=== PATIENT | female | born 1960 | race Two or more races ===

== ENCOUNTER 2017-05-25 16:21 | Inpatient (IN) | payer SELFPAY ==
[2017-05-25] MEDS ORDERED: METOCLOPRAMIDE HCL 10 MG/2 ML VIAL. IV (16:30)
[2017-05-25] MEDS ORDERED: diphenhydrAMINE HCL 25 MG CAPSULE PO (16:30)
[2017-05-25] MEDS ORDERED: DEXTROSE 50% 25 GM / 50ML DISP.SYRIN. IV (16:30)
[2017-05-25] MEDS ORDERED: PROMETHAZINE 25 MG in IV DEXTROSE 5% 50 ML IV (16:30)
[2017-05-25] MEDS ORDERED: ONDANSETRON PF 4 MG/2 ML VIAL. IV (16:30)
[2017-05-25] MEDS: INSULIN ASPART 300 UNITS/3 ML INSULN.PEN SQ (17:00)
[2017-05-25] MEDS: POTASSIUM CL 40MEQ D5-0.45NACL 1,000 ML IV (17:43)
[2017-05-25] MEDS: LIPASE/PROTEAS/AMYLAS 10/34/55 CAPSULE.DR. PO (17:43)
[2017-05-25] MEDS: AZITHROMYCIN 500 MG in IV DEXTROSE 5 %-0.2 % NACL 250 ML IV (17:44)
[2017-05-25] MEDS: fentaNYL PF VIAL 100 MCG/2 ML VIAL IV (19:50)
[2017-05-25] MEDS: METOPROLOL TART IMMED RELEASE 50 MG TABLET. PO (21:14)
[2017-05-25] MEDS: LACTOBACILLUS RHAMNOSUS GG 1 CAPSULE. PO (21:14)
[2017-05-25] MEDS: ZOLPIDEM 5 MG TABLET. PO (23:32)
[2017-05-26 05:30] LABS: HEMATOCRIT 32.4 % (36.0-47.0); HEMOGLOBIN 10.8 g/dL (12.0-15.5); MEAN CORPUSCULAR HEMOGLOBIN 27 pg (25-35); MEAN CORPUSCULAR HGB CONC 33 g/dL (31-37); MEAN CORPUSCULAR VOLUME 81 fL (79-100); PLATELET COUNT 290 x10^3/uL (140-400); RED BLOOD COUNT 3.99 x10^6/uL (3.50-5.40); RED CELL DISTRIBUTION WIDTH 14.7 % (11.5-14.5); WHITE BLOOD COUNT 5.1 x10^3/uL (4.0-11.0)
[2017-05-26 06:02] LABS: ALBUMIN 2.3 g/dL (3.4-5.0); ALBUMIN/GLOBULIN RATIO 0.7 (1.0-1.7); ALK PHOS 94 U/L (46-116); ALT (SGPT) 14 U/L (14-59); ANION GAP 8 (6-14); AST (SGOT) 14 U/L (15-37); BLOOD UREA NITROGEN 12 mg/dL (7-20); BUN/CREATININE RATIO 11 (6-20); CALCIUM 8.3 mg/dL (8.5-10.1); CARBON DIOXIDE 22 mmol/L (21-32); CHLORIDE 101 mmol/L (98-107); CREATININE 1.1 mg/dL (0.6-1.0); GLUCOSE 217 mg/dL (70-99); LIPASE 498 U/L (73-393); POTASSIUM 4.5 mmol/L (3.5-5.1); SODIUM 131 mmol/L (136-145); TOTAL BILIRUBIN 0.3 mg/dL (0.2-1.0); TOTAL PROTEIN 5.5 g/dL (6.4-8.2)
[2017-05-26] MEDS: POTASSIUM CL 40MEQ D5-0.45NACL 1,000 ML IV ×2 (06:19→23:00)
[2017-05-26 07:39] LABS: POC GLUCOSE 124 mg/dL (70-99)
[2017-05-26 08:24] LABS: POC GLUCOSE 232 mg/dL (70-99)
[2017-05-26] MEDS: LIPASE/PROTEAS/AMYLAS 10/34/55 CAPSULE.DR. PO ×3 (08:55→17:00)
[2017-05-26] MEDS: PANTOPRAZOLE 40 MG TABLET.DR. PO (08:55)
[2017-05-26] MEDS: LACTOBACILLUS RHAMNOSUS GG 1 CAPSULE. PO ×2 (08:55→21:00)
[2017-05-26] MEDS: METOPROLOL TART IMMED RELEASE 50 MG TABLET. PO ×2 (08:56→21:00)
[2017-05-26] MEDS: LISINOPRIL 20 MG TABLET PO (08:56)
[2017-05-26] MEDS ORDERED: AZITHRMYCN 500MG IVPB FOR OMNI 250 ML IV (09:00)
[2017-05-26] MEDS: INSULIN ASPART 300 UNITS/3 ML INSULN.PEN SQ ×3 (09:02→17:05)
[2017-05-26] MEDS ORDERED: FAMOTIDINE 20 MG/2 ML VIAL (09:28)
[2017-05-26] MEDS ORDERED: fentaNYL PF VIAL 100 MCG/2 ML VIAL (09:28)
[2017-05-26] MEDS ORDERED: PROPOFOL 20 ML IV (09:28)
[2017-05-26] MEDS ORDERED: MIDAZOLAM HCL/PF 2 MG/2 ML VIAL. (09:28)
[2017-05-26] MEDS ORDERED: DEXAMETHASONE SOD PHOS 20 MG/5 ML VIAL. (09:28)
[2017-05-26] MEDS ORDERED: METOCLOPRAMIDE HCL 10 MG/2 ML VIAL. ×2 (09:29→09:51)
[2017-05-26] MEDS ORDERED: ONDANSETRON PF 4 MG/2 ML VIAL. (09:29)
[2017-05-26] MEDS ORDERED: SUCCINYLCHOLINE 200 MG/10 ML VIAL. (09:45)
[2017-05-26 09:50] LABS: POC GLUCOSE 241 mg/dL (70-99)
[2017-05-26] MEDS: IV RINGERS,LACTATED 1000ML 1,000 ML IV (09:52)
[2017-05-26] MEDS ORDERED: MORPHINE SULFATE 4 MG/ML DISP.SYRIN. IV (10:00)
[2017-05-26] MEDS ORDERED: fentaNYL PF VIAL 100 MCG/2 ML VIAL IV ×2 (10:00)
[2017-05-26] MEDS ORDERED: ONDANSETRON PF 4 MG/2 ML VIAL. IV (10:00)
[2017-05-26] MEDS ORDERED: PROCHLORPERAZINE 10 MG/2 ML VIAL. IV (10:00)
[2017-05-26] MEDS ORDERED: LIDOCAINE 1% PF 2 ML VIAL. ID (10:00)
[2017-05-26] MEDS: HEPARIN for IV BOLUS 10,000 UNIT/10 ML VIAL. (10:11)
[2017-05-26] MEDS: HEPARIN PF 500 UNIT/5 ML DISP.SYRIN. IV (10:11)
[2017-05-26] MEDS: BUPIVACAINE 0.25% 50 ML VIAL. (10:11)
[2017-05-26] MEDS: hydrALAZINE 20 MG/ML VIAL. IVP (11:27)
[2017-05-26 12:11] LABS: POC GLUCOSE 230 mg/dL (70-99)
[2017-05-26] MEDS: AZITHROMYCIN 500 MG in IV DEXTROSE 5 %-0.2 % NACL 250 ML IV (16:55)
[2017-05-26] MEDS: fentaNYL PF VIAL 100 MCG/2 ML VIAL IV (17:10)
[2017-05-26 17:15] LABS: POC GLUCOSE 313 mg/dL (70-99)
[2017-05-26 21:14] LABS: POC GLUCOSE 295 mg/dL (70-99)
[2017-05-26] MEDS: ZOLPIDEM 5 MG TABLET. PO (21:31)
[2017-05-27 08:27] LABS: POC GLUCOSE 274 mg/dL (70-99)
[2017-05-27] MEDS ORDERED: HYDROcodone/APAP 5/325MG 1 TAB TABLET PO (09:45)
[2017-05-27] MEDS ORDERED: traMADol 50 MG TABLET PO (09:45)
[2017-05-27] MEDS ORDERED: PROMETHAZINE 25 MG SUPP.RECT. PR (09:45)
[2017-05-27] MEDS: METOPROLOL TART IMMED RELEASE 50 MG TABLET. PO (09:47)
[2017-05-27] MEDS: LISINOPRIL 20 MG TABLET PO (09:47)
[2017-05-27] MEDS: LIPASE/PROTEAS/AMYLAS 10/34/55 CAPSULE.DR. PO ×2 (09:48→12:37)
[2017-05-27] MEDS: PANTOPRAZOLE 40 MG TABLET.DR. PO (09:48)
[2017-05-27] MEDS: LACTOBACILLUS RHAMNOSUS GG 1 CAPSULE. PO (09:48)
[2017-05-27] MEDS: fentaNYL PF VIAL 100 MCG/2 ML VIAL IV (09:49)
[2017-05-27] MEDS: INSULIN ASPART 300 UNITS/3 ML INSULN.PEN SQ ×3 (09:52→11:30)
[2017-05-27] MEDS ORDERED: LISINOPRIL 20 MG TABLET PO (10:00)
[2017-05-27 10:32] LABS: ANION GAP 12 (6-14); BLOOD UREA NITROGEN 11 mg/dL (7-20); CALCIUM 8.4 mg/dL (8.5-10.1); CARBON DIOXIDE 21 mmol/L (21-32); CHLORIDE 98 mmol/L (98-107); CREATININE 0.9 mg/dL (0.6-1.0); GFR 64.3; GLUCOSE 312 mg/dL (70-99); POTASSIUM 4.3 mmol/L (3.5-5.1); SODIUM 131 mmol/L (136-145)
[2017-05-27 10:34] LABS: LIPASE 636 U/L (73-393)
[2017-05-27] MEDS: CITALOPRAM 20 MG TABLET. PO (11:05)
[2017-05-27] MEDS: EZETIMIBE 10 MG TABLET. PO (11:06)
[2017-05-27] MEDS: CLOPIDOGREL BISULFATE 75 MG TABLET PO (11:06)
[2017-05-27 11:08] LABS: POC GLUCOSE 238 mg/dL (70-99)
[2017-05-27] MEDS ORDERED: LIPASE/PROTEAS/AMYLAS 10/34/55 CAPSULE.DR. PO (12:00)
[2017-05-27] MEDS: POTASSIUM CL 40MEQ D5-0.45NACL 1,000 ML IV (12:36)
[2017-05-27] MEDS: HEPARIN PF 500 UNIT/5 ML DISP.SYRIN. IV (16:15)
[2017-05-27] MEDS ORDERED: NON FORMULARY ITEM (Zolpidem Tartrate (Ambien) 1 TAB) PO (21:00)
[2017-05-27] MEDS ORDERED: metroNIDAZOLE 500 MG TABLET PO (21:00)
[2017-05-27] MEDS ORDERED: traZODone 100 MG TABLET. PO (21:00)
[2017-05-27] MEDS ORDERED: ATORVASTATIN CALCIUM 10 MG TABLET. PO (21:00)
[2017-05-27] MEDS ORDERED: AMITRIPTYLINE HCL 10 MG TABLET. PO (21:00)
[2017-05-27] MEDS ORDERED: CARVEDILOL 3.125 MG TABLET. PO (21:00)
[2017-05-27] MEDS ORDERED: INSULIN DETEMIR 300 UNITS/3 ML INSULN.PEN. SQ (21:00)
[2017-05-27] MEDS ORDERED: ZOLPIDEM 5 MG TABLET. PO (21:00)
[2017-05-28] MEDS ORDERED: METOPROLOL SUCC 24HR ER 25 MG TAB.ER.24H. PO (09:00)
[2017-05-28] MEDS ORDERED: NON FORMULARY ITEM (Omeprazole 40 MG) PO (09:00)
== END 2017-05-27 16:15 | disposition home or self-care (01) | DRG 74 ==
LOC: 5 NORTH 16:21
PROVIDERS: Internal Medicine
PROC: 0JH60WZ Insertion of Totally Implantable Vascular Access Device into Chest Subcutaneous Tissue and Fascia, Open Approach (ICD-10-PCS; principal; 2017-05-26 09:50)
PROC: 02HV33Z Insertion of Infusion Device into Superior Vena Cava, Percutaneous Approach (ICD-10-PCS; 2017-05-26 09:50)
PROC: B5181ZA Fluoroscopy of Superior Vena Cava using Low Osmolar Contrast, Guidance (ICD-10-PCS; 2017-05-26 09:50)
DX: E11.43 Type 2 diabetes mellitus with diabetic autonomic (poly)neuropathy (principal); K31.84 Gastroparesis; E11.10 Type 2 diabetes mellitus with ketoacidosis without coma; E78.5 Hyperlipidemia, unspecified; F32.9 Major depressive disorder, single episode, unspecified; I10 Essential (primary) hypertension; I25.10 Atherosclerotic heart disease of native coronary artery without angina pectoris; I25.2 Old myocardial infarction; K21.9 Gastro-esophageal reflux disease without esophagitis; K57.30 Diverticulosis of large intestine without perforation or abscess without bleeding; Z82.49 Family history of ischemic heart disease and other diseases of the circulatory system; Z83.3 Family history of diabetes mellitus; Z85.3 Personal history of malignant neoplasm of breast; Z87.11 Personal history of peptic ulcer disease; Z90.11 Acquired absence of right breast and nipple; Z90.49 Acquired absence of other specified parts of digestive tract; Z95.5 Presence of coronary angioplasty implant and graft; F41.9 Anxiety disorder, unspecified; M19.90 Unspecified osteoarthritis, unspecified site; Z90.10 Acquired absence of unspecified breast and nipple; Z80.9 Family history of malignant neoplasm, unspecified
CPT/HCPCS: 36415; 36556; 80048; 80053; 82962; 83690; 85027; C1788; J0330; J0360; J0456; J1100; J1644; J1815; J1956; J2250; J2405; J2704; J2765; J3010; J3490; J7042; S0028

== ENCOUNTER 2017-06-08 19:24 | Inpatient (IN) | payer SELFPAY ==
[2017-06-08] MEDS ORDERED: hydrALAZINE 20 MG/ML VIAL. IVP (21:15)
[2017-06-08] MEDS ORDERED: DEXTROSE 50% 25 GM / 50ML DISP.SYRIN. IV (21:15)
[2017-06-08] MEDS ORDERED: METOCLOPRAMIDE HCL 10 MG/2 ML VIAL. IV (21:15)
[2017-06-08] MEDS: IV NORMAL SALINE 1000ML BAG 1,000 ML IV (21:15)
[2017-06-08] MEDS: traZODone 100 MG TABLET. PO (22:23)
[2017-06-08] MEDS: ONDANSETRON ODT 4 MG TAB.RAPDIS. PO (22:23)
[2017-06-09] MEDS: IV NORMAL SALINE 1000ML BAG 1,000 ML IV ×2 (07:15→17:24)
[2017-06-09] MEDS: PANTOPRAZOLE IV PUSH 40 MG VIAL. IVP (07:30)
[2017-06-09 07:45] LABS: ADD MAN DIFF? NO
[2017-06-09 07:49] LABS: BASO % 1 % (0-3); EOS # 0.1 x10^3/uL (0.0-0.7); EOS % 2 % (0-3); HEMATOCRIT 29.2 % (36.0-47.0); HEMOGLOBIN 9.7 g/dL (12.0-15.5); LYMPH # 1.2 x10^3/uL (1.0-4.8); LYMPH % 28 % (24-48); MEAN CORPUSCULAR HEMOGLOBIN 27 pg (25-35); MEAN CORPUSCULAR HGB CONC 33 g/dL (31-37); MEAN CORPUSCULAR VOLUME 81 fL (79-100); MONO # 0.4 x10^3/uL (0.0-1.1); MONO % 9 % (0-9); NEUT # 2.6 x10^3uL (1.8-7.7); NEUT % 61 % (31-73); PLATELET COUNT 260 x10^3/uL (140-400); RED CELL DISTRIBUTION WIDTH 14.7 % (11.5-14.5); WHITE BLOOD COUNT 4.3 x10^3/uL (4.0-11.0)
[2017-06-09] MEDS ORDERED: INSULIN ASPART 300 UNITS/3 ML INSULN.PEN SQ (08:00)
[2017-06-09 08:05] LABS: POC GLUCOSE 173 mg/dL (70-99)
[2017-06-09 08:06] LABS: ALBUMIN 2.5 g/dL (3.4-5.0); ALBUMIN/GLOBULIN RATIO 0.7 (1.0-1.7); ALK PHOS 80 U/L (46-116); ALT (SGPT) 10 U/L (14-59); ANION GAP 10 (6-14); AST (SGOT) 17 U/L (15-37); BLOOD UREA NITROGEN 7 mg/dL (7-20); BUN/CREATININE RATIO 10 (6-20); CALCIUM 8.1 mg/dL (8.5-10.1); CARBON DIOXIDE 23 mmol/L (21-32); CHLORIDE 103 mmol/L (98-107); CREATININE 0.7 mg/dL (0.6-1.0); GFR 85.9; GLUCOSE 183 mg/dL (70-99); SODIUM 136 mmol/L (136-145); TOTAL BILIRUBIN 0.3 mg/dL (0.2-1.0); TOTAL PROTEIN 5.9 g/dL (6.4-8.2)
[2017-06-09] MEDS: LISINOPRIL 20 MG TABLET PO (08:30)
[2017-06-09] MEDS: LIPASE/PROTEAS/AMYLAS 10/34/55 CAPSULE.DR. PO ×4 (08:30→22:10)
[2017-06-09] MEDS: CLOPIDOGREL BISULFATE 75 MG TABLET PO (08:30)
[2017-06-09] MEDS: CARVEDILOL 12.5 MG TABLET. PO ×2 (08:31→17:23)
[2017-06-09] MEDS: CITALOPRAM 20 MG TABLET. PO (08:31)
[2017-06-09] MEDS: INSULIN ASPART 300 UNITS/3 ML INSULN.PEN SQ ×3 (09:26→17:00)
[2017-06-09] MEDS: PANTOPRAZOLE 40 MG TABLET.DR. PO (09:27)
[2017-06-09] MEDS: METOCLOPRAMIDE ORAL SOLN 10 MG/10 ML SOLUTION. PO ×2 (09:27→11:49)
[2017-06-09] MEDS ORDERED: DEXTROSE 50% 25 GM / 50ML DISP.SYRIN. IV (10:45)
[2017-06-09] MEDS: HYDROcodone/APAP 7.5/325MG 1 TAB TABLET PO ×2 (11:12→17:23)
[2017-06-09 11:27] LABS: POC GLUCOSE 200 mg/dL (70-99)
[2017-06-09] MEDS ORDERED: METOCLOPRAMIDE ORAL SOLN 10 MG/10 ML SOLUTION. PO (11:30)
[2017-06-09] MEDS: ONDANSETRON ODT 4 MG TAB.RAPDIS. PO (14:48)
[2017-06-09] MEDS: cloNIDine HCL 0.1 MG TABLET PO (14:48)
[2017-06-09] MEDS: METOCLOPRAMIDE HCL 10 MG/2 ML VIAL. IV ×3 (16:30→22:10)
[2017-06-09 17:17] LABS: POC GLUCOSE 198 mg/dL (70-99)
[2017-06-09 20:32] LABS: POC GLUCOSE 148 mg/dL (70-99)
[2017-06-09] MEDS: traZODone 100 MG TABLET. PO (22:10)
[2017-06-10] MEDS: IV NORMAL SALINE 1000ML BAG 1,000 ML IV (03:29)
[2017-06-10] MEDS: INSULIN ASPART 300 UNITS/3 ML INSULN.PEN SQ ×3 (08:00→17:05)
[2017-06-10 08:30] LABS: POC GLUCOSE 136 mg/dL (70-99)
[2017-06-10] MEDS: METOCLOPRAMIDE HCL 10 MG/2 ML VIAL. IV ×4 (08:54→20:58)
[2017-06-10] MEDS: PANTOPRAZOLE IV PUSH 40 MG VIAL. IVP (08:54)
[2017-06-10] MEDS: LIPASE/PROTEAS/AMYLAS 10/34/55 CAPSULE.DR. PO ×4 (08:55→20:58)
[2017-06-10] MEDS: CLOPIDOGREL BISULFATE 75 MG TABLET PO (08:55)
[2017-06-10] MEDS: CITALOPRAM 20 MG TABLET. PO (08:55)
[2017-06-10] MEDS: CARVEDILOL 12.5 MG TABLET. PO ×2 (08:55→17:00)
[2017-06-10] MEDS: LISINOPRIL 20 MG TABLET PO (09:01)
[2017-06-10] MEDS: AMINO AC 3%/ELECTROLYTE/GLYCER 1,000 ML IV (11:32)
[2017-06-10 11:34] LABS: POC GLUCOSE 274 mg/dL (70-99)
[2017-06-10 16:41] LABS: POC GLUCOSE 188 mg/dL (70-99)
[2017-06-10] MEDS: traZODone 100 MG TABLET. PO (20:58)
[2017-06-10 21:12] LABS: POC GLUCOSE 244 mg/dL (70-99)
[2017-06-11] MEDS: AMINO AC 3%/ELECTROLYTE/GLYCER 1,000 ML IV (00:14)
[2017-06-11 03:12] LABS: HEMOGLOBIN A1C 8.1 % (4.8-5.6)
[2017-06-11] MEDS: METOCLOPRAMIDE HCL 10 MG/2 ML VIAL. IV ×4 (07:55→20:35)
[2017-06-11] MEDS: PANTOPRAZOLE IV PUSH 40 MG VIAL. IVP (07:56)
[2017-06-11 08:08] LABS: POC GLUCOSE 263 mg/dL (70-99)
[2017-06-11] MEDS: CARVEDILOL 12.5 MG TABLET. PO ×2 (08:26→17:08)
[2017-06-11] MEDS: LIPASE/PROTEAS/AMYLAS 10/34/55 CAPSULE.DR. PO ×4 (08:26→20:36)
[2017-06-11] MEDS: CITALOPRAM 20 MG TABLET. PO (08:26)
[2017-06-11] MEDS: CLOPIDOGREL BISULFATE 75 MG TABLET PO (08:26)
[2017-06-11] MEDS: LISINOPRIL 20 MG TABLET PO (08:26)
[2017-06-11] MEDS: INSULIN ASPART 300 UNITS/3 ML INSULN.PEN SQ ×4 (08:30→17:11)
[2017-06-11 08:51] LABS: ADD MAN DIFF? NO
[2017-06-11 08:58] LABS: BASO % 1 % (0-3); EOS # 0.1 x10^3/uL (0.0-0.7); EOS % 1 % (0-3); HEMATOCRIT 34.2 % (36.0-47.0); HEMOGLOBIN 11.1 g/dL (12.0-15.5); LYMPH # 1.2 x10^3/uL (1.0-4.8); LYMPH % 26 % (24-48); MEAN CORPUSCULAR HEMOGLOBIN 27 pg (25-35); MEAN CORPUSCULAR HGB CONC 32 g/dL (31-37); MEAN CORPUSCULAR VOLUME 82 fL (79-100); MONO # 0.4 x10^3/uL (0.0-1.1); MONO % 8 % (0-9); NEUT % 65 % (31-73); PLATELET COUNT 258 x10^3/uL (140-400); RED BLOOD COUNT 4.17 x10^6/uL (3.50-5.40); RED CELL DISTRIBUTION WIDTH 14.8 % (11.5-14.5); WHITE BLOOD COUNT 4.7 x10^3/uL (4.0-11.0)
[2017-06-11 09:16] LABS: ANION GAP 9 (6-14); BLOOD UREA NITROGEN 10 mg/dL (7-20); CALCIUM 9.2 mg/dL (8.5-10.1); CARBON DIOXIDE 26 mmol/L (21-32); CHLORIDE 100 mmol/L (98-107); CREATININE 0.8 mg/dL (0.6-1.0); GFR 73.7; GLUCOSE 307 mg/dL (70-99); SODIUM 135 mmol/L (136-145)
[2017-06-11] MEDS ORDERED: MORPHINE SULFATE 4 MG/ML DISP.SYRIN. IV (11:00)
[2017-06-11] MEDS ORDERED: DOCUSATE SODIUM 100 MG CAPSULE. PO (11:00)
[2017-06-11] MEDS ORDERED: ONDANSETRON PF 4 MG/2 ML VIAL. IV (11:00)
[2017-06-11] MEDS ORDERED: ACETAMINOPHEN 325 MG TABLET. PO (11:00)
[2017-06-11] MEDS ORDERED: hydrALAZINE 20 MG/ML VIAL. IVP (11:00)
[2017-06-11] MEDS ORDERED: traMADol 50 MG TABLET PO (11:00)
[2017-06-11 12:18] LABS: POC GLUCOSE 275 mg/dL (70-99)
[2017-06-11 16:54] LABS: POC GLUCOSE 241 mg/dL (70-99)
[2017-06-11] MEDS: traZODone 100 MG TABLET. PO (20:36)
[2017-06-11] MEDS: INSULIN GLARGINE 300 UNITS/3 ML INSULN.PEN. SQ (20:37)
[2017-06-12] MEDS: PANTOPRAZOLE 40 MG TABLET.DR. PO (07:32)
[2017-06-12] MEDS: METOCLOPRAMIDE HCL 10 MG/2 ML VIAL. IV (07:32)
[2017-06-12 07:53] LABS: POC GLUCOSE 169 mg/dL (70-99)
[2017-06-12] MEDS ORDERED: IOHEXOL 240 MG/ML 50ML VIAL. (07:55)
[2017-06-12] MEDS: INSULIN ASPART 300 UNITS/3 ML INSULN.PEN SQ ×4 (08:00→12:04)
[2017-06-12] MEDS: IOHEXOL 240 MG/ML 50ML VIAL. IV (08:13)
[2017-06-12] MEDS: LIPASE/PROTEAS/AMYLAS 10/34/55 CAPSULE.DR. PO ×2 (09:09→12:01)
[2017-06-12] MEDS: LISINOPRIL 20 MG TABLET PO (09:09)
[2017-06-12] MEDS: CARVEDILOL 12.5 MG TABLET. PO (09:10)
[2017-06-12] MEDS: CLOPIDOGREL BISULFATE 75 MG TABLET PO (09:10)
[2017-06-12] MEDS: CITALOPRAM 20 MG TABLET. PO (09:10)
[2017-06-12 09:36] LABS: ADD MAN DIFF? NO
[2017-06-12 09:38] LABS: BASO % 1 % (0-3); EOS # 0.1 x10^3/uL (0.0-0.7); EOS % 1 % (0-3); HEMATOCRIT 29.1 % (36.0-47.0); HEMOGLOBIN 9.5 g/dL (12.0-15.5); LYMPH % 25 % (24-48); MEAN CORPUSCULAR HEMOGLOBIN 26 pg (25-35); MEAN CORPUSCULAR HGB CONC 33 g/dL (31-37); MEAN CORPUSCULAR VOLUME 81 fL (79-100); MONO # 0.4 x10^3/uL (0.0-1.1); MONO % 10 % (0-9); NEUT # 2.7 x10^3uL (1.8-7.7); NEUT % 63 % (31-73); PLATELET COUNT 246 x10^3/uL (140-400); RED CELL DISTRIBUTION WIDTH 14.9 % (11.5-14.5); WHITE BLOOD COUNT 4.2 x10^3/uL (4.0-11.0)
[2017-06-12 09:48] LABS: ANION GAP 6 (6-14); BLOOD UREA NITROGEN 11 mg/dL (7-20); CALCIUM 8.4 mg/dL (8.5-10.1); CARBON DIOXIDE 27 mmol/L (21-32); CHLORIDE 102 mmol/L (98-107); CREATININE 0.8 mg/dL (0.6-1.0); GFR 73.7; GLUCOSE 290 mg/dL (70-99); POTASSIUM 3.8 mmol/L (3.5-5.1); SODIUM 135 mmol/L (136-145)
[2017-06-12 11:54] LABS: POC GLUCOSE 204 mg/dL (70-99)
[2017-06-12] MEDS: METOCLOPRAMIDE ORAL SOLN 10 MG/10 ML SOLUTION. PO (12:08)
[2017-06-12] MEDS: HEPARIN PF 500 UNIT/5 ML DISP.SYRIN. IV (16:59)
== END 2017-06-12 17:01 | disposition home or self-care (01) | DRG 74 ==
LOC: 5 NORTH 19:24
PROC: B5181ZZ Fluoroscopy of Superior Vena Cava using Low Osmolar Contrast (ICD-10-PCS; principal; 2017-06-12)
DX: E11.43 Type 2 diabetes mellitus with diabetic autonomic (poly)neuropathy (principal); E11.65 Type 2 diabetes mellitus with hyperglycemia; K31.84 Gastroparesis; E78.5 Hyperlipidemia, unspecified; F32.9 Major depressive disorder, single episode, unspecified; I10 Essential (primary) hypertension; I16.0 Hypertensive urgency; I25.10 Atherosclerotic heart disease of native coronary artery without angina pectoris; I25.2 Old myocardial infarction; K21.9 Gastro-esophageal reflux disease without esophagitis; K57.30 Diverticulosis of large intestine without perforation or abscess without bleeding; T38.0X5A Adverse effect of glucocorticoids and synthetic analogues, initial encounter; Z82.49 Family history of ischemic heart disease and other diseases of the circulatory system; Z83.3 Family history of diabetes mellitus; Z85.3 Personal history of malignant neoplasm of breast; Z87.11 Personal history of peptic ulcer disease; Z90.11 Acquired absence of right breast and nipple; Z90.49 Acquired absence of other specified parts of digestive tract; Z95.5 Presence of coronary angioplasty implant and graft; F41.9 Anxiety disorder, unspecified; M19.90 Unspecified osteoarthritis, unspecified site; Z90.10 Acquired absence of unspecified breast and nipple; Z80.9 Family history of malignant neoplasm, unspecified; G89.29 Other chronic pain
CPT/HCPCS: 36415; 36598; 80048; 80053; 82962; 83036; 85025; C9113; J1815; J2765; J7030; J8597; Q0162; Q9966

== ENCOUNTER 2017-07-13 04:52 | Inpatient (IN) | payer SELFPAY ==
[2017-07-13] MEDS: ONDANSETRON PF 4 MG/2 ML VIAL. IV ×2 (05:52→20:12)
[2017-07-13] MEDS: fentaNYL PF VIAL 100 MCG/2 ML VIAL IV ×2 (05:52→09:06)
[2017-07-13] MEDS: IV NORMAL SALINE 1000ML BAG 1,000 ML IV (05:52)
[2017-07-13] MEDS ORDERED: C.DIFF MED SCREEN BY RX. MC (07:45)
[2017-07-13 08:02] LABS: POC GLUCOSE 310 mg/dL (70-99)
[2017-07-13] MEDS: LABETALOL 20 MG/4 ML DISP.SYRIN. IVP ×2 (08:28→20:12)
[2017-07-13] MEDS: METOCLOPRAMIDE HCL 10 MG/2 ML VIAL. IV ×3 (11:12→17:27)
[2017-07-13] MEDS: MORPHINE SULFATE 4 MG/ML DISP.SYRIN. IV ×4 (11:13→20:13)
[2017-07-13 11:21] LABS: POC GLUCOSE 298 mg/dL (70-99)
[2017-07-13 11:45] LABS: BASO % 0 % (0-3); EOS % 0 % (0-3); HEMATOCRIT 28.8 % (36.0-47.0); HEMOGLOBIN 9.6 g/dL (12.0-15.5); LYMPH # 0.9 x10^3/uL (1.0-4.8); LYMPH % 7 % (24-48); MEAN CORPUSCULAR HEMOGLOBIN 26 pg (25-35); MEAN CORPUSCULAR HGB CONC 33 g/dL (31-37); MEAN CORPUSCULAR VOLUME 79 fL (79-100); MONO # 0.7 x10^3/uL (0.0-1.1); MONO % 6 % (0-9); NEUT # 10.6 x10^3uL (1.8-7.7); NEUT % 87 % (31-73); PLATELET COUNT 410 x10^3/uL (140-400); RED BLOOD COUNT 3.65 x10^6/uL (3.50-5.40); RED CELL DISTRIBUTION WIDTH 14.5 % (11.5-14.5); WHITE BLOOD COUNT 12.2 x10^3/uL (4.0-11.0)
[2017-07-13 11:53] LABS: ADD MAN DIFF? YES
[2017-07-13] MEDS ORDERED: CONTRAST GIVEN MC (12:00)
[2017-07-13 12:13] LABS: ALBUMIN/GLOBULIN RATIO 0.7 (1.0-1.7); ALK PHOS 115 U/L (46-116); ALT (SGPT) 18 U/L (14-59); ANION GAP 13 (6-14); AST (SGOT) 16 U/L (15-37); BLOOD UREA NITROGEN 15 mg/dL (7-20); BUN/CREATININE RATIO 19 (6-20); CALCIUM 8.5 mg/dL (8.5-10.1); CARBON DIOXIDE 24 mmol/L (21-32); CHLORIDE 94 mmol/L (98-107); CREATININE 0.8 mg/dL (0.6-1.0); GFR 73.4; GLUCOSE 325 mg/dL (70-99); LIPASE 270 U/L (73-393); POTASSIUM 3.3 mmol/L (3.5-5.1); SODIUM 131 mmol/L (136-145); TOTAL BILIRUBIN 0.5 mg/dL (0.2-1.0); TOTAL PROTEIN 7.2 g/dL (6.4-8.2)
[2017-07-13] MEDS: IOHEXOL 300 MG/ML 100ML VIAL. IV (12:16)
[2017-07-13 12:56] LABS: % BANDS 7 % (0-9); % LYMPHS 2 % (24-48); % MONOS 4 % (0-10); % SEGS 87 % (35-66)
[2017-07-13 12:57] LABS: ANISOCYTOSIS SLIGHT; PLT ESTIMATE INCREASED (ADEQUATE)
[2017-07-13] MEDS ORDERED: DEXTROSE 50% 25 GM / 50ML DISP.SYRIN. IV (16:45)
[2017-07-13 17:09] LABS: POC GLUCOSE 206 mg/dL (70-99)
[2017-07-13] MEDS: POTASSIUM CL 40MEQ IN 0.9%NACL 1,000 ML IV (17:30)
[2017-07-13] MEDS: INSULIN LISPRO 300 UNITS/3 ML INSULN.PEN. SQ (18:00)
[2017-07-13] MEDS: CARVEDILOL 12.5 MG TABLET. PO (21:40)
[2017-07-13] MEDS: ATORVASTATIN CALCIUM 40 MG TABLET. PO (21:41)
[2017-07-14] MEDS: METOCLOPRAMIDE HCL 10 MG/2 ML VIAL. IV ×4 (01:05→17:12)
[2017-07-14 01:26] LABS: POC GLUCOSE 235 mg/dL (70-99)
[2017-07-14] MEDS: MORPHINE SULFATE 4 MG/ML DISP.SYRIN. IV ×6 (02:39→21:59)
[2017-07-14 05:57] LABS: POC GLUCOSE 296 mg/dL (70-99)
[2017-07-14] MEDS: INSULIN LISPRO 300 UNITS/3 ML INSULN.PEN. SQ ×4 (06:09→17:23)
[2017-07-14 06:17] LABS: ADD MAN DIFF? NO
[2017-07-14 06:21] LABS: BASO % 0 % (0-3); EOS # 0.1 x10^3/uL (0.0-0.7); EOS % 1 % (0-3); HEMATOCRIT 25.3 % (36.0-47.0); HEMOGLOBIN 8.8 g/dL (12.0-15.5); LYMPH # 1.2 x10^3/uL (1.0-4.8); LYMPH % 14 % (24-48); MEAN CORPUSCULAR HEMOGLOBIN 27 pg (25-35); MEAN CORPUSCULAR HGB CONC 35 g/dL (31-37); MEAN CORPUSCULAR VOLUME 78 fL (79-100); MONO # 0.6 x10^3/uL (0.0-1.1); MONO % 8 % (0-9); NEUT # 6.5 x10^3uL (1.8-7.7); NEUT % 77 % (31-73); PLATELET COUNT 365 x10^3/uL (140-400); RED BLOOD COUNT 3.23 x10^6/uL (3.50-5.40); RED CELL DISTRIBUTION WIDTH 14.5 % (11.5-14.5); WHITE BLOOD COUNT 8.4 x10^3/uL (4.0-11.0)
[2017-07-14 06:35] LABS: ALBUMIN 2.5 g/dL (3.4-5.0); ALBUMIN/GLOBULIN RATIO 0.7 (1.0-1.7); ALK PHOS 105 U/L (46-116); ALT (SGPT) 16 U/L (14-59); ANION GAP 7 (6-14); AST (SGOT) 14 U/L (15-37); BLOOD UREA NITROGEN 16 mg/dL (7-20); BUN/CREATININE RATIO 20 (6-20); CALCIUM 8.2 mg/dL (8.5-10.1); CARBON DIOXIDE 27 mmol/L (21-32); CHLORIDE 100 mmol/L (98-107); CREATININE 0.8 mg/dL (0.6-1.0); GFR 73.4; GLUCOSE 288 mg/dL (70-99); LIPASE 247 U/L (73-393); POTASSIUM 4.3 mmol/L (3.5-5.1); SODIUM 134 mmol/L (136-145); TOTAL BILIRUBIN 0.4 mg/dL (0.2-1.0); TOTAL PROTEIN 6.2 g/dL (6.4-8.2)
[2017-07-14] MEDS: LISINOPRIL 20 MG TABLET PO (10:00)
[2017-07-14] MEDS: CARVEDILOL 12.5 MG TABLET. PO ×2 (10:01→17:12)
[2017-07-14] MEDS: POTASSIUM CL 40MEQ IN 0.9%NACL 1,000 ML IV ×2 (10:02→19:38)
[2017-07-14] MEDS ORDERED: BISACODYL 10 MG SUPP.RECT. PR (10:45)
[2017-07-14] MEDS: POLYETHYLENE GLYCOL 3350 17 GM PACKET. PO (11:00)
[2017-07-14 11:35] LABS: POC GLUCOSE 216 mg/dL (70-99)
[2017-07-14] MEDS: PANTOPRAZOLE 40 MG TABLET.DR. PO (14:39)
[2017-07-14 17:34] LABS: POC GLUCOSE 169 mg/dL (70-99)
[2017-07-14] MEDS: ATORVASTATIN CALCIUM 40 MG TABLET. PO (19:36)
[2017-07-15] MEDS: METOCLOPRAMIDE HCL 10 MG/2 ML VIAL. IV ×3 (00:17→12:20)
[2017-07-15] MEDS: MORPHINE SULFATE 4 MG/ML DISP.SYRIN. IV ×4 (00:18→12:19)
[2017-07-15] MEDS: INSULIN LISPRO 300 UNITS/3 ML INSULN.PEN. SQ ×3 (00:24→12:29)
[2017-07-15 00:35] LABS: POC GLUCOSE 185 mg/dL (70-99)
[2017-07-15 05:56] LABS: POC GLUCOSE 192 mg/dL (70-99)
[2017-07-15 06:16] LABS: HEMATOCRIT 24.6 % (36.0-47.0); HEMOGLOBIN 8.4 g/dL (12.0-15.5); MEAN CORPUSCULAR HEMOGLOBIN 27 pg (25-35); MEAN CORPUSCULAR HGB CONC 34 g/dL (31-37); MEAN CORPUSCULAR VOLUME 79 fL (79-100); PLATELET COUNT 374 x10^3/uL (140-400); RED BLOOD COUNT 3.11 x10^6/uL (3.50-5.40); RED CELL DISTRIBUTION WIDTH 14.4 % (11.5-14.5); WHITE BLOOD COUNT 6.5 x10^3/uL (4.0-11.0)
[2017-07-15 06:24] LABS: ANION GAP 4 (6-14); BLOOD UREA NITROGEN 17 mg/dL (7-20); CALCIUM 8.7 mg/dL (8.5-10.1); CARBON DIOXIDE 32 mmol/L (21-32); CHLORIDE 103 mmol/L (98-107); CREATININE 0.7 mg/dL (0.6-1.0); GFR 85.6; GLUCOSE 221 mg/dL (70-99); POTASSIUM 4.2 mmol/L (3.5-5.1); SODIUM 139 mmol/L (136-145)
[2017-07-15] MEDS: POTASSIUM CL 40MEQ IN 0.9%NACL 1,000 ML IV (07:03)
[2017-07-15] MEDS: LISINOPRIL 20 MG TABLET PO (08:29)
[2017-07-15] MEDS: CARVEDILOL 12.5 MG TABLET. PO (08:29)
[2017-07-15] MEDS: PANTOPRAZOLE 40 MG TABLET.DR. PO (08:29)
[2017-07-15] MEDS: POLYETHYLENE GLYCOL 3350 17 GM PACKET. PO (08:30)
[2017-07-15 12:10] LABS: POC GLUCOSE 171 mg/dL (70-99)
[2017-07-15] MEDS: HEPARIN PF 500 UNIT/5 ML DISP.SYRIN. IV (13:55)
== END 2017-07-15 15:10 | disposition home or self-care (01) | DRG 74 ==
LOC: 6 SOUTH 07-14 19:09 → 5 SOUTH 04:52
PROVIDERS: Internal Medicine
DX: E11.43 Type 2 diabetes mellitus with diabetic autonomic (poly)neuropathy (principal); E11.65 Type 2 diabetes mellitus with hyperglycemia; E78.5 Hyperlipidemia, unspecified; E87.6 Hypokalemia; F32.9 Major depressive disorder, single episode, unspecified; I10 Essential (primary) hypertension; I25.10 Atherosclerotic heart disease of native coronary artery without angina pectoris; I25.2 Old myocardial infarction; K21.9 Gastro-esophageal reflux disease without esophagitis; K31.84 Gastroparesis; K57.30 Diverticulosis of large intestine without perforation or abscess without bleeding; Z82.49 Family history of ischemic heart disease and other diseases of the circulatory system; Z83.3 Family history of diabetes mellitus; Z85.3 Personal history of malignant neoplasm of breast; Z87.11 Personal history of peptic ulcer disease; Z90.11 Acquired absence of right breast and nipple; Z90.49 Acquired absence of other specified parts of digestive tract; Z93.4 Other artificial openings of gastrointestinal tract status; Z95.5 Presence of coronary angioplasty implant and graft; F41.9 Anxiety disorder, unspecified; M19.90 Unspecified osteoarthritis, unspecified site; Z90.10 Acquired absence of unspecified breast and nipple; Z80.9 Family history of malignant neoplasm, unspecified
CPT/HCPCS: 36415; 74177; 80048; 80053; 82962; 83690; 85007; 85025; 85027; J1815; J2270; J2405; J2765; J3010; J3480; J3490; J7030; Q9967

== ENCOUNTER 2017-09-22 11:47 | Inpatient (IN) | payer SELFPAY ==
[2017-09-22] MEDS: IOHEXOL 300 MG/ML 100ML VIAL. IV (12:30)
[2017-09-22] MEDS ORDERED: CONTRAST GIVEN. MC (12:45)
[2017-09-22 13:47] LABS: ADD MAN DIFF? NO
[2017-09-22] MEDS: IV NORMAL SALINE 1000ML BAG 1,000 ML IV ×2 (13:49→19:37)
[2017-09-22] MEDS: PANTOPRAZOLE IV PUSH 40 MG VIAL. IVP (13:50)
[2017-09-22] MEDS: ONDANSETRON PF 4 MG/2 ML VIAL. IV (13:50)
[2017-09-22] MEDS: fentaNYL PF VIAL 100 MCG/2 ML VIAL IV (13:51)
[2017-09-22 13:56] LABS: BASO % 0 % (0-3); EOS % 0 % (0-3); HEMATOCRIT 28.9 % (36.0-47.0); HEMOGLOBIN 9.7 g/dL (12.0-15.5); LYMPH # 0.7 x10^3/uL (1.0-4.8); LYMPH % 12 % (24-48); MEAN CORPUSCULAR HEMOGLOBIN 28 pg (25-35); MEAN CORPUSCULAR HGB CONC 34 g/dL (31-37); MEAN CORPUSCULAR VOLUME 82 fL (79-100); MONO # 0.4 x10^3/uL (0.0-1.1); MONO % 7 % (0-9); NEUT # 4.9 x10^3uL (1.8-7.7); NEUT % 81 % (31-73); PLATELET COUNT 293 x10^3/uL (140-400); RED BLOOD COUNT 3.54 x10^6/uL (3.50-5.40); RED CELL DISTRIBUTION WIDTH 18.8 % (11.5-14.5); WHITE BLOOD COUNT 6.1 x10^3/uL (4.0-11.0)
[2017-09-22 14:01] LABS: ANION GAP 7 (6-14); BLOOD UREA NITROGEN 16 mg/dL (7-20); BUN/CREATININE RATIO 20 (6-20); CALCIUM 8.6 mg/dL (8.5-10.1); CARBON DIOXIDE 28 mmol/L (21-32); CHLORIDE 97 mmol/L (98-107); CREATININE 0.8 mg/dL (0.6-1.0); GFR 73.4; GLUCOSE 297 mg/dL (70-99); POTASSIUM 4.3 mmol/L (3.5-5.1); SODIUM 132 mmol/L (136-145)
[2017-09-22 14:09] LABS: ALBUMIN 2.8 g/dL (3.4-5.0); ALK PHOS 167 U/L (46-116); ALT (SGPT) 65 U/L (14-59); CREATINE KINASE 26 U/L (26-192); DIRECT BILIRUBIN 0.1 mg/dL (0.0-0.2); LIPASE 290 U/L (73-393); TOTAL BILIRUBIN 0.2 mg/dL (0.2-1.0); TOTAL PROTEIN 5.7 g/dL (6.4-8.2)
[2017-09-22 14:10] LABS: TROPONINI < 0.017 ng/mL (0.000-0.055)
[2017-09-22 14:19] LABS: AST (SGOT) 13 U/L (15-37)
[2017-09-22 15:55] LABS: BILIRUBIN,URINE NEGATIVE (NEG); CLARITY,URINE CLEAR; COLOR,URINE YELLOW; GLUCOSE,URINE >=1000 mg/dL (NEG); NITRITE,URINE NEGATIVE (NEG); PH,URINE 6.5; PROTEIN,URINE >=300 mg/dL (NEG-TRACE); UROBILINOGEN,URINE 0.2 mg/dL (0.2 mg/dL)
[2017-09-22] MEDS ORDERED: fentaNYL PF VIAL 100 MCG/2 ML VIAL IV (16:00)
[2017-09-22] MEDS ORDERED: ACETAMINOPHEN 325 MG TABLET. PO (16:00)
[2017-09-22] MEDS ORDERED: ONDANSETRON PF 4 MG/2 ML VIAL. IV ×2 (16:00→17:45)
[2017-09-22 16:07] LABS: BARBITURATES NEG (NEG); BENZODIAZEPINES NEG (NEG); CANNABINOIDS NEG (NEG); COCAINE NEG (NEG); METHADONE NEG (NEG); OPIATES POS (NEG); PHENCYCLIDINE NEG (NEG)
[2017-09-22 16:08] LABS: AMPHETAMINE/METHAMPHETAMINE NEG (NEG); ETHANOL, URINE NEG (NEG)
[2017-09-22 16:13] LABS: BACTERIA,URINE FEW /HPF (0-FEW); RBC,URINE 0 /HPF (0-2); SQUAMOUS EPITHELIAL CELL,UR MOD /LPF; WBC,URINE 20-40 /HPF (0-4)
[2017-09-22] MEDS ORDERED: PROCHLORPERAZINE 10 MG/2 ML VIAL. IV (18:00)
[2017-09-22] MEDS ORDERED: DEXTROSE 50% 25 GM / 50ML DISP.SYRIN. IV (18:00)
[2017-09-22] MEDS ORDERED: ZOLPIDEM 5 MG TABLET. PO (18:15)
[2017-09-22] MEDS: HYDROcodone/APAP 5/325MG 1 TAB TABLET PO (19:04)
[2017-09-22] MEDS: CARVEDILOL 12.5 MG TABLET. PO (19:38)
[2017-09-22] MEDS: traZODone 100 MG TABLET. PO (21:00)
[2017-09-22] MEDS: ZOLPIDEM 5 MG TABLET. PO (21:00)
[2017-09-22] MEDS: ATORVASTATIN CALCIUM 40 MG TABLET. PO (21:00)
[2017-09-22] MEDS: METOCLOPRAMIDE ORAL SOLN 10 MG/10 ML SOLUTION. PO (21:01)
[2017-09-22] MEDS: INSULIN GLARGINE 300 UNITS/3 ML INSULN.PEN. SQ (21:07)
[2017-09-22] MEDS: METOCLOPRAMIDE 10 MG TABLET. PO (21:07)
[2017-09-22] MEDS: ONDANSETRON ODT 4 MG TAB.RAPDIS. PO (21:07)
[2017-09-22 21:09] LABS: POC GLUCOSE 236 mg/dL (70-99)
[2017-09-23] MEDS: IV NORMAL SALINE 1000ML BAG 1,000 ML IV (05:50)
[2017-09-23] MEDS: METOCLOPRAMIDE 10 MG TABLET. PO ×4 (05:51→21:39)
[2017-09-23] MEDS: PANTOPRAZOLE 40 MG TABLET.DR. PO (08:28)
[2017-09-23] MEDS: ASPIRIN ENTERIC COATED 81 MG TABLET.DR. PO (08:29)
[2017-09-23] MEDS: CLOPIDOGREL BISULFATE 75 MG TABLET PO (08:29)
[2017-09-23] MEDS: CITALOPRAM 20 MG TABLET. PO (08:29)
[2017-09-23] MEDS: LIPASE/PROTEAS/AMYLAS 10/32/42 CAPSULE.DR. PO ×3 (08:30→17:30)
[2017-09-23] MEDS: CARVEDILOL 12.5 MG TABLET. PO ×2 (08:30→17:31)
[2017-09-23] MEDS: ONDANSETRON ODT 4 MG TAB.RAPDIS. PO ×4 (08:31→21:39)
[2017-09-23] MEDS: LISINOPRIL 20 MG TABLET PO (08:31)
[2017-09-23] MEDS: METOCLOPRAMIDE ORAL SOLN 10 MG/10 ML SOLUTION. PO ×2 (08:32→12:40)
[2017-09-23] MEDS: HYDROcodone/APAP 5/325MG 1 TAB TABLET PO ×3 (08:36→17:31)
[2017-09-23 08:46] LABS: POC GLUCOSE 249 mg/dL (70-99)
[2017-09-23] MEDS: INSULIN LISPRO 300 UNITS/3 ML INSULN.PEN. SQ ×5 (08:46→17:40)
[2017-09-23 11:35] LABS: POC GLUCOSE 207 mg/dL (70-99)
[2017-09-23] MEDS ORDERED: DEXTROSE 50% 25 GM / 50ML DISP.SYRIN. IV (12:00)
[2017-09-23 17:03] LABS: POC GLUCOSE 156 mg/dL (70-99)
[2017-09-23 20:25] LABS: POC GLUCOSE 197 mg/dL (70-99)
[2017-09-23] MEDS: ZOLPIDEM 5 MG TABLET. PO (21:00)
[2017-09-23] MEDS: ATORVASTATIN CALCIUM 40 MG TABLET. PO (21:39)
[2017-09-23] MEDS: traZODone 100 MG TABLET. PO (21:40)
[2017-09-23] MEDS: INSULIN GLARGINE 300 UNITS/3 ML INSULN.PEN. SQ (21:47)
[2017-09-24] MEDS: PANTOPRAZOLE 40 MG TABLET.DR. PO (06:30)
[2017-09-24] MEDS: METOCLOPRAMIDE 10 MG TABLET. PO ×4 (06:30→21:33)
[2017-09-24 07:38] LABS: POC GLUCOSE 93 mg/dL (70-99)
[2017-09-24] MEDS: INSULIN LISPRO 300 UNITS/3 ML INSULN.PEN. SQ ×6 (08:00→16:45)
[2017-09-24] MEDS: CITALOPRAM 20 MG TABLET. PO (08:57)
[2017-09-24] MEDS: CLOPIDOGREL BISULFATE 75 MG TABLET PO (08:57)
[2017-09-24] MEDS: CARVEDILOL 12.5 MG TABLET. PO ×2 (08:58→16:38)
[2017-09-24] MEDS: ASPIRIN ENTERIC COATED 81 MG TABLET.DR. PO (08:58)
[2017-09-24] MEDS: LISINOPRIL 20 MG TABLET PO (08:58)
[2017-09-24] MEDS: LIPASE/PROTEAS/AMYLAS 10/32/42 CAPSULE.DR. PO ×3 (08:59→16:37)
[2017-09-24] MEDS: ONDANSETRON ODT 4 MG TAB.RAPDIS. PO ×4 (08:59→21:33)
[2017-09-24] MEDS: HYDROcodone/APAP 5/325MG 1 TAB TABLET PO ×2 (11:09→16:37)
[2017-09-24 11:26] LABS: POC GLUCOSE 82 mg/dL (70-99)
[2017-09-24] MEDS: LOPERAMIDE 2 MG CAPSULE PO ×3 (13:00→21:00)
[2017-09-24 16:39] LABS: POC GLUCOSE 197 mg/dL (70-99)
[2017-09-24] MEDS: ZOLPIDEM 5 MG TABLET. PO (21:00)
[2017-09-24 21:23] LABS: POC GLUCOSE 85 mg/dL (70-99)
[2017-09-24] MEDS: ATORVASTATIN CALCIUM 40 MG TABLET. PO (21:33)
[2017-09-24] MEDS: traZODone 100 MG TABLET. PO (21:33)
[2017-09-24] MEDS: INSULIN GLARGINE 300 UNITS/3 ML INSULN.PEN. SQ (21:38)
[2017-09-25] MEDS: HYDROcodone/APAP 5/325MG 1 TAB TABLET PO ×5 (03:09→22:33)
[2017-09-25] MEDS: METOCLOPRAMIDE 10 MG TABLET. PO ×4 (06:36→22:15)
[2017-09-25] MEDS: PANTOPRAZOLE 40 MG TABLET.DR. PO (06:36)
[2017-09-25 07:08] LABS: ALBUMIN 2.4 g/dL (3.4-5.0); ALBUMIN/GLOBULIN RATIO 0.8 (1.0-1.7); ALK PHOS 105 U/L (46-116); ALT (SGPT) 35 U/L (14-59); ANION GAP 5 (6-14); AST (SGOT) 12 U/L (15-37); BLOOD UREA NITROGEN 10 mg/dL (7-20); BUN/CREATININE RATIO 13 (6-20); CALCIUM 8.8 mg/dL (8.5-10.1); CARBON DIOXIDE 30 mmol/L (21-32); CHLORIDE 102 mmol/L (98-107); CREATININE 0.8 mg/dL (0.6-1.0); GFR 73.4; GLUCOSE 102 mg/dL (70-99); POTASSIUM 3.9 mmol/L (3.5-5.1); SODIUM 137 mmol/L (136-145); TOTAL BILIRUBIN 0.2 mg/dL (0.2-1.0); TOTAL PROTEIN 5.4 g/dL (6.4-8.2)
[2017-09-25] MEDS: CLOPIDOGREL BISULFATE 75 MG TABLET PO (08:03)
[2017-09-25] MEDS: LIPASE/PROTEAS/AMYLAS 10/32/42 CAPSULE.DR. PO ×3 (08:03→16:55)
[2017-09-25] MEDS: LISINOPRIL 20 MG TABLET PO (08:03)
[2017-09-25] MEDS: CITALOPRAM 20 MG TABLET. PO (08:04)
[2017-09-25] MEDS: ASPIRIN ENTERIC COATED 81 MG TABLET.DR. PO (08:04)
[2017-09-25] MEDS: CARVEDILOL 12.5 MG TABLET. PO ×2 (08:04→16:09)
[2017-09-25] MEDS: ONDANSETRON ODT 4 MG TAB.RAPDIS. PO ×4 (08:05→22:15)
[2017-09-25] MEDS: INSULIN LISPRO 300 UNITS/3 ML INSULN.PEN. SQ ×6 (08:05→16:58)
[2017-09-25] MEDS: LOPERAMIDE 2 MG CAPSULE PO ×4 (08:05→22:16)
[2017-09-25 08:06] LABS: POC GLUCOSE 92 mg/dL (70-99)
[2017-09-25 11:34] LABS: POC GLUCOSE 71 mg/dL (70-99)
[2017-09-25 16:16] LABS: POC GLUCOSE 165 mg/dL (70-99)
[2017-09-25 21:53] LABS: POC GLUCOSE 107 mg/dL (70-99)
[2017-09-25] MEDS: ATORVASTATIN CALCIUM 40 MG TABLET. PO (22:15)
[2017-09-25] MEDS: traZODone 100 MG TABLET. PO (22:16)
[2017-09-25] MEDS: ZOLPIDEM 5 MG TABLET. PO (22:16)
[2017-09-25] MEDS: INSULIN GLARGINE 300 UNITS/3 ML INSULN.PEN. SQ (22:20)
[2017-09-26] MEDS: METOCLOPRAMIDE 10 MG TABLET. PO ×4 (06:28→22:51)
[2017-09-26] MEDS: PANTOPRAZOLE 40 MG TABLET.DR. PO (06:28)
[2017-09-26 06:44] LABS: HEMATOCRIT 26.3 % (36.0-47.0); HEMOGLOBIN 9.1 g/dL (12.0-15.5); MEAN CORPUSCULAR HEMOGLOBIN 28 pg (25-35); MEAN CORPUSCULAR HGB CONC 35 g/dL (31-37); MEAN CORPUSCULAR VOLUME 82 fL (79-100); PLATELET COUNT 221 x10^3/uL (140-400); RED CELL DISTRIBUTION WIDTH 18.5 % (11.5-14.5); WHITE BLOOD COUNT 3.5 x10^3/uL (4.0-11.0)
[2017-09-26 07:10] LABS: ALBUMIN 2.3 g/dL (3.4-5.0); ALBUMIN/GLOBULIN RATIO 0.8 (1.0-1.7); ALK PHOS 98 U/L (46-116); ALT (SGPT) 29 U/L (14-59); ANION GAP 4 (6-14); AST (SGOT) 12 U/L (15-37); BLOOD UREA NITROGEN 14 mg/dL (7-20); BUN/CREATININE RATIO 18 (6-20); CALCIUM 8.3 mg/dL (8.5-10.1); CARBON DIOXIDE 32 mmol/L (21-32); CHLORIDE 103 mmol/L (98-107); CREATININE 0.8 mg/dL (0.6-1.0); GFR 73.4; GLUCOSE 60 mg/dL (70-99); POTASSIUM 3.8 mmol/L (3.5-5.1); SODIUM 139 mmol/L (136-145); TOTAL BILIRUBIN 0.1 mg/dL (0.2-1.0); TOTAL PROTEIN 5.1 g/dL (6.4-8.2)
[2017-09-26] MEDS: LIPASE/PROTEAS/AMYLAS 10/32/42 CAPSULE.DR. PO ×3 (07:39→17:00)
[2017-09-26] MEDS: HYDROcodone/APAP 5/325MG 1 TAB TABLET PO ×4 (07:39→22:51)
[2017-09-26] MEDS: CITALOPRAM 20 MG TABLET. PO (07:39)
[2017-09-26] MEDS: CLOPIDOGREL BISULFATE 75 MG TABLET PO (07:39)
[2017-09-26] MEDS: ASPIRIN ENTERIC COATED 81 MG TABLET.DR. PO (07:39)
[2017-09-26] MEDS: ONDANSETRON ODT 4 MG TAB.RAPDIS. PO ×4 (07:40→22:51)
[2017-09-26] MEDS: INSULIN LISPRO 300 UNITS/3 ML INSULN.PEN. SQ ×6 (07:40→17:00)
[2017-09-26] MEDS: CARVEDILOL 12.5 MG TABLET. PO ×2 (07:40→16:53)
[2017-09-26] MEDS: LOPERAMIDE 2 MG CAPSULE PO ×4 (07:40→22:51)
[2017-09-26] MEDS: LISINOPRIL 20 MG TABLET PO (07:41)
[2017-09-26 07:47] LABS: POC GLUCOSE 65 mg/dL (70-99)
[2017-09-26 08:02] LABS: SEDIMENTATION RATE 20 (0-25)
[2017-09-26 11:24] LABS: POC GLUCOSE 114 mg/dL (70-99)
[2017-09-26 17:07] LABS: POC GLUCOSE 61 mg/dL (70-99)
[2017-09-26 20:54] LABS: POC GLUCOSE 159 mg/dL (70-99)
[2017-09-26] MEDS: INSULIN GLARGINE 300 UNITS/3 ML INSULN.PEN. SQ (21:00)
[2017-09-26] MEDS: ZOLPIDEM 5 MG TABLET. PO (22:50)
[2017-09-26] MEDS: ATORVASTATIN CALCIUM 40 MG TABLET. PO (22:51)
[2017-09-26] MEDS: traZODone 100 MG TABLET. PO (22:51)
[2017-09-27] MEDS: METOCLOPRAMIDE 10 MG TABLET. PO ×2 (06:13→11:54)
[2017-09-27] MEDS: PANTOPRAZOLE 40 MG TABLET.DR. PO (06:13)
[2017-09-27] MEDS: HYDROcodone/APAP 5/325MG 1 TAB TABLET PO (06:13)
[2017-09-27 07:53] LABS: POC GLUCOSE 109 mg/dL (70-99)
[2017-09-27] MEDS: INSULIN LISPRO 300 UNITS/3 ML INSULN.PEN. SQ ×4 (08:00→12:04)
[2017-09-27] MEDS: LIPASE/PROTEAS/AMYLAS 10/32/42 CAPSULE.DR. PO ×2 (09:21→11:54)
[2017-09-27] MEDS: ASPIRIN ENTERIC COATED 81 MG TABLET.DR. PO (09:23)
[2017-09-27] MEDS: CITALOPRAM 20 MG TABLET. PO (09:23)
[2017-09-27] MEDS: CLOPIDOGREL BISULFATE 75 MG TABLET PO (09:23)
[2017-09-27] MEDS: ONDANSETRON ODT 4 MG TAB.RAPDIS. PO ×2 (09:33→13:32)
[2017-09-27] MEDS: LOPERAMIDE 2 MG CAPSULE PO ×2 (09:36→13:00)
[2017-09-27 11:35] LABS: POC GLUCOSE 130 mg/dL (70-99)
[2017-09-27] MEDS: LISINOPRIL 20 MG TABLET PO (11:59)
[2017-09-27] MEDS: CARVEDILOL 12.5 MG TABLET. PO (13:30)
[2017-09-27] MEDS: HEPARIN PF 500 UNIT/5 ML DISP.SYRIN. IV (13:43)
== END 2017-09-27 14:10 | disposition home or self-care (01) | DRG 392 ==
LOC: 4 NORTH 18:09 → ER 11:47 → 4 NORTH 15:30
DX: K31.84 Gastroparesis (principal); E87.1 Hypo-osmolality and hyponatremia; K56.609 Unspecified intestinal obstruction, unspecified as to partial versus complete obstruction; K86.1 Other chronic pancreatitis; E11.43 Type 2 diabetes mellitus with diabetic autonomic (poly)neuropathy; E78.5 Hyperlipidemia, unspecified; F32.9 Major depressive disorder, single episode, unspecified; I10 Essential (primary) hypertension; I25.10 Atherosclerotic heart disease of native coronary artery without angina pectoris; K21.9 Gastro-esophageal reflux disease without esophagitis; K57.30 Diverticulosis of large intestine without perforation or abscess without bleeding; N85.9 Noninflammatory disorder of uterus, unspecified; F41.9 Anxiety disorder, unspecified; M19.90 Unspecified osteoarthritis, unspecified site; Z79.899 Other long term (current) drug therapy; Z87.440 Personal history of urinary (tract) infections; Z85.3 Personal history of malignant neoplasm of breast; Z91.19 Patient's noncompliance with other medical treatment and regimen; Z86.73 Personal history of transient ischemic attack (TIA), and cerebral infarction without residual deficits; Z90.11 Acquired absence of right breast and nipple; Z90.49 Acquired absence of other specified parts of digestive tract; Z93.1 Gastrostomy status; Z82.49 Family history of ischemic heart disease and other diseases of the circulatory system; Z83.3 Family history of diabetes mellitus; Z95.5 Presence of coronary angioplasty implant and graft; I25.2 Old myocardial infarction; Z90.89 Acquired absence of other organs; Z79.82 Long term (current) use of aspirin; Z79.02 Long term (current) use of antithrombotics/antiplatelets; Z79.4 Long term (current) use of insulin
CPT/HCPCS: 36415; 71046; 74177; 80053; 80076; 80307; 81001; 82550; 82962; 83036; 83690; 84484; 85025; 85027; 85651; 87086; 93005; 96361; 96374; 96375; 99285; 99285-25; C9113; J1815; J2405; J3010; J7030; J8597; Q0162; Q9967

== ENCOUNTER 2017-09-30 00:35 | Emergency (ER) | payer SELFPAY ==
[2017-09-30 01:23] LABS: ADD MAN DIFF? NO
[2017-09-30] MEDS: ONDANSETRON PF 4 MG/2 ML VIAL. IV (01:23)
[2017-09-30] MEDS: IV NORMAL SALINE 1000ML BAG 1,000 ML IV ×2 (01:23→03:57)
[2017-09-30 01:27] LABS: BASO % 0 % (0-3); EOS % 1 % (0-3); HEMATOCRIT 28.6 % (36.0-47.0); HEMOGLOBIN 9.7 g/dL (12.0-15.5); LYMPH # 0.9 x10^3/uL (1.0-4.8); LYMPH % 19 % (24-48); MEAN CORPUSCULAR HEMOGLOBIN 28 pg (25-35); MEAN CORPUSCULAR HGB CONC 34 g/dL (31-37); MEAN CORPUSCULAR VOLUME 82 fL (79-100); MONO # 0.5 x10^3/uL (0.0-1.1); MONO % 10 % (0-9); NEUT # 3.3 x10^3uL (1.8-7.7); NEUT % 70 % (31-73); PLATELET COUNT 250 x10^3/uL (140-400); RED BLOOD COUNT 3.49 x10^6/uL (3.50-5.40); RED CELL DISTRIBUTION WIDTH 18.5 % (11.5-14.5); WHITE BLOOD COUNT 4.7 x10^3/uL (4.0-11.0)
[2017-09-30 01:47] LABS: ANION GAP 9 (6-14); BLOOD UREA NITROGEN 12 mg/dL (7-20); BUN/CREATININE RATIO 17 (6-20); CALCIUM 8.4 mg/dL (8.5-10.1); CARBON DIOXIDE 26 mmol/L (21-32); CHLORIDE 100 mmol/L (98-107); CREATININE 0.7 mg/dL (0.6-1.0); GFR 85.6; GLUCOSE 141 mg/dL (70-99); POTASSIUM 3.3 mmol/L (3.5-5.1); SODIUM 135 mmol/L (136-145)
[2017-09-30 01:54] LABS: ALBUMIN 2.8 g/dL (3.4-5.0); ALBUMIN/GLOBULIN RATIO 0.9 (1.0-1.7); ALK PHOS 99 U/L (46-116); ALT (SGPT) 22 U/L (14-59); AST (SGOT) 15 U/L (15-37); LIPASE 182 U/L (73-393); TOTAL BILIRUBIN 0.3 mg/dL (0.2-1.0)
[2017-09-30 02:48] LABS: BILIRUBIN,URINE NEGATIVE (NEG); CLARITY,URINE CLEAR; COLOR,URINE YELLOW; GLUCOSE,URINE NEGATIVE (NEG); NITRITE,URINE NEGATIVE (NEG); PROTEIN,URINE >=300 mg/dL (NEG-TRACE); UROBILINOGEN,URINE 0.2 mg/dL (0.2 mg/dL)
[2017-09-30 03:15] LABS: BACTERIA,URINE FEW /HPF (0-FEW); SQUAMOUS EPITHELIAL CELL,UR FEW /LPF
[2017-09-30] MEDS ORDERED: CONTRAST GIVEN. MC (03:30)
[2017-09-30] MEDS: IOHEXOL 300 MG/ML 100ML VIAL. IV (03:31)
[2017-09-30] MEDS: MORPHINE SULFATE 4 MG/ML DISP.SYRIN. IV (03:34)
[2017-09-30] MEDS ORDERED: HEPARIN PF 500 UNIT/5 ML DISP.SYRIN. IV ×2 (06:33→07:00)
== END 2017-09-30 06:41 | disposition home or self-care (01) ==
LOC: ER 00:35
DX: R11.2 Nausea with vomiting, unspecified (principal); R10.30 Lower abdominal pain, unspecified; I10 Essential (primary) hypertension; E11.43 Type 2 diabetes mellitus with diabetic autonomic (poly)neuropathy; K31.84 Gastroparesis; I25.2 Old myocardial infarction; Z95.5 Presence of coronary angioplasty implant and graft; I25.10 Atherosclerotic heart disease of native coronary artery without angina pectoris; Z90.49 Acquired absence of other specified parts of digestive tract
CPT/HCPCS: 36415; 51701; 74177; 80053; 81001; 83690; 85025; 96361; 96365; 96374; 96375; 99285-25; J2270; J2405; J7030; Q9967

== ENCOUNTER 2017-10-05 07:08 | Emergency (ER) | payer SELFPAY ==
[2017-10-05] MEDS: IV NORMAL SALINE 1000ML BAG 1,000 ML IV ×2 (08:10→10:16)
[2017-10-05 08:12] LABS: ADD MAN DIFF? NO
[2017-10-05] MEDS: METOCLOPRAMIDE HCL 10 MG/2 ML VIAL. IV (08:13)
[2017-10-05] MEDS: diphenhydrAMINE 50 MG/ML VIAL IVP (08:13)
[2017-10-05 08:15] LABS: BASO % 0 % (0-3); EOS % 1 % (0-3); HEMATOCRIT 29.3 % (36.0-47.0); HEMOGLOBIN 9.8 g/dL (12.0-15.5); LYMPH # 0.6 x10^3/uL (1.0-4.8); LYMPH % 13 % (24-48); MEAN CORPUSCULAR HEMOGLOBIN 27 pg (25-35); MEAN CORPUSCULAR HGB CONC 34 g/dL (31-37); MEAN CORPUSCULAR VOLUME 82 fL (79-100); MONO # 0.4 x10^3/uL (0.0-1.1); MONO % 8 % (0-9); NEUT # 4.1 x10^3uL (1.8-7.7); NEUT % 79 % (31-73); PLATELET COUNT 253 x10^3/uL (140-400); RED BLOOD COUNT 3.59 x10^6/uL (3.50-5.40); RED CELL DISTRIBUTION WIDTH 18.3 % (11.5-14.5); WHITE BLOOD COUNT 5.2 x10^3/uL (4.0-11.0)
[2017-10-05] MEDS: fentaNYL PF VIAL 100 MCG/2 ML VIAL IV ×2 (08:17→09:42)
[2017-10-05 08:21] LABS: ANION GAP 10 (6-14); BLOOD UREA NITROGEN 19 mg/dL (7-20); BUN/CREATININE RATIO 27 (6-20); CALCIUM 8.7 mg/dL (8.5-10.1); CARBON DIOXIDE 25 mmol/L (21-32); CHLORIDE 100 mmol/L (98-107); CREATININE 0.7 mg/dL (0.6-1.0); GFR 85.6; GLUCOSE 306 mg/dL (70-99); POTASSIUM 3.1 mmol/L (3.5-5.1); SODIUM 135 mmol/L (136-145)
[2017-10-05 08:28] LABS: ALBUMIN 2.8 g/dL (3.4-5.0); ALBUMIN/GLOBULIN RATIO 0.8 (1.0-1.7); ALK PHOS 136 U/L (46-116); ALT (SGPT) 20 U/L (14-59); AST (SGOT) 10 U/L (15-37); LIPASE 188 U/L (73-393); TOTAL BILIRUBIN 0.2 mg/dL (0.2-1.0); TOTAL PROTEIN 6.3 g/dL (6.4-8.2)
[2017-10-05 09:26] LABS: BILIRUBIN,URINE NEGATIVE (NEG); CLARITY,URINE CLEAR; COLOR,URINE YELLOW; GLUCOSE,URINE >=1000 mg/dL (NEG); NITRITE,URINE NEGATIVE (NEG); PH,URINE 6.5; PROTEIN,URINE >=300 mg/dL (NEG-TRACE); UROBILINOGEN,URINE 0.2 mg/dL (0.2 mg/dL)
[2017-10-05 09:32] LABS: AMPHETAMINE/METHAMPHETAMINE NEG (NEG); BARBITURATES NEG (NEG); BENZODIAZEPINES NEG (NEG); CANNABINOIDS NEG (NEG); COCAINE NEG (NEG); ETHANOL, URINE NEG (NEG); METHADONE NEG (NEG); OPIATES POS (NEG); PHENCYCLIDINE NEG (NEG)
[2017-10-05 09:36] LABS: BACTERIA,URINE 0 /HPF (0-FEW); SQUAMOUS EPITHELIAL CELL,UR FEW /LPF; WBC,URINE OCC /HPF (0-4)
[2017-10-05] MEDS: PROCHLORPERAZINE 10 MG/2 ML VIAL. IV (09:38)
== END 2017-10-05 11:32 | disposition home or self-care (01) ==
LOC: ER 07:08
DX: E11.43 Type 2 diabetes mellitus with diabetic autonomic (poly)neuropathy (principal); K31.84 Gastroparesis; I10 Essential (primary) hypertension; I25.10 Atherosclerotic heart disease of native coronary artery without angina pectoris; I25.2 Old myocardial infarction; Z90.49 Acquired absence of other specified parts of digestive tract; Z98.890 Other specified postprocedural states; Z90.89 Acquired absence of other organs
CPT/HCPCS: 36415; 80053; 80307; 81001; 83690; 85025; 96361; 96374; 96375; 96376; 99284; J0780; J1200; J2765; J3010; J7030

== ENCOUNTER 2017-10-12 18:25 | Inpatient (IN) | payer SELFPAY ==
[~2017-10-12] VITALS: Ht 157.5 cm; Wt 57.2 kg
[~2017-10-12 18:25] MED LIST: AMIT10TA PO; ASPI-612 PO; ATOR40TA59 PO; Aspirin PO; CARV25TA2 PO; CARV3.12 PO; CITA20TA6 PO; CITA40TA12 PO; CLOP75TA57 PO; EZET10TA18 PO; HYDR-2758 PO; HYDR-971 PO; INSU100C4 SQ; INSU100I13 SQ; INSU100V8 SQ; LEVO500T59 PO; LIPA1CAP12 PO; LIPA1CAP4 PO; LISI20TA PO; METO-239 PO; METO10SO PO; METO10TA PO; METO10TA81 PO; METR500T PO; OMEP40CA5 PO; ONDA4TAB12 PO; ONDA4TAB7 PO; PANT20TA2 PO; PRAV20TA2 PO; PROM25TA10 PO; TRAM50TA PO; TRAZ-85 PO; TRAZ-86 PO; WARF10TA45 PO; ZOLP10TA PO
[2017-10-12] MEDS ORDERED: fentaNYL PF VIAL 100 MCG/2 ML VIAL IV PRN ×2 (21:00→23:30)
[2017-10-12 21:11] LABS: BILIRUBIN,URINE NEGATIVE (NEG); CLARITY,URINE CLEAR; COLOR,URINE YELLOW; NITRITE,URINE NEGATIVE (NEG); PROTEIN,URINE >=300 mg/dL (NEG-TRACE); UROBILINOGEN,URINE 0.2 mg/dL (0.2 mg/dL)
[2017-10-12 21:14] LABS: BASO % 0 % (0-3); EOS % 1 % (0-3); HEMATOCRIT 30.8 % (36.0-47.0); HEMOGLOBIN 10.4 g/dL (12.0-15.5); LYMPH # 1.2 x10^3/uL (1.0-4.8); LYMPH % 29 % (24-48); MEAN CORPUSCULAR HEMOGLOBIN 28 pg (25-35); MEAN CORPUSCULAR HGB CONC 34 g/dL (31-37); MEAN CORPUSCULAR VOLUME 81 fL (79-100); MONO # 0.4 x10^3/uL (0.0-1.1); MONO % 11 % (0-9); NEUT # 2.5 x10^3uL (1.8-7.7); NEUT % 60 % (31-73); PLATELET COUNT 389 x10^3/uL (140-400); RED BLOOD COUNT 3.78 x10^6/uL (3.50-5.40); RED CELL DISTRIBUTION WIDTH 16.8 % (11.5-14.5); WHITE BLOOD COUNT 4.1 x10^3/uL (4.0-11.0)
[2017-10-12 21:16] LABS: BACTERIA,URINE FEW /HPF (0-FEW); BARBITURATES NEG (NEG); BENZODIAZEPINES NEG (NEG); CANNABINOIDS NEG (NEG); COCAINE NEG (NEG); METHADONE NEG (NEG); OPIATES NEG (NEG); PHENCYCLIDINE NEG (NEG); RBC,URINE 0 /HPF (0-2); SQUAMOUS EPITHELIAL CELL,UR MANY /LPF
[2017-10-12 21:20] LABS: AMPHETAMINE/METHAMPHETAMINE NEG (NEG)
[2017-10-12 21:21] LABS: CALCIUM 8.6 mg/dL (8.5-10.1); CREATININE 0.9 mg/dL (0.6-1.0); GFR 64.1; POTASSIUM 3.7 mmol/L (3.5-5.1)
[2017-10-12 21:28] LABS: ALBUMIN 2.9 g/dL (3.4-5.0); ALBUMIN/GLOBULIN RATIO 0.9 (1.0-1.7); TOTAL BILIRUBIN 0.2 mg/dL (0.2-1.0); TOTAL PROTEIN 6.2 g/dL (6.4-8.2)
[2017-10-12] MEDS ORDERED: PROMETHAZINE IM 25 MG/ML VIAL IM ONE (21:30)
[2017-10-12] MEDS ORDERED: ONDANSETRON PF 4 MG/2 ML VIAL. IV ONE (21:30)
[2017-10-12] MEDS ORDERED: IV NORMAL SALINE 1000ML BAG 1,000 ML IV SCH (21:30)
--- NOTE | 2017-10-12 21:42 | RAD ---
Abdominal and Pelvis CT, Without Contrast: History: Left lower quadrant pain. Comparison: September 30, 2017. Procedure: Axial images are obtained of the abdomen and pelvis, without IV or oral contrast. CT Abdomen without Contrast: Findings: Evaluation of solid organs is limited without contrast. Evaluation of stomach and bowel is limited without oral contrast. There is a percutaneous feeding tube the left which could be a jejunostomy tube. There is a right-sided breast implant. Liver: Normal. Spleen: Normal. Pancreas: Normal. Adrenal Glands: Normal. Kidneys: Normal. There is no free air or free fluid. There is no lymphadenopathy. Impression: Please see CT Pelvis without Contrast. End Impression. CT Pelvis without Contrast: Findings: The urinary bladder appears normal. There is no free fluid. There is no lymphadenopathy. There is no pericolonic inflammation identified. There is a suture line in the right colon. Impression: No acute findings. Stable appearance of the abdomen and pelvis. End impression PQRS Compliance Statement: One or more of the following individualized dose reduction techniques were utilized for this examination: 1. Automated exposure control 2. Adjustment of the mA and/or kV according to patient size 3. Use of iterative reconstruction technique Electronically signed by: Siva Pierson III, MD (10/12/2017 9:38 PM) [facility]
--- NOTE | 2017-10-12 22:17 | EKG ---
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
--- NOTE | 2017-10-12 23:14 | PHYS DOC ---
Past Medical History Past Medical History: CAD, Cancer, Diabetes-Type II, Hypertension, ND, Other Additional Past Medical Histor: PE,BREAST CA,GASTROPARESIS Past Surgical History: Angioplasty, Appendectomy, Cholecystectomy, , Tonsillectomy, Other Additional Past Surgical Histo: Right Masectomy, CARDIAC STENTS,PAC,FEEDING TUBE Alcohol Use: None Drug Use: None Adult General Chief Complaint Chief Complaint: ABDOMINAL PAIN HPI HPI Patient is a 57 year old female who presents with nausea, vomiting, epigastric pain 3 days. Patient states she has chronic gastroparesis and was seen at [place] today. Patient states that she went home because she felt better and then decided to come back here because she started vomiting again because this was the closest hospital. She took Reglan before she came in to the ED tonight. Patient is denies fever, diarrhea, chest pain, shortness of air or headaches, numbness or tingling. Patient rates her pain 9 out of 10 and is sharp. Patient denies the pain radiating anywhere. Patient has no known drug allergies. Review of Systems Review of Systems Constitutional: Denies fever or chills [] Eyes: Denies change in visual acuity, redness, or eye pain [] HENT: Denies nasal congestion or sore throat [] Respiratory: Denies cough or shortness of breath [] Cardiovascular: No additional information not addressed in HPI [] GI: Epigastric abdominal pain, nausea, vomiting, Denies bloody stools or diarrhea [] : Denies dysuria or hematuria [] Musculoskeletal: Denies back pain or joint pain [] Integument: Denies rash or skin lesions [] Neurologic: Denies headache, focal weakness or sensory changes [] All other systems were reviewed and found to be within normal limits, except as documented in this note. Current Medications Current Medications Current Medications Medications (Trade) Dose Ordered Sig/Kali Start Time Stop Time Status Last Admin Dose Admin Fentanyl Citrate (Fentanyl 2ml Vial) 50 mcg PRN Q15MIN PRN 10/12/17 21:00 10/13/17 20:59 10/12/17 21:47 50 MCG Ondansetron HCl (Zofran) 4 mg 1X ONCE 10/12/17 21:30 10/12/17 21:31 DC 10/12/17 21:46 4 MG Promethazine HCl (Phenergan Im) 25 mg 1X ONCE 10/12/17 21:30 10/12/17 21:31 DC 10/12/17 21:30 25 MG Sodium Chloride 1,000 ml @ 1,000 mls/hr Q1H 10/12/17 21:30 10/12/17 22:29 DC 10/12/17 21:47 1,000 MLS/HR Allergies Allergies Allergies Coded Allergies Type Severity Reaction Last Updated Verified No Known Drug Allergies 10/05/17 No Physical Exam Physical Exam Constitutional: Well developed, well nourished, no acute distress, non-toxic appearance. [] HENT: Normocephalic, atraumatic, bilateral external ears normal, oropharynx moist, no oral exudates, nose normal. [] Eyes: PERRLA, EOMI, conjunctiva normal, no discharge. [] Neck: Normal range of motion, no tenderness, supple, no stridor. [] Cardiovascular:Heart rate regular rhythm, no murmur [] Lungs & Thorax: Bilateral breath sounds clear to auscultation [] Abdomen: Bowel sounds normal, soft, Epigastric and Left abdominal tenderness, no masses, no pulsatile masses. [] Skin: Warm, dry, no erythema, no rash. [] Back: No tenderness, no CVA tenderness. [] Extremities: No tenderness, no cyanosis, no clubbing, ROM intact, no edema. [] Neurologic: Alert and oriented X 3, normal motor function, normal sensory function, no focal deficits noted. [] Psychologic: Affect normal, judgement normal, mood normal. [] Current Patient Data Vital Signs Vital Signs Date Time Temp Pulse Resp B/P (MAP) Pulse Ox O2 Delivery O2 Flow Rate FiO2 10/12/17 22:30 90 18 153/74 (100) 99 10/12/17 21:47 Room Air 10/12/17 20:35 98.2 98.2 Lab Values Laboratory Tests Test 10/12/17 20:30 10/12/17 21:00 Urine Collection Type Unknown Urine Color Yellow Urine Clarity Clear Urine pH 6.0 Urine Specific [place] >=1.030 Urine Protein >=300 mg/dL (NEG-TRACE) Urine Glucose (UA) >=1000 mg/dL (NEG) Urine Ketones (Stick) Negative mg/dL (NEG) Urine Blood Negative (NEG) Urine Nitrite Negative (NEG) Urine Bilirubin Negative (NEG) Urine Urobilinogen Dipstick 0.2 mg/dL (0.2 mg/dL) Urine Leukocyte Esterase Negative (NEG) Urine RBC 0 /HPF (0-2) Urine WBC 11-20 /HPF (0-4) Urine Squamous Epithelial Cells Many /LPF Urine Bacteria Few /HPF (0-FEW) Urine Mucus Marked /LPF Urine Opiates Screen Neg (NEG) Urine Methadone Screen Neg (NEG) Urine Barbiturates Neg (NEG) Urine Phencyclidine Screen Neg (NEG) Urine Amphetamine/Methamphetamine Neg (NEG) Urine Benzodiazepines Screen Neg (NEG) Urine Cocaine Screen Neg (NEG) Urine Cannabinoids Screen Neg (NEG) Urine Ethyl Alcohol Neg (NEG) White Blood Count 4.1 x10^3/uL (4.0-11.0) Red Blood Count 3.78 x10^6/uL (3.50-5.40) Hemoglobin 10.4 g/dL (12.0-15.5) L Hematocrit 30.8 % (36.0-47.0) L Mean Corpuscular Volume 81 fL (79-100) Mean Corpuscular Hemoglobin 28 pg (25-35) Mean Corpuscular Hemoglobin Concent 34 g/dL (31-37) Red Cell Distribution Width 16.8 % (11.5-14.5) H Platelet Count 389 x10^3/uL (140-400) Neutrophils (%) (Auto) 60 % (31-73) Lymphocytes (%) (Auto) 29 % (24-48) Monocytes (%) (Auto) 11 % (0-9) H Eosinophils (%) (Auto) 1 % (0-3) Basophils (%) (Auto) 0 % (0-3) Neutrophils # (Auto) 2.5 x10^3uL (1.8-7.7) Lymphocytes # (Auto) 1.2 x10^3/uL (1.0-4.8) Monocytes # (Auto) 0.4 x10^3/uL (0.0-1.1) Eosinophils # (Auto) 0.0 x10^3/uL (0.0-0.7) Basophils # (Auto) 0.0 x10^3/uL (0.0-0.2) Sodium Level 132 mmol/L (136-145) L Potassium Level 3.7 mmol/L (3.5-5.1) Chloride Level 99 mmol/L (98-107) Carbon Dioxide Level 26 mmol/L (21-32) Anion Gap 7 (6-14) Blood Urea Nitrogen 15 mg/dL (7-20) Creatinine 0.9 mg/dL (0.6-1.0) Estimated GFR (Cockcroft-Gault) 64.1 BUN/Creatinine Ratio 17 (6-20) Glucose Level 288 mg/dL (70-99) H Lactic Acid Level 2.3 mmol/L (0.4-2.0) H Calcium Level 8.6 mg/dL (8.5-10.1) Total Bilirubin 0.2 mg/dL (0.2-1.0) Aspartate Amino Transferase (AST) 10 U/L (15-37) L Alanine Aminotransferase (ALT) 14 U/L (14-59) Alkaline Phosphatase 110 U/L (46-116) Total Protein 6.2 g/dL (6.4-8.2) L Albumin 2.9 g/dL (3.4-5.0) L Albumin/Globulin Ratio 0.9 (1.0-1.7) L Lipase 534 U/L (73-393) H Ethyl Alcohol Level < 10 mg/dL (0-10) Laboratory Tests 10/12/17 21:00 Laboratory Tests 10/12/17 21:00 EKG EKG Sinus rhythm, No STEMI[] Interpretation Time: [address] Dubose Radiology/Procedures Radiology/Procedures CT Abdomen and Pelvis[] Impressions: [facility] [address] [place] [address] IMAGING REPORT Signed PATIENT: MAXINE MILLER ACCOUNT: [id number] : 1960 LOCATION: ER AGE: 57 SEX: F EXAM STATUS: REG ER ORD. PHYSICIAN: WILLIE MIMS APRN REASON: Abdominal pain PROCEDURE: CT ABDOMEN PELVIS WO CONTRAST Abdominal and Pelvis CT, Without Contrast: History: Left lower quadrant pain. Comparison: September 30, 2017. Procedure: Axial images are obtained of the abdomen and pelvis, without IV or oral contrast. CT Abdomen without Contrast: Findings: Evaluation of solid organs is limited without contrast. Evaluation of stomach and bowel is limited without oral contrast. There is a percutaneous feeding tube the left which could be a jejunostomy tube. There is a right-sided breast implant. Liver: Normal. Spleen: Normal. Pancreas: Normal. Adrenal Glands: Normal. Kidneys: Normal. There is no free air or free fluid. There is no lymphadenopathy. Impression: Please see CT Pelvis without Contrast. End Impression. CT Pelvis without Contrast: Findings: The urinary bladder appears normal. There is no free fluid. There is no lymphadenopathy. There is no pericolonic inflammation identified. There is a suture line in the right colon. Impression: No acute findings. Stable appearance of the abdomen and pelvis. End impression PQRS Compliance Statement: One or more of the following individualized dose reduction techniques were utilized for this examination: 1. Automated exposure control 2. Adjustment of the mA and/or kV according to patient size 3. Use of iterative reconstruction technique Electronically signed by: Анна Donahue III, MD (10/12/2017 9:38 PM) [facility] DICTATED and SIGNED BY: АННА DONAHUE III, MD DATE: 10/12/172123 Course & Med Decision Making Course & Med Decision Making Patient is staying here today in the ED for nausea, vomiting, and epigastric abdominal pain. Upon examination patient has epigastric and left upper abdominal tenderness. Patient has a Port-A-Cath in her right chest in place. Patient also has a J-tube that is without infection. Patient is alert and oriented. Patient denies diarrhea, fevers, shortness of air, chest pain, numbness or tingling. Patient denies urinary symptoms. Patient had a bowel movement today of which she states was normal for her. Patient states she is not drinking any alcohol. Does not do drugs. Patient states she tried drinking some water right before she came into the ED and it came back up. Patient states she took Reglan at home before she came to the ED. Patient is given Zofran, Phenergan, and a bolus of fluid in the ED. Patient's CT scan shows no acute findings. Patient lipase level is 534 which is an increase from October 05 at 188. Patient has a history of chronic pancreatitis. Patient to be admitted by Dr. Bello to the hospital for continuation of care. Patient agrees with this plan of care. [] Dragon Disclaimer Dragon Disclaimer This electronic medical record was generated, in whole or in part, using a voice recognition dictation system. Departure Departure Impression: Primary Impression: Chronic pancreatitis Disposition: 09 ADMITTED INPATIENT Admitting Physician: Cholo Shane Condition: STABLE Referrals: NO PCP (PCP) Problem Qualifiers Primary Impression: Chronic pancreatitis Pancreatitis type: unspecified pancreatitis type Qualified Codes: K86.1 - Other chronic pancreatitis WILLIE MIMS APRN Oct 12, 2017 23:14
[2017-10-12] MEDS ORDERED: ONDANSETRON PF 4 MG/2 ML VIAL. IV PRN (23:30)
[2017-10-12 23:55] VITALS: BP 128/77
[2017-10-13] VITALS (8 sets, daily range): BP systolic 131–190; BP diastolic 71–102
[2017-10-13] MEDS: IV NORMAL SALINE 1000ML BAG 1,000 ML IV SCH ×4 (00:56→21:34)
[2017-10-13] MEDS ORDERED: DILT240C2 PO (08:08)
[2017-10-13] MEDS ORDERED: DIPH25CA58 PO (08:08)
[2017-10-13] MEDS ORDERED: AMIT10TA PO (08:08)
[2017-10-13] MEDS ORDERED: LACT1CAP19 PO (08:08)
[2017-10-13] MEDS ORDERED: INSU100I13 SQ (08:08)
[2017-10-13] MEDS ORDERED: DEXTROSE 50% 25 GM / 50ML DISP.SYRIN. IV PRN (08:15)
[2017-10-13] MEDS ORDERED: LABETALOL 20 MG/4 ML DISP.SYRIN. IVP PRN (08:30)
--- NOTE | 2017-10-13 11:57 | HP ---
ADMIT DATE: 10/12/2017 CHIEF COMPLAINT: Pancreatitis with abdominal pain. HISTORY OF PRESENT ILLNESS: The patient is a pleasant 57-year-old female who has a J-tube. She has chronic pancreatitis and severe gastroparesis with multiple medical issues. Basically, she presented to the ER with abdominal pain. While in the ER, we noted that she had an elevation of her lipase to 534. We have admitted the patient for consultation with GI for IV pain meds and fluids. PAST MEDICAL HISTORY: CAD, breast cancer, diabetes, hypertension, appendectomy, J-tube, pulmonary embolism, cholecystectomy, , tonsillectomy, right mastectomy and cardiac stents. ALLERGIES: None. FAMILY HISTORY: Diabetes. SOCIAL HISTORY: She does not drink, smoke or take drugs. MEDICATIONS: Reviewed, please refer to the MRAD. REVIEW OF SYSTEMS: GENERAL: No history of weight change, weakness or fevers. SKIN: No bruising, hair changes or rashes. EYES: No blurred, double or loss of vision. NOSE AND THROAT: No history of nosebleeds, hoarseness or sore throat. HEART: No history of palpitations, chest pain or shortness of breath on exertion. LUNGS: Denies cough, hemoptysis, wheezing or shortness of breath. GASTROINTESTINAL: The patient complains of abdominal pain. GENITOURINARY: No history of frequency, urgency, hesitancy or nocturia. NEUROLOGIC: Denies history of numbness, tingling, tremor or weakness. PSYCHIATRIC: No history of panic, anxiety or depression. ENDOCRINE: No history of heat or cold intolerance, polyuria or polydipsia. EXTREMITIES: Denies muscle weakness, joint pain, pain on walking or stiffness. PHYSICAL EXAMINATION: VITAL SIGNS: Temperature afebrile, pulse 92, respirations 18 and blood pressure 133/90. GENERAL: She is alert, cooperative and flat affect, but pleasant. HEART: Normal S1 and S2. LUNGS: Clear. ABDOMEN: Soft. There is a J-tube in place. ENDOCRINE: No thyromegaly. LYMPHATICS: No cervical nodes. HEMATOPOIETIC: No bruising. LABORATORY DATA: Hemoglobin is 10.4. Sodium is 132 and glucose 288. Lipase 534. ASSESSMENT AND PLAN: Dzinb-ac-tklkkha pancreatitis in a middle-aged female with the above noted comorbidities, who also has an incidental finding of hyponatremia and anemia and hyperglycemia. The patient has been admitted. We will consult Gastrointestinal. We will try to resume her home meds, IV hydration and/or PPN. Daily lipase levels. P.r.n. narcotics. PROGNOSIS: Guarded. TOMER NAVA DO DR: BRISEIDA/martha JOB#: [id number] / [id number]
[2017-10-13] MEDS: MORPHINE SULFATE 2 MG/ML VIAL. IV PRN ×3 (13:10→21:35)
--- NOTE | 2017-10-13 13:48 | PDOC2 ---
GI CONSULT Reason For Consult: Possible PEG tube obstruction HPI: HPI: 57 y/o female who we have seen many times. She does not have a PEG tube. H/o gastroparesis w/ recurrent n/v and abd pain. S/p G tube, J tube, and pyloroplasty with Dr. Patel in 06/2017. The G tube fell out about a month ago. She was tolerating food PO but got sick w/ n/v ~3 days ago. The last thing she ate was soup. She says the J tube has continued to function for feeds without issue. She has chronic periumbilical pain but has been out of pain meds x 2 weeks "because no one would give them to me." Feels better today - denies n/v and says pain is better. No diarrhea, constipation, or bleeding. RN concerned w/ drainage around tube so wound care was consulted. H/o GERD, "chronic pancreatitis" (though no pancreatic calcifications noted on many past CTs), s/p cholecystectomy. In the past on PPI, Reglan, and pancreatic enzymes - she tells me she's taking Reglan but can't recall the others. EGD 08/2010: hiatal hernia, few linear gastric erosions, normal duodenum. Colonoscopy 10/2013: sigmoid diverticulosis, external hemorrhoids. GES 08/2014: T1/2 3 hrs 20 min. SBS 2014: no obstruction. Lipase [address] A/P yesterday w/o acute finding. Two other recent CTs w/ dilated loop of small bowel, also noted uterine mass (?fibroid). H/o DM - last A1c in 08/2017 was 6. She does not seem to have a clear understanding or memory of her chronic medical problems. PMH: PMH: per HPI plus CAD w/ stents, CT, CVA, PE, HTN, HLD, DM, UTI, depression, breast cancer s/p right mastectomy/breast implant, appendectomy, port placement FH: Family History: No pertinent hx Social History: ALCOHOL: rare Drugs: None ROS: GEN: Denies fevers, chills, sweats HEENT: Denies blurred vision, sore throat CV: Denies chest pain RESP: Denies shortness of air, cough GI: Per HPI : Denies hematuria, dysuria ENDO: Denies weight changes NEURO: Denies confusion, dizziness MSK: Denies weakness, joint pain/swelling SKIN: Denies jaundice, pruritus Vitals: Vitals: Vital Signs Date Time Temp Pulse Resp B/P (MAP) Pulse Ox O2 Delivery O2 Flow Rate FiO2 10/13/17 13:10 18 100 Room Air 10/13/17 11:00 98.2 96 163/86 (111) 98.2 Labs: Labs: Laboratory Tests Test 10/12/17 20:30 10/12/17 21:00 10/13/17 08:09 10/13/17 11:40 Urine Collection Type Unknown Urine Color Yellow Urine Clarity Clear Urine pH 6.0 Urine Specific [place] >=1.030 Urine Protein >=300 mg/dL (NEG-TRACE) Urine Glucose (UA) >=1000 mg/dL (NEG) Urine Ketones (Stick) Negative mg/dL (NEG) Urine Blood Negative (NEG) Urine Nitrite Negative (NEG) Urine Bilirubin Negative (NEG) Urine Urobilinogen Dipstick 0.2 mg/dL (0.2 mg/dL) Urine Leukocyte Esterase Negative (NEG) Urine RBC 0 /HPF (0-2) Urine WBC 11-20 /HPF (0-4) Urine Squamous Epithelial Cells Many /LPF Urine Bacteria Few /HPF (0-FEW) Urine Mucus Marked /LPF Urine Opiates Screen Neg (NEG) Urine Methadone Screen Neg (NEG) Urine Barbiturates Neg (NEG) Urine Phencyclidine Screen Neg (NEG) Urine Amphetamine/Methamphetamine Neg (NEG) Urine Benzodiazepines Screen Neg (NEG) Urine Cocaine Screen Neg (NEG) Urine Cannabinoids Screen Neg (NEG) Urine Ethyl Alcohol Neg (NEG) White Blood Count 4.1 x10^3/uL (4.0-11.0) Red Blood Count 3.78 x10^6/uL (3.50-5.40) Hemoglobin 10.4 g/dL (12.0-15.5) Hematocrit 30.8 % (36.0-47.0) Mean Corpuscular Volume 81 fL (79-100) Mean Corpuscular Hemoglobin 28 pg (25-35) Mean Corpuscular Hemoglobin Concent 34 g/dL (31-37) Red Cell Distribution Width 16.8 % (11.5-14.5) Platelet Count 389 x10^3/uL (140-400) Neutrophils (%) (Auto) 60 % (31-73) Lymphocytes (%) (Auto) 29 % (24-48) Monocytes (%) (Auto) 11 % (0-9) Eosinophils (%) (Auto) 1 % (0-3) Basophils (%) (Auto) 0 % (0-3) Neutrophils # (Auto) 2.5 x10^3uL (1.8-7.7) Lymphocytes # (Auto) 1.2 x10^3/uL (1.0-4.8) Monocytes # (Auto) 0.4 x10^3/uL (0.0-1.1) Eosinophils # (Auto) 0.0 x10^3/uL (0.0-0.7) Basophils # (Auto) 0.0 x10^3/uL (0.0-0.2) Sodium Level 132 mmol/L (136-145) Potassium Level 3.7 mmol/L (3.5-5.1) Chloride Level 99 mmol/L (98-107) Carbon Dioxide Level 26 mmol/L (21-32) Anion Gap 7 (6-14) Blood Urea Nitrogen 15 mg/dL (7-20) Creatinine 0.9 mg/dL (0.6-1.0) Estimated GFR (Cockcroft-Gault) 64.1 BUN/Creatinine Ratio 17 (6-20) Glucose Level 288 mg/dL (70-99) Lactic Acid Level 2.3 mmol/L (0.4-2.0) 1.4 mmol/L (0.4-2.0) Calcium Level 8.6 mg/dL (8.5-10.1) Total Bilirubin 0.2 mg/dL (0.2-1.0) Aspartate Amino Transf (AST/SGOT) 10 U/L (15-37) Alanine Aminotransferase (ALT/SGPT) 14 U/L (14-59) Alkaline Phosphatase 110 U/L (46-116) Total Protein 6.2 g/dL (6.4-8.2) Albumin 2.9 g/dL (3.4-5.0) Albumin/Globulin Ratio 0.9 (1.0-1.7) Lipase 534 U/L (73-393) Ethyl Alcohol Level < 10 mg/dL (0-10) Glucose (Fingerstick) 197 mg/dL (70-99) Test 10/13/17 12:45 Glucose (Fingerstick) 141 mg/dL (70-99) Allergies: Coded Allergies: No Known Drug Allergies (Unverified , 10/05/17) Medications: Current Medications Medications (Trade) Dose Ordered Sig/Kali Route PRN Reason Start Time Stop Time Status Last Admin Dose Admin Fentanyl Citrate (Fentanyl 2ml Vial) 50 mcg PRN Q15MIN PRN IV PAIN GREATER THAN 3/10 10/12/17 21:00 10/13/17 00:00 DC 10/12/17 21:47 Sodium Chloride 1,000 ml @ 1,000 mls/hr Q1H IV 10/12/17 21:30 10/12/17 22:29 DC 10/12/17 21:47 Ondansetron HCl (Zofran) 4 mg 1X ONCE IV 10/12/17 21:30 10/12/17 21:31 DC 10/12/17 21:46 Promethazine HCl (Phenergan Im) 25 mg 1X ONCE IM 10/12/17 21:30 10/12/17 21:31 DC 10/12/17 21:30 Fentanyl Citrate (Fentanyl 2ml Vial) 50 mcg PRN Q3HRS PRN IV SEVERE PAIN 10/12/17 23:30 10/13/17 10:00 DC 10/13/17 00:57 Sodium Chloride 1,000 ml @ 100 mls/hr Q10H IV 10/12/17 23:30 10/13/17 23:29 10/13/17 09:30 Labetalol HCl (Normodyne Iv Push) 20 mg PRN Q6HRS PRN IVP HYPERTENSION, SEE COMMENTS 10/13/17 08:30 10/13/17 08:34 Morphine Sulfate (Morphine Sulfate) 2 mg PRN Q2HR PRN IV PAIN 10/13/17 12:00 10/13/17 13:10 PE: GEN: NAD HEENT: Atraumatic, PERRL LUNGS: CTAB HEART: tachycardic +port ABD: BS+, soft, non-distended, J tube - surrounding gauze dry, previous G tube site - healed, does not seem tender EXTREMITY: No edema SKIN: No rashes, no jaundice NEURO/PSYCH: A & O 3 A/P: A/P: Chronic abd pain and n/v - seems on some sort of chronic narcotic at home Gastroparesis w/ J tube (G tube fell out) - on Reglan Mildly elevated lipase - history of same, no evidence of chronic pancreatis on imaging GERD - previously on PPI CRC screen - UTD HTN, DM, chronic anemia -- Consider IR or surgery eval if issues w/ J tube, but seems okay to try using. Resume PPI and Reglan, seems also okay to try clear liquids. Unclear significance of lipase. Defer pain control, HTN, and DM to primary. MAXINE JEONG Oct 13, 2017 13:48
[2017-10-13] MEDS: LANSOPRAZOLE 30 MG TAB.RAP.DR FT SCH ×2 (16:30→17:31)
[2017-10-13] MEDS: METOCLOPRAMIDE HCL 10 MG/2 ML VIAL. IV SCH ×2 (17:28→21:35)
[2017-10-14 03:00] VITALS: BP 159/78
[2017-10-14] MEDS: IV NORMAL SALINE 1000ML BAG 1,000 ML IV SCH ×2 (03:24→14:40)
[2017-10-14] MEDS: MORPHINE SULFATE 2 MG/ML VIAL. IV PRN ×6 (03:47→20:42)
[2017-10-14] MEDS: LANSOPRAZOLE 30 MG TAB.RAP.DR FT SCH (05:45)
[2017-10-14] MEDS: METOCLOPRAMIDE HCL 10 MG/2 ML VIAL. IV SCH ×4 (05:45→20:41)
[2017-10-14 06:16] LABS: BASO % 1 % (0-3); CALCIUM 7.8 mg/dL (8.5-10.1); CREATININE 0.6 mg/dL (0.6-1.0); EOS # 0.1 x10^3/uL (0.0-0.7); EOS % 1 % (0-3); GFR 102.3; HEMATOCRIT 26.4 % (36.0-47.0); LYMPH # 1.5 x10^3/uL (1.0-4.8); LYMPH % 31 % (24-48); MEAN CORPUSCULAR HEMOGLOBIN 28 pg (25-35); MEAN CORPUSCULAR HGB CONC 34 g/dL (31-37); MEAN CORPUSCULAR VOLUME 81 fL (79-100); MONO # 0.5 x10^3/uL (0.0-1.1); MONO % 10 % (0-9); NEUT # 2.8 x10^3uL (1.8-7.7); NEUT % 57 % (31-73); PLATELET COUNT 324 x10^3/uL (140-400); RED BLOOD COUNT 3.24 x10^6/uL (3.50-5.40); RED CELL DISTRIBUTION WIDTH 16.7 % (11.5-14.5); WHITE BLOOD COUNT 4.8 x10^3/uL (4.0-11.0)
[2017-10-14 07:00] VITALS: BP 180/92
[2017-10-14 11:00] VITALS: BP 176/94
--- NOTE | 2017-10-14 11:06 | PDOC ---
PROGRESS NOTES Chief Complaint Chief Complaint Chronic Pancreatitis CAD, breast cancer diabetes hypertension appendectomy J-tube pulmonary embolism cholecystectomy tonsillectomy right mastectomy cardiac stents. History of Present Illness History of Present Illness Pt seen and examined Resting in bed in mild distress Said that she tried to eat some food earlier and "it didn't go well" DW RN Vitals Vitals Vital Signs Date Time Temp Pulse Resp B/P (MAP) Pulse Ox O2 Delivery O2 Flow Rate FiO2 10/14/17 09:00 100 Room Air 10/14/17 07:00 98.2 93 18 180/92 (121) 98.2 Physical Exam General: Alert, Oriented X3 Heart: Regular rate, Normal S1 Lungs: Clear Abdomen: Soft, Other Extremities: No clubbing, No cyanosis Skin: No rashes, No breakdown Labs LABS Laboratory Tests Test 10/13/17 11:40 10/13/17 12:45 10/13/17 14:20 10/13/17 16:23 Lactic Acid Level 1.4 mmol/L (0.4-2.0) Glucose (Fingerstick) 141 mg/dL (70-99) 108 mg/dL (70-99) Lipase 273 U/L (73-393) Test 10/13/17 21:11 10/14/17 05:50 10/14/17 07:36 Glucose (Fingerstick) 225 mg/dL (70-99) 136 mg/dL (70-99) White Blood Count 4.8 x10^3/uL (4.0-11.0) Red Blood Count 3.24 x10^6/uL (3.50-5.40) Hemoglobin 9.0 g/dL (12.0-15.5) Hematocrit 26.4 % (36.0-47.0) Mean Corpuscular Volume 81 fL (79-100) Mean Corpuscular Hemoglobin 28 pg (25-35) Mean Corpuscular Hemoglobin Concent 34 g/dL (31-37) Red Cell Distribution Width 16.7 % (11.5-14.5) Platelet Count 324 x10^3/uL (140-400) Neutrophils (%) (Auto) 57 % (31-73) Lymphocytes (%) (Auto) 31 % (24-48) Monocytes (%) (Auto) 10 % (0-9) Eosinophils (%) (Auto) 1 % (0-3) Basophils (%) (Auto) 1 % (0-3) Neutrophils # (Auto) 2.8 x10^3uL (1.8-7.7) Lymphocytes # (Auto) 1.5 x10^3/uL (1.0-4.8) Monocytes # (Auto) 0.5 x10^3/uL (0.0-1.1) Eosinophils # (Auto) 0.1 x10^3/uL (0.0-0.7) Basophils # (Auto) 0.0 x10^3/uL (0.0-0.2) Sodium Level 137 mmol/L (136-145) Potassium Level 3.0 mmol/L (3.5-5.1) Chloride Level 104 mmol/L (98-107) Carbon Dioxide Level 27 mmol/L (21-32) Anion Gap 6 (6-14) Blood Urea Nitrogen 4 mg/dL (7-20) Creatinine 0.6 mg/dL (0.6-1.0) Estimated GFR (Cockcroft-Gault) 102.3 Glucose Level 140 mg/dL (70-99) Calcium Level 7.8 mg/dL (8.5-10.1) Review of Systems Review of Systems CO abd pain CO nausea denies vomiting Assessment and Plan Assessmemt and Plan Chronic Pancreatitis CAD, breast cancer diabetes hypertension appendectomy J-tube pulmonary embolism cholecystectomy tonsillectomy right mastectomy cardiac stents. Plan: Bowel rest daily lipase IVF Home meds Labs Continue to f/u w/GI Comment Review of Relevant I have reviewed the following items yanet (where applicable) has been applied. Labs Laboratory Tests Test 10/12/17 20:30 10/12/17 21:00 10/13/17 08:09 10/13/17 11:40 Urine Collection Type Unknown Urine Color Yellow Urine Clarity Clear Urine pH 6.0 Urine Specific [place] >=1.030 Urine Protein >=300 mg/dL (NEG-TRACE) Urine Glucose (UA) >=1000 mg/dL (NEG) Urine Ketones (Stick) Negative mg/dL (NEG) Urine Blood Negative (NEG) Urine Nitrite Negative (NEG) Urine Bilirubin Negative (NEG) Urine Urobilinogen Dipstick 0.2 mg/dL (0.2 mg/dL) Urine Leukocyte Esterase Negative (NEG) Urine RBC 0 /HPF (0-2) Urine WBC 11-20 /HPF (0-4) Urine Squamous Epithelial Cells Many /LPF Urine Bacteria Few /HPF (0-FEW) Urine Mucus Marked /LPF Urine Opiates Screen Neg (NEG) Urine Methadone Screen Neg (NEG) Urine Barbiturates Neg (NEG) Urine Phencyclidine Screen Neg (NEG) Urine Amphetamine/Methamphetamine Neg (NEG) Urine Benzodiazepines Screen Neg (NEG) Urine Cocaine Screen Neg (NEG) Urine Cannabinoids Screen Neg (NEG) Urine Ethyl Alcohol Neg (NEG) White Blood Count 4.1 x10^3/uL (4.0-11.0) Red Blood Count 3.78 x10^6/uL (3.50-5.40) Hemoglobin 10.4 g/dL (12.0-15.5) Hematocrit 30.8 % (36.0-47.0) Mean Corpuscular Volume 81 fL (79-100) Mean Corpuscular Hemoglobin 28 pg (25-35) Mean Corpuscular Hemoglobin Concent 34 g/dL (31-37) Red Cell Distribution Width 16.8 % (11.5-14.5) Platelet Count 389 x10^3/uL (140-400) Neutrophils (%) (Auto) 60 % (31-73) Lymphocytes (%) (Auto) 29 % (24-48) Monocytes (%) (Auto) 11 % (0-9) Eosinophils (%) (Auto) 1 % (0-3) Basophils (%) (Auto) 0 % (0-3) Neutrophils # (Auto) 2.5 x10^3uL (1.8-7.7) Lymphocytes # (Auto) 1.2 x10^3/uL (1.0-4.8) Monocytes # (Auto) 0.4 x10^3/uL (0.0-1.1) Eosinophils # (Auto) 0.0 x10^3/uL (0.0-0.7) Basophils # (Auto) 0.0 x10^3/uL (0.0-0.2) Sodium Level 132 mmol/L (136-145) Potassium Level 3.7 mmol/L (3.5-5.1) Chloride Level 99 mmol/L (98-107) Carbon Dioxide Level 26 mmol/L (21-32) Anion Gap 7 (6-14) Blood Urea Nitrogen 15 mg/dL (7-20) Creatinine 0.9 mg/dL (0.6-1.0) Estimated GFR (Cockcroft-Gault) 64.1 BUN/Creatinine Ratio 17 (6-20) Glucose Level 288 mg/dL (70-99) Lactic Acid Level 2.3 mmol/L (0.4-2.0) 1.4 mmol/L (0.4-2.0) Calcium Level 8.6 mg/dL (8.5-10.1) Total Bilirubin 0.2 mg/dL (0.2-1.0) Aspartate Amino Transf (AST/SGOT) 10 U/L (15-37) Alanine Aminotransferase (ALT/SGPT) 14 U/L (14-59) Alkaline Phosphatase 110 U/L (46-116) Total Protein 6.2 g/dL (6.4-8.2) Albumin 2.9 g/dL (3.4-5.0) Albumin/Globulin Ratio 0.9 (1.0-1.7) Lipase 534 U/L (73-393) Ethyl Alcohol Level < 10 mg/dL (0-10) Glucose (Fingerstick) 197 mg/dL (70-99) Test 10/13/17 12:45 10/13/17 14:20 10/13/17 16:23 10/13/17 21:11 Glucose (Fingerstick) 141 mg/dL (70-99) 108 mg/dL (70-99) 225 mg/dL (70-99) Lipase 273 U/L (73-393) Test 10/14/17 05:50 10/14/17 07:36 White Blood Count 4.8 x10^3/uL (4.0-11.0) Red Blood Count 3.24 x10^6/uL (3.50-5.40) Hemoglobin 9.0 g/dL (12.0-15.5) Hematocrit 26.4 % (36.0-47.0) Mean Corpuscular Volume 81 fL (79-100) Mean Corpuscular Hemoglobin 28 pg (25-35) Mean Corpuscular Hemoglobin Concent 34 g/dL (31-37) Red Cell Distribution Width 16.7 % (11.5-14.5) Platelet Count 324 x10^3/uL (140-400) Neutrophils (%) (Auto) 57 % (31-73) Lymphocytes (%) (Auto) 31 % (24-48) Monocytes (%) (Auto) 10 % (0-9) Eosinophils (%) (Auto) 1 % (0-3) Basophils (%) (Auto) 1 % (0-3) Neutrophils # (Auto) 2.8 x10^3uL (1.8-7.7) Lymphocytes # (Auto) 1.5 x10^3/uL (1.0-4.8) Monocytes # (Auto) 0.5 x10^3/uL (0.0-1.1) Eosinophils # (Auto) 0.1 x10^3/uL (0.0-0.7) Basophils # (Auto) 0.0 x10^3/uL (0.0-0.2) Sodium Level 137 mmol/L (136-145) Potassium Level 3.0 mmol/L (3.5-5.1) Chloride Level 104 mmol/L (98-107) Carbon Dioxide Level 27 mmol/L (21-32) Anion Gap 6 (6-14) Blood Urea Nitrogen 4 mg/dL (7-20) Creatinine 0.6 mg/dL (0.6-1.0) Estimated GFR (Cockcroft-Gault) 102.3 Glucose Level 140 mg/dL (70-99) Calcium Level 7.8 mg/dL (8.5-10.1) Glucose (Fingerstick) 136 mg/dL (70-99) Laboratory Tests Test 10/13/17 11:40 10/13/17 12:45 10/13/17 14:20 10/13/17 16:23 Lactic Acid Level 1.4 mmol/L (0.4-2.0) Glucose (Fingerstick) 141 mg/dL (70-99) 108 mg/dL (70-99) Lipase 273 U/L (73-393) Test 10/13/17 21:11 10/14/17 05:50 10/14/17 07:36 Glucose (Fingerstick) 225 mg/dL (70-99) 136 mg/dL (70-99) White Blood Count 4.8 x10^3/uL (4.0-11.0) Red Blood Count 3.24 x10^6/uL (3.50-5.40) Hemoglobin 9.0 g/dL (12.0-15.5) Hematocrit 26.4 % (36.0-47.0) Mean Corpuscular Volume 81 fL (79-100) Mean Corpuscular Hemoglobin 28 pg (25-35) Mean Corpuscular Hemoglobin Concent 34 g/dL (31-37) Red Cell Distribution Width 16.7 % (11.5-14.5) Platelet Count 324 x10^3/uL (140-400) Neutrophils (%) (Auto) 57 % (31-73) Lymphocytes (%) (Auto) 31 % (24-48) Monocytes (%) (Auto) 10 % (0-9) Eosinophils (%) (Auto) 1 % (0-3) Basophils (%) (Auto) 1 % (0-3) Neutrophils # (Auto) 2.8 x10^3uL (1.8-7.7) Lymphocytes # (Auto) 1.5 x10^3/uL (1.0-4.8) Monocytes # (Auto) 0.5 x10^3/uL (0.0-1.1) Eosinophils # (Auto) 0.1 x10^3/uL (0.0-0.7) Basophils # (Auto) 0.0 x10^3/uL (0.0-0.2) Sodium Level 137 mmol/L (136-145) Potassium Level 3.0 mmol/L (3.5-5.1) Chloride Level 104 mmol/L (98-107) Carbon Dioxide Level 27 mmol/L (21-32) Anion Gap 6 (6-14) Blood Urea Nitrogen 4 mg/dL (7-20) Creatinine 0.6 mg/dL (0.6-1.0) Estimated GFR (Cockcroft-Gault) 102.3 Glucose Level 140 mg/dL (70-99) Calcium Level 7.8 mg/dL (8.5-10.1) Microbiology 10/12/17 Urine Culture - Final, Complete 10/12/17 Urine Culture Result 1 (OREN) - Final, Complete Medications Current Medications Fentanyl Citrate (Fentanyl 2ml Vial) 50 mcg PRN Q15MIN PRN IV PAIN GREATER THAN 3/10 Last administered on 10/12/17at 21:47; Start 10/12/17 at 21:00; Stop at 00:00; Status DC Sodium Chloride 1,000 ml @ 1,000 mls/hr Q1H IV Last administered on 10/12/17at 21:47; Start 10/12/17 at 21:30; Stop 10/12/17 at 22:29; Status DC Ondansetron HCl (Zofran) 4 mg 1X ONCE IV Last administered on 10/12/17at 21:46 ; Start 10/12/17 at 21:30; Stop 10/12/17 at 21:31; Status DC Promethazine HCl (Phenergan Im) 25 mg 1X ONCE IM Last administered on at 21:30; Start 10/12/17 at 21:30; Stop 10/12/17 at 21:31; Status DC Ondansetron HCl (Zofran) 4 mg PRN Q8HRS PRN IV NAUSEA/VOMITING 1ST CHOICE; Start 10/12/17 at 23:30; Stop 10/13/17 at 23:29; Status DC Fentanyl Citrate (Fentanyl 2ml Vial) 50 mcg PRN Q3HRS PRN IV SEVERE PAIN Last administered on 10/13/17at 00:57; Start 10/12/17 at 23:30; Stop 10/13/17 at 10:00 ; Status DC Sodium Chloride 1,000 ml @ 100 mls/hr Q10H IV Last administered on 10/13/17at 21:34; Start 10/12/17 at 23:30; Stop 10/13/17 at 23:29; Status DC Dextrose (Dextrose 50%-Water Syringe) 12.5 gm PRN Q15MIN PRN IV SEE COMMENTS; Start 10/13/17 at 08:15 Labetalol HCl (Normodyne Iv Push) 20 mg PRN Q6HRS PRN IVP HYPERTENSION, SEE COMMENTS Last administered on 10/13/17at 08:34; Start 10/13/17 at 08:30 Sodium Chloride 1,000 ml @ 75 mls/hr [id number] IV Last administered on at 03:24; Start 10/13/17 at 12:00 Morphine Sulfate (Morphine Sulfate) 2 mg PRN Q2HR PRN IV PAIN Last administered on 10/14/17at 09:00; Start 10/13/17 at 12:00 Lansoprazole (Prevacid) 30 mg DAILYAC FT Last administered on 10/14/17at 05:45; Start 10/13/17 at 16:30 Metoclopramide HCl (Reglan Vial) 10 mg QIDACHS IV Last administered on at 05:45; Start 10/13/17 at 16:30 Active Scripts Active Reglan (Metoclopramide Hcl) 10 Mg Tablet 10 Mg PO QIDACHS PRN Zofran (Ondansetron Hcl) 4 Mg Tablet 1 Tab PO Q6HRS PRN Ambien (Zolpidem Tartrate) 10 Mg Tablet 1 Tab PO QHS Prinivil (Lisinopril) 20 Mg Tablet 20 Mg PO DAILY Plavix (Clopidogrel Bisulfate) 75 Mg Tablet 75 Mg PO [id number] Reported Amitriptyline Hcl 10 Mg Tablet 2 Tab PO QHS Cardizem Cd (Diltiazem Hcl) 240 Mg Cap.er.24h 0.5 Cap PO DAILY Benadryl (Diphenhydramine Hcl) 25 Mg Capsule 25 Mg PO Q6HRS PRN Culturelle (Lactobacillus Rhamnosus Gg) 1 Each Cap.sprink 1 Each PO DAILY Lantus Solostar (Insulin Glargine,Hum.rec.anlog) 100 Unit/1 Ml Insuln.pen 25 Unit SQ QHS Hydrocodone-Apap 5-325 (Hydrocodone Bit/Acetaminophen) 1 Each Tablet 1 Tab PO PRN Q8HRS PRN Creon Dr 12,000 Units Capsule (Lipase/Protease/Amylase) 1 Each Capsule.dr 1 Each PO TID Citalopram Hbr (Citalopram Hydrobromide) 20 Mg Tablet 1 Tab PO DAILY Carvedilol 25 Mg Tablet 1 Tab PO BID Atorvastatin Calcium 40 Mg Tablet 1 Tab PO QHS Aspirin Ec (Aspirin) 81 Mg Tablet.dr 1 Tab PO DAILY Ondansetron Odt (Ondansetron) 4 Mg Tab.rapdis 1 Tab PO PRN Q6-8HRS Protonix (Pantoprazole Sodium) 20 Mg Tablet.dr 40 Mg PO DAILYAC Metoclopramide Hcl 10 Mg Tablet 10 Mg PO QIDACHS Trazodone Hcl 100 Mg Tablet 2 Tab PO QHS Vitals/I & O Vital Sign - Last 24 Hours 8/17/18 10/13/17 10/13/17 10/13/17 11:00 13:10 15:00 17:28 Temp 98.2 98.1 98.2 98.1 Pulse 96 96 Resp 16 18 18 17 B/P (MAP) 163/86 (111) 131/71 (91) Pulse Ox 100 100 100 100 O2 Delivery Room Air Room Air Room Air Room Air 10/13/17 10/13/17 10/13/17 10/13/17 19:30 20:30 20:30 21:35 Temp 98.7 98.7 Pulse 105 100 Resp 18 B/P (MAP) 179/90 (119) 153/71 (98) Pulse Ox 98 98 O2 Delivery Room Air Room Air Room Air Room Air 10/13/17 10/14/17 10/14/17 10/14/17 23:00 03:00 03:47 05:46 Temp 99.0 98.3 99.0 98.3 Pulse 98 96 Resp 16 16 20 B/P (MAP) 174/93 (120) 159/78 (105) Pulse Ox 99 99 99 99 O2 Delivery Room Air Room Air Room Air Room Air 10/14/17 10/14/17 10/14/17 06:20 07:00 09:00 Temp 98.2 98.2 Pulse 93 Resp 18 B/P (MAP) 180/92 (121) Pulse Ox 99 100 100 O2 Delivery Room Air Room Air Room Air Intake and Output 10/13/17 10/13/17 10/14/17 15:00 23:00 07:00 Intake Total 210 ml 936 ml Output Total 0 ml Balance 210 ml 936 ml TOMER NAVA III DO Oct 14, 2017 11:06
[2017-10-14 15:00] VITALS: BP 149/77
[2017-10-14 19:25] VITALS: BP 174/95
[2017-10-14] MEDS ORDERED: diphenhydrAMINE HCL 25 MG CAPSULE PO PRN (20:30)
[2017-10-14] MEDS ORDERED: HYDROcodone/APAP 5/325MG 1 TAB TABLET PO PRN (20:30)
[2017-10-14] MEDS ORDERED: ONDANSETRON ODT 4 MG TAB.RAPDIS. PO PRN (20:30)
[2017-10-14] MEDS: CARVEDILOL 12.5 MG TABLET. PO SCH (20:42)
[2017-10-14] MEDS: ATORVASTATIN CALCIUM 40 MG TABLET. PO SCH (20:43)
[2017-10-14] MEDS: AMITRIPTYLINE HCL 10 MG TABLET. PO SCH (20:43)
[2017-10-14] MEDS: ZOLPIDEM 5 MG TABLET. PO SCH (21:20)
[2017-10-14] MEDS: traZODone 100 MG TABLET. PO SCH (21:20)
[2017-10-14] MEDS: INSULIN GLARGINE 300 UNITS/3 ML INSULN.PEN. SQ SCH (21:23)
[2017-10-14 22:38] VITALS: BP 161/75
[2017-10-15] MEDS: IV NORMAL SALINE 1000ML BAG 1,000 ML IV SCH (01:14)
[2017-10-15 03:00] VITALS: BP 147/70
[2017-10-15] MEDS: METOCLOPRAMIDE HCL 10 MG/2 ML VIAL. IV SCH ×4 (06:08→21:42)
[2017-10-15] MEDS: LANSOPRAZOLE 30 MG TAB.RAP.DR FT SCH (06:08)
[2017-10-15 06:26] LABS: BASO % 1 % (0-3); EOS # 0.1 x10^3/uL (0.0-0.7); EOS % 1 % (0-3); HEMOGLOBIN 9.2 g/dL (12.0-15.5); LYMPH # 1.3 x10^3/uL (1.0-4.8); LYMPH % 25 % (24-48); MEAN CORPUSCULAR HEMOGLOBIN 28 pg (25-35); MEAN CORPUSCULAR HGB CONC 34 g/dL (31-37); MEAN CORPUSCULAR VOLUME 81 fL (79-100); MONO # 0.5 x10^3/uL (0.0-1.1); MONO % 10 % (0-9); NEUT # 3.4 x10^3uL (1.8-7.7); NEUT % 63 % (31-73); PLATELET COUNT 317 x10^3/uL (140-400); RED BLOOD COUNT 3.33 x10^6/uL (3.50-5.40); RED CELL DISTRIBUTION WIDTH 16.8 % (11.5-14.5); WHITE BLOOD COUNT 5.3 x10^3/uL (4.0-11.0)
[2017-10-15 06:30] LABS: CALCIUM 8.7 mg/dL (8.5-10.1); CREATININE 0.6 mg/dL (0.6-1.0); GFR 102.3; POTASSIUM 3.4 mmol/L (3.5-5.1)
[2017-10-15 07:00] VITALS: BP 164/93
[2017-10-15] MEDS ORDERED: NON FORMULARY ITEM (Pantoprazole Sodium (Protonix) 40 MG) PO SCH (07:30)
[2017-10-15] MEDS: CARVEDILOL 12.5 MG TABLET. PO SCH ×2 (08:54→16:35)
[2017-10-15] MEDS: LISINOPRIL 20 MG TABLET PO SCH (08:55)
[2017-10-15] MEDS: MORPHINE SULFATE 2 MG/ML VIAL. IV PRN ×2 (08:55→12:16)
[2017-10-15] MEDS: CITALOPRAM 20 MG TABLET. PO SCH (08:56)
[2017-10-15] MEDS: LIPASE/PROTEAS/AMYLAS 10/32/42 CAPSULE.DR. PO SCH ×3 (08:57→16:35)
[2017-10-15] MEDS: CLOPIDOGREL BISULFATE 75 MG TABLET PO SCH (08:57)
[2017-10-15] MEDS: LACTOBACILLUS RHAMNOSUS GG 1 CAPSULE. PO SCH (08:58)
[2017-10-15] MEDS: ASPIRIN ENTERIC COATED 81 MG TABLET.DR. PO SCH (09:01)
--- NOTE | 2017-10-15 09:28 | PDOC ---
PROGRESS NOTES Chief Complaint Chief Complaint Chronic Pancreatitis CAD, breast cancer diabetes hypertension appendectomy J-tube pulmonary embolism cholecystectomy tonsillectomy right mastectomy cardiac stents. hypokalemia replacing History of Present Illness History of Present Illness still with abdominal pain, restarted home po medication, tolerating some po but not much, poor po intake .replace K+, continue supportive care, Vitals Vitals Vital Signs Date Time Temp Pulse Resp B/P (MAP) Pulse Ox O2 Delivery O2 Flow Rate FiO2 10/15/17 08:58 85 164/93 10/15/17 08:55 99 Room Air 10/15/17 07:00 98.2 18 98.2 Physical Exam General: Alert, Oriented X3 Heart: Regular rate, Normal S1 Lungs: Clear Abdomen: Soft, Other (tender abdomen epigastric area as well as lower abdomen) Extremities: No clubbing, No cyanosis Skin: No rashes, No breakdown Labs LABS Laboratory Tests Test 10/14/17 11:44 10/14/17 16:37 10/14/17 21:02 10/15/17 06:00 Glucose (Fingerstick) 168 mg/dL (70-99) 159 mg/dL (70-99) 183 mg/dL (70-99) White Blood Count 5.3 x10^3/uL (4.0-11.0) Red Blood Count 3.33 x10^6/uL (3.50-5.40) Hemoglobin 9.2 g/dL (12.0-15.5) Hematocrit 27.0 % (36.0-47.0) Mean Corpuscular Volume 81 fL (79-100) Mean Corpuscular Hemoglobin 28 pg (25-35) Mean Corpuscular Hemoglobin Concent 34 g/dL (31-37) Red Cell Distribution Width 16.8 % (11.5-14.5) Platelet Count 317 x10^3/uL (140-400) Neutrophils (%) (Auto) 63 % (31-73) Lymphocytes (%) (Auto) 25 % (24-48) Monocytes (%) (Auto) 10 % (0-9) Eosinophils (%) (Auto) 1 % (0-3) Basophils (%) (Auto) 1 % (0-3) Neutrophils # (Auto) 3.4 x10^3uL (1.8-7.7) Lymphocytes # (Auto) 1.3 x10^3/uL (1.0-4.8) Monocytes # (Auto) 0.5 x10^3/uL (0.0-1.1) Eosinophils # (Auto) 0.1 x10^3/uL (0.0-0.7) Basophils # (Auto) 0.0 x10^3/uL (0.0-0.2) Sodium Level 139 mmol/L (136-145) Potassium Level 3.4 mmol/L (3.5-5.1) Chloride Level 105 mmol/L (98-107) Carbon Dioxide Level 29 mmol/L (21-32) Anion Gap 5 (6-14) Blood Urea Nitrogen 5 mg/dL (7-20) Creatinine 0.6 mg/dL (0.6-1.0) Estimated GFR (Cockcroft-Gault) 102.3 Glucose Level 66 mg/dL (70-99) Calcium Level 8.7 mg/dL (8.5-10.1) Comment Review of Relevant I have reviewed the following items yanet (where applicable) has been applied. Labs Laboratory Tests Test 10/13/17 11:40 10/13/17 12:45 10/13/17 14:20 10/13/17 16:23 Lactic Acid Level 1.4 mmol/L (0.4-2.0) Glucose (Fingerstick) 141 mg/dL (70-99) 108 mg/dL (70-99) Lipase 273 U/L (73-393) Test 10/13/17 21:11 10/14/17 05:50 10/14/17 07:36 10/14/17 11:44 Glucose (Fingerstick) 225 mg/dL (70-99) 136 mg/dL (70-99) 168 mg/dL (70-99) White Blood Count 4.8 x10^3/uL (4.0-11.0) Red Blood Count 3.24 x10^6/uL (3.50-5.40) Hemoglobin 9.0 g/dL (12.0-15.5) Hematocrit 26.4 % (36.0-47.0) Mean Corpuscular Volume 81 fL (79-100) Mean Corpuscular Hemoglobin 28 pg (25-35) Mean Corpuscular Hemoglobin Concent 34 g/dL (31-37) Red Cell Distribution Width 16.7 % (11.5-14.5) Platelet Count 324 x10^3/uL (140-400) Neutrophils (%) (Auto) 57 % (31-73) Lymphocytes (%) (Auto) 31 % (24-48) Monocytes (%) (Auto) 10 % (0-9) Eosinophils (%) (Auto) 1 % (0-3) Basophils (%) (Auto) 1 % (0-3) Neutrophils # (Auto) 2.8 x10^3uL (1.8-7.7) Lymphocytes # (Auto) 1.5 x10^3/uL (1.0-4.8) Monocytes # (Auto) 0.5 x10^3/uL (0.0-1.1) Eosinophils # (Auto) 0.1 x10^3/uL (0.0-0.7) Basophils # (Auto) 0.0 x10^3/uL (0.0-0.2) Sodium Level 137 mmol/L (136-145) Potassium Level 3.0 mmol/L (3.5-5.1) Chloride Level 104 mmol/L (98-107) Carbon Dioxide Level 27 mmol/L (21-32) Anion Gap 6 (6-14) Blood Urea Nitrogen 4 mg/dL (7-20) Creatinine 0.6 mg/dL (0.6-1.0) Estimated GFR (Cockcroft-Gault) 102.3 Glucose Level 140 mg/dL (70-99) Calcium Level 7.8 mg/dL (8.5-10.1) Lipase 240 U/L (73-393) Test 10/14/17 16:37 10/14/17 21:02 10/15/17 06:00 Glucose (Fingerstick) 159 mg/dL (70-99) 183 mg/dL (70-99) White Blood Count 5.3 x10^3/uL (4.0-11.0) Red Blood Count 3.33 x10^6/uL (3.50-5.40) Hemoglobin 9.2 g/dL (12.0-15.5) Hematocrit 27.0 % (36.0-47.0) Mean Corpuscular Volume 81 fL (79-100) Mean Corpuscular Hemoglobin 28 pg (25-35) Mean Corpuscular Hemoglobin Concent 34 g/dL (31-37) Red Cell Distribution Width 16.8 % (11.5-14.5) Platelet Count 317 x10^3/uL (140-400) Neutrophils (%) (Auto) 63 % (31-73) Lymphocytes (%) (Auto) 25 % (24-48) Monocytes (%) (Auto) 10 % (0-9) Eosinophils (%) (Auto) 1 % (0-3) Basophils (%) (Auto) 1 % (0-3) Neutrophils # (Auto) 3.4 x10^3uL (1.8-7.7) Lymphocytes # (Auto) 1.3 x10^3/uL (1.0-4.8) Monocytes # (Auto) 0.5 x10^3/uL (0.0-1.1) Eosinophils # (Auto) 0.1 x10^3/uL (0.0-0.7) Basophils # (Auto) 0.0 x10^3/uL (0.0-0.2) Sodium Level 139 mmol/L (136-145) Potassium Level 3.4 mmol/L (3.5-5.1) Chloride Level 105 mmol/L (98-107) Carbon Dioxide Level 29 mmol/L (21-32) Anion Gap 5 (6-14) Blood Urea Nitrogen 5 mg/dL (7-20) Creatinine 0.6 mg/dL (0.6-1.0) Estimated GFR (Cockcroft-Gault) 102.3 Glucose Level 66 mg/dL (70-99) Calcium Level 8.7 mg/dL (8.5-10.1) Laboratory Tests Test 10/14/17 11:44 10/14/17 16:37 10/14/17 21:02 10/15/17 06:00 Glucose (Fingerstick) 168 mg/dL (70-99) 159 mg/dL (70-99) 183 mg/dL (70-99) White Blood Count 5.3 x10^3/uL (4.0-11.0) Red Blood Count 3.33 x10^6/uL (3.50-5.40) Hemoglobin 9.2 g/dL (12.0-15.5) Hematocrit 27.0 % (36.0-47.0) Mean Corpuscular Volume 81 fL (79-100) Mean Corpuscular Hemoglobin 28 pg (25-35) Mean Corpuscular Hemoglobin Concent 34 g/dL (31-37) Red Cell Distribution Width 16.8 % (11.5-14.5) Platelet Count 317 x10^3/uL (140-400) Neutrophils (%) (Auto) 63 % (31-73) Lymphocytes (%) (Auto) 25 % (24-48) Monocytes (%) (Auto) 10 % (0-9) Eosinophils (%) (Auto) 1 % (0-3) Basophils (%) (Auto) 1 % (0-3) Neutrophils # (Auto) 3.4 x10^3uL (1.8-7.7) Lymphocytes # (Auto) 1.3 x10^3/uL (1.0-4.8) Monocytes # (Auto) 0.5 x10^3/uL (0.0-1.1) Eosinophils # (Auto) 0.1 x10^3/uL (0.0-0.7) Basophils # (Auto) 0.0 x10^3/uL (0.0-0.2) Sodium Level 139 mmol/L (136-145) Potassium Level 3.4 mmol/L (3.5-5.1) Chloride Level 105 mmol/L (98-107) Carbon Dioxide Level 29 mmol/L (21-32) Anion Gap 5 (6-14) Blood Urea Nitrogen 5 mg/dL (7-20) Creatinine 0.6 mg/dL (0.6-1.0) Estimated GFR (Cockcroft-Gault) 102.3 Glucose Level 66 mg/dL (70-99) Calcium Level 8.7 mg/dL (8.5-10.1) Microbiology 10/12/17 Urine Culture - Final, Complete 10/12/17 Urine Culture Result 1 (OREN) - Final, Complete Medications Current Medications Fentanyl Citrate (Fentanyl 2ml Vial) 50 mcg PRN Q15MIN PRN IV PAIN GREATER THAN 3/10 Last administered on 10/12/17at 21:47; Start 10/12/17 at 21:00; Stop at 00:00; Status DC Sodium Chloride 1,000 ml @ 1,000 mls/hr Q1H IV Last administered on 10/12/17at 21:47; Start 10/12/17 at 21:30; Stop 10/12/17 at 22:29; Status DC Ondansetron HCl (Zofran) 4 mg 1X ONCE IV Last administered on 10/12/17at 21:46 ; Start 10/12/17 at 21:30; Stop 10/12/17 at 21:31; Status DC Promethazine HCl (Phenergan Im) 25 mg 1X ONCE IM Last administered on at 21:30; Start 10/12/17 at 21:30; Stop 10/12/17 at 21:31; Status DC Ondansetron HCl (Zofran) 4 mg PRN Q8HRS PRN IV NAUSEA/VOMITING 1ST CHOICE; Start 10/12/17 at 23:30; Stop 10/13/17 at 23:29; Status DC Fentanyl Citrate (Fentanyl 2ml Vial) 50 mcg PRN Q3HRS PRN IV SEVERE PAIN Last administered on 10/13/17at 00:57; Start 10/12/17 at 23:30; Stop 10/13/17 at 10:00 ; Status DC Sodium Chloride 1,000 ml @ 100 mls/hr Q10H IV Last administered on 10/13/17at 21:34; Start 10/12/17 at 23:30; Stop 10/13/17 at 23:29; Status DC Dextrose (Dextrose 50%-Water Syringe) 12.5 gm PRN Q15MIN PRN IV SEE COMMENTS; Start 10/13/17 at 08:15 Labetalol HCl (Normodyne Iv Push) 20 mg PRN Q6HRS PRN IVP HYPERTENSION, SEE COMMENTS Last administered on 10/13/17at 08:34; Start 10/13/17 at 08:30 Sodium Chloride 1,000 ml @ 75 mls/hr [id number] IV Last administered on at 01:14; Start 10/13/17 at 12:00 Morphine Sulfate (Morphine Sulfate) 2 mg PRN Q2HR PRN IV PAIN Last administered on 10/15/17at 08:55; Start 10/13/17 at 12:00 Lansoprazole (Prevacid) 30 mg DAILYAC FT Last administered on 10/15/17at 06:08; Start 10/13/17 at 16:30 Metoclopramide HCl (Reglan Vial) 10 mg QIDACHS IV Last administered on 06:08; Start 10/13/17 at 16:30 Amitriptyline HCl (Elavil) 20 mg QHS PO Last administered on 10/14/17at 20:43; Start 10/14/17 at 21:00 Aspirin (Ecotrin) 81 mg DAILY PO Last administered on 10/15/17 09:01; Start at 09:00 Atorvastatin Calcium (Lipitor) 40 mg QHS PO Last administered on 10/14/17 20: 43; Start 10/14/17 at 21:00 Citalopram Hydrobromide (CeleXA) 20 mg DAILY PO Last administered on 10/15/17 08:56; Start 10/15/17 at 09:00 Clopidogrel Bisulfate (Plavix) 75 mg DAILYWBKFT PO Last administered on 08:57; Start 10/15/17 at 08:00 Diltiazem HCl (Cardizem 24hr Cd) 120 mg DAILY PO Last administered on 08:58; Start 10/15/17 at 09:00 Diphenhydramine HCl (Benadryl) 25 mg PRN Q6HRS PRN PO ITCHING; Start 10/14/17 at 20:30 Acetaminophen/ Hydrocodone Bitart (Lortab 5/325) 1 tab PRN Q8HRS PRN PO PAIN; Start 10/14/17 at 20:30 Insulin Glargine (Lantus) 25 units QHS SQ Last administered on 10/14/17at 21:23 ; Start 10/14/17 at 21:00 Lactobacillus Rhamnosus (Culturelle) 1 cap DAILY PO Last administered on at 08:58; Start 10/15/17 at 09:00 Lisinopril (Prinivil) 20 mg DAILY PO Last administered on 10/15/17at 08:55; Start 10/15/17 at 09:00 Ondansetron HCl (Zofran Odt) 4 mg PRN Q6HRS PRN PO NAUSEA/VOMITING; Start 10/14 at 20:30 Trazodone HCl (Desyrel) 200 mg QHS PO Last administered on 10/14/17at 21:20; Start 10/14/17 at 21:00 Carvedilol (Coreg) 25 mg BIDWMEALS PO Last administered on 10/15/17at 08:54; Start 10/14/17 at 21:00 Amylase/Lipase/ Protease (Zenpep 10,000) 1 cap TIDWMEALS PO Last administered on 10/15/17at 08:57; Start 10/15/17 at 08:00 Non-Formulary Medication (Pantoprazole Sodium (Protonix)) 40 mg DAILYAC PO ; Start 10/15/17 at 07:30; Status UNV Zolpidem Tartrate (Ambien) 5 mg QHS PO Last administered on 10/14/17at 21:20; Start 10/14/17 at 21:00 Active Scripts Active Reglan (Metoclopramide Hcl) 10 Mg Tablet 10 Mg PO QIDACHS PRN Zofran (Ondansetron Hcl) 4 Mg Tablet 1 Tab PO Q6HRS PRN Ambien (Zolpidem Tartrate) 10 Mg Tablet 1 Tab PO QHS Prinivil (Lisinopril) 20 Mg Tablet 20 Mg PO DAILY Plavix (Clopidogrel Bisulfate) 75 Mg Tablet 75 Mg PO DAILYWBKFT Reported Amitriptyline Hcl 10 Mg Tablet 2 Tab PO QHS Cardizem Cd (Diltiazem Hcl) 240 Mg Cap.er.24h 0.5 Cap PO DAILY Benadryl (Diphenhydramine Hcl) 25 Mg Capsule 25 Mg PO Q6HRS PRN Culturelle (Lactobacillus Rhamnosus Gg) 1 Each Cap.sprink 1 Each PO DAILY Lantus Solostar (Insulin Glargine,Hum.rec.anlog) 100 Unit/1 Ml Insuln.pen 25 Unit SQ QHS Hydrocodone-Apap 5-325 (Hydrocodone Bit/Acetaminophen) 1 Each Tablet 1 Tab PO PRN Q8HRS PRN Creon 12,000 Units Capsule (Lipase/Protease/Amylase) 1 Each Capsule.dr 1 Each PO TID Citalopram Hbr (Citalopram Hydrobromide) 20 Mg Tablet 1 Tab PO DAILY Carvedilol 25 Mg Tablet 1 Tab PO BID Atorvastatin Calcium 40 Mg Tablet 1 Tab PO QHS Aspirin Ec (Aspirin) 81 Mg Tablet.dr 1 Tab PO DAILY Ondansetron Odt (Ondansetron) 4 Mg Tab.rapdis 1 Tab PO PRN Q6-8HRS Protonix (Pantoprazole Sodium) 20 Mg Tablet.dr 40 Mg PO DAILYAC Metoclopramide Hcl 10 Mg Tablet 10 Mg PO QIDACHS Trazodone Hcl 100 Mg Tablet 2 Tab PO QHS Vitals/I & O Vital Sign - Last 24 Hours 10/14/17 10/14/17 10/14/17 10/14/17 11:00 11:48 15:00 16:16 Temp 98.7 98.5 98.7 98.5 Pulse 18 96 Resp 18 18 B/P (MAP) 176/94 (121) 149/77 (101) Pulse Ox 99 100 99 99 O2 Delivery Room Air Room Air Room Air Room Air 10/14/17 10/14/17 10/14/17 10/14/17 19:25 20:10 20:42 20:42 Temp 98.2 98.2 Pulse 89 89 Resp 18 18 B/P (MAP) 174/95 (121) 174/95 Pulse Ox 100 100 O2 Delivery Room Air Room Air Room Air 10/14/17 10/14/17 10/15/17 10/15/17 21:18 22:38 03:00 07:00 Temp 97.5 97.7 98.2 97.5 97.7 98.2 Pulse 79 75 85 Resp 18 18 18 18 B/P (MAP) 161/75 (103) 147/70 (95) 164/93 (116) Pulse Ox 100 99 99 99 O2 Delivery Room Air Room Air Room Air Room Air 10/15/17 10/15/17 10/15/17 10/15/17 08:54 08:55 08:55 08:58 Pulse 85 85 85 B/P (MAP) 164/93 164/93 164/93 Pulse Ox 99 O2 Delivery Room Air Intake and Output 10/14/17 10/14/17 10/15/17 15:00 23:00 07:00 Intake Total 1852 ml Balance 1852 ml ABHISHEK [id number] MD Oct 15, 2017 09:28
[2017-10-15] MEDS ORDERED: POTASSIUM CHLORIDE 20 MEQ TABLET.ER. PO ONE (10:00)
[2017-10-15 11:00] VITALS: BP 183/93
[2017-10-15 15:00] VITALS: BP 183/93
[2017-10-15] MEDS: POTASSIUM CL 40MEQ IN 0.9%NACL 1,000 ML IV SCH (16:37)
[2017-10-15] MEDS: HYDROcodone/APAP 5/325MG 1 TAB TABLET PO PRN ×2 (16:41→21:43)
[2017-10-15 19:00] VITALS: BP 122/61
[2017-10-15] MEDS: ZOLPIDEM 5 MG TABLET. PO SCH (21:43)
[2017-10-15] MEDS: ATORVASTATIN CALCIUM 40 MG TABLET. PO SCH (21:43)
[2017-10-15] MEDS: traZODone 100 MG TABLET. PO SCH (21:43)
[2017-10-15] MEDS: AMITRIPTYLINE HCL 10 MG TABLET. PO SCH (21:43)
[2017-10-15] MEDS: INSULIN GLARGINE 300 UNITS/3 ML INSULN.PEN. SQ SCH (21:49)
[2017-10-15 23:00] VITALS: BP 114/59
[2017-10-16 03:00] VITALS: BP 108/57
[2017-10-16 05:36] LABS: BASO % 0 % (0-3); EOS # 0.1 x10^3/uL (0.0-0.7); EOS % 1 % (0-3); HEMATOCRIT 26.4 % (36.0-47.0); HEMOGLOBIN 8.9 g/dL (12.0-15.5); LYMPH # 0.9 x10^3/uL (1.0-4.8); LYMPH % 18 % (24-48); MEAN CORPUSCULAR HEMOGLOBIN 28 pg (25-35); MEAN CORPUSCULAR HGB CONC 34 g/dL (31-37); MEAN CORPUSCULAR VOLUME 82 fL (79-100); MONO # 0.5 x10^3/uL (0.0-1.1); MONO % 9 % (0-9); NEUT # 3.8 x10^3uL (1.8-7.7); NEUT % 72 % (31-73); PLATELET COUNT 316 x10^3/uL (140-400); RED BLOOD COUNT 3.23 x10^6/uL (3.50-5.40); RED CELL DISTRIBUTION WIDTH 17.1 % (11.5-14.5); WHITE BLOOD COUNT 5.3 x10^3/uL (4.0-11.0)
[2017-10-16] MEDS: METOCLOPRAMIDE HCL 10 MG/2 ML VIAL. IV SCH ×2 (05:50→12:43)
[2017-10-16] MEDS: LANSOPRAZOLE 30 MG TAB.RAP.DR FT SCH (05:50)
[2017-10-16 06:05] LABS: ALBUMIN 2.3 g/dL (3.4-5.0); ALBUMIN/GLOBULIN RATIO 0.8 (1.0-1.7); CALCIUM 8.5 mg/dL (8.5-10.1); CREATININE 0.7 mg/dL (0.6-1.0); GFR 85.6; POTASSIUM 3.5 mmol/L (3.5-5.1); TOTAL BILIRUBIN 0.2 mg/dL (0.2-1.0); TOTAL PROTEIN 5.3 g/dL (6.4-8.2)
[2017-10-16] MEDS: POTASSIUM CL 40MEQ IN 0.9%NACL 1,000 ML IV SCH ×2 (06:06→21:23)
[2017-10-16 07:00] VITALS: BP 125/57
[2017-10-16] MEDS: CITALOPRAM 20 MG TABLET. PO SCH (09:21)
[2017-10-16] MEDS: LACTOBACILLUS RHAMNOSUS GG 1 CAPSULE. PO SCH (09:21)
[2017-10-16] MEDS: LIPASE/PROTEAS/AMYLAS 10/32/42 CAPSULE.DR. PO SCH ×3 (09:21→17:00)
[2017-10-16] MEDS: CLOPIDOGREL BISULFATE 75 MG TABLET PO SCH (09:21)
[2017-10-16] MEDS: ASPIRIN ENTERIC COATED 81 MG TABLET.DR. PO SCH (09:21)
[2017-10-16] MEDS: CARVEDILOL 12.5 MG TABLET. PO SCH ×2 (09:21→17:01)
[2017-10-16] MEDS: LISINOPRIL 20 MG TABLET PO SCH (09:21)
[2017-10-16 11:00] VITALS: BP 104/65
[2017-10-16] MEDS ORDERED: DEXTROSE 50% 25 GM / 50ML DISP.SYRIN. IV PRN (11:00)
[2017-10-16] MEDS: INSULIN LISPRO 300 UNITS/3 ML INSULN.PEN. SQ SCH ×2 (12:49→17:00)
--- NOTE | 2017-10-16 13:40 | PDOC ---
Subjective: Subjective: Says ate some yogurt. No J tube feeds. No vomiting, abd pain is better. Objective: Objective: RN doesn't know why J tube feeds haven't been started, no vomiting in the hospital. Vital Signs: Vital Signs Date Time Temp Pulse Resp B/P (MAP) Pulse Ox O2 Delivery O2 Flow Rate FiO2 10/16/17 11:00 98.1 74 16 104/65 (78) 99 Room Air 98.1 Labs: Laboratory Tests Test 10/15/17 17:02 10/15/17 20:23 10/16/17 05:29 10/16/17 05:44 Glucose (Fingerstick) 100 mg/dL 243 mg/dL 38 mg/dL White Blood Count 5.3 x10^3/uL Red Blood Count 3.23 x10^6/uL Hemoglobin 8.9 g/dL Hematocrit 26.4 % Mean Corpuscular Volume 82 fL Mean Corpuscular Hemoglobin 28 pg Mean Corpuscular Hemoglobin Concent 34 g/dL Red Cell Distribution Width 17.1 % Platelet Count 316 x10^3/uL Neutrophils (%) (Auto) 72 % Lymphocytes (%) (Auto) 18 % Monocytes (%) (Auto) 9 % Eosinophils (%) (Auto) 1 % Basophils (%) (Auto) 0 % Neutrophils # (Auto) 3.8 x10^3uL Lymphocytes # (Auto) 0.9 x10^3/uL Monocytes # (Auto) 0.5 x10^3/uL Eosinophils # (Auto) 0.1 x10^3/uL Basophils # (Auto) 0.0 x10^3/uL Erythrocyte Sedimentation Rate 30 Sodium Level 142 mmol/L Potassium Level 3.5 mmol/L Chloride Level 108 mmol/L Carbon Dioxide Level 29 mmol/L Anion Gap 5 Blood Urea Nitrogen 6 mg/dL Creatinine 0.7 mg/dL Estimated GFR (Cockcroft-Gault) 85.6 BUN/Creatinine Ratio 9 Glucose Level 39 mg/dL Calcium Level 8.5 mg/dL Total Bilirubin 0.2 mg/dL Aspartate Amino Transf (AST/SGOT) 9 U/L Alanine Aminotransferase (ALT/SGPT) 12 U/L Alkaline Phosphatase 91 U/L Total Protein 5.3 g/dL Albumin 2.3 g/dL Albumin/Globulin Ratio 0.8 Amylase Level 40 U/L Lipase 198 U/L Test 10/16/17 06:08 10/16/17 07:35 10/16/17 11:40 Glucose (Fingerstick) 207 mg/dL 231 mg/dL 177 mg/dL PE: GEN: NAD LUNGS: CTAB HEART: RRR ABD: NABS, S/ND/NT NEURO/PSYCH: A & O 3 A/P: Chronic abd pain and n/v - better Gastroparesis w/ J tube Mildly elevated lipase - resolved -- Only eating a little PO (yogurt), J tube hasn't been used this admission. Will ask nutrition to see re: J tube feeds. Change to PO Reglan (susp), continue PPI. MAXINE JEONG Oct 16, 2017 13:40
--- NOTE | 2017-10-16 14:27 | PDOC ---
PROGRESS NOTES Chief Complaint Chief Complaint Chronic Pancreatitis CAD, breast cancer diabetes hypertension appendectomy J-tube pulmonary embolism cholecystectomy tonsillectomy right mastectomy cardiac stents. hypokalemia replacing History of Present Illness History of Present Illness abdominal pain is btter today, restarted home po medication, t supportive care, may DC soon if able, is ambulating, Vitals Vitals Vital Signs Date Time Temp Pulse Resp B/P (MAP) Pulse Ox O2 Delivery O2 Flow Rate FiO2 10/16/17 11:00 98.1 74 16 104/65 (78) 99 Room Air 98.1 Physical Exam General: Alert, Oriented X3 Heart: Regular rate, Normal S1 Lungs: Clear Abdomen: Soft, Other (tender abdomen epigastric area as well as lower abdomen) Extremities: No clubbing, No cyanosis Skin: No rashes, No breakdown Labs LABS Laboratory Tests Test 10/15/17 17:02 10/15/17 20:23 10/16/17 05:29 10/16/17 05:44 Glucose (Fingerstick) 100 mg/dL (70-99) 243 mg/dL (70-99) 38 mg/dL (70-99) White Blood Count 5.3 x10^3/uL (4.0-11.0) Red Blood Count 3.23 x10^6/uL (3.50-5.40) Hemoglobin 8.9 g/dL (12.0-15.5) Hematocrit 26.4 % (36.0-47.0) Mean Corpuscular Volume 82 fL (79-100) Mean Corpuscular Hemoglobin 28 pg (25-35) Mean Corpuscular Hemoglobin Concent 34 g/dL (31-37) Red Cell Distribution Width 17.1 % (11.5-14.5) Platelet Count 316 x10^3/uL (140-400) Neutrophils (%) (Auto) 72 % (31-73) Lymphocytes (%) (Auto) 18 % (24-48) Monocytes (%) (Auto) 9 % (0-9) Eosinophils (%) (Auto) 1 % (0-3) Basophils (%) (Auto) 0 % (0-3) Neutrophils # (Auto) 3.8 x10^3uL (1.8-7.7) Lymphocytes # (Auto) 0.9 x10^3/uL (1.0-4.8) Monocytes # (Auto) 0.5 x10^3/uL (0.0-1.1) Eosinophils # (Auto) 0.1 x10^3/uL (0.0-0.7) Basophils # (Auto) 0.0 x10^3/uL (0.0-0.2) Erythrocyte Sedimentation Rate 30 (0-25) Sodium Level 142 mmol/L (136-145) Potassium Level 3.5 mmol/L (3.5-5.1) Chloride Level 108 mmol/L (98-107) Carbon Dioxide Level 29 mmol/L (21-32) Anion Gap 5 (6-14) Blood Urea Nitrogen 6 mg/dL (7-20) Creatinine 0.7 mg/dL (0.6-1.0) Estimated GFR (Cockcroft-Gault) 85.6 BUN/Creatinine Ratio 9 (6-20) Glucose Level 39 mg/dL (70-99) Calcium Level 8.5 mg/dL (8.5-10.1) Total Bilirubin 0.2 mg/dL (0.2-1.0) Aspartate Amino Transf (AST/SGOT) 9 U/L (15-37) Alanine Aminotransferase (ALT/SGPT) 12 U/L (14-59) Alkaline Phosphatase 91 U/L (46-116) Total Protein 5.3 g/dL (6.4-8.2) Albumin 2.3 g/dL (3.4-5.0) Albumin/Globulin Ratio 0.8 (1.0-1.7) Amylase Level 40 U/L (25-115) Lipase 198 U/L (73-393) Test 10/16/17 06:08 10/16/17 07:35 10/16/17 11:40 Glucose (Fingerstick) 207 mg/dL (70-99) 231 mg/dL (70-99) 177 mg/dL (70-99) Comment Review of Relevant I have reviewed the following items yanet (where applicable) has been applied. Labs Laboratory Tests Test 10/14/17 16:37 10/14/17 21:02 10/15/17 06:00 10/15/17 17:02 Glucose (Fingerstick) 159 mg/dL (70-99) 183 mg/dL (70-99) 100 mg/dL (70-99) White Blood Count 5.3 x10^3/uL (4.0-11.0) Red Blood Count 3.33 x10^6/uL (3.50-5.40) Hemoglobin 9.2 g/dL (12.0-15.5) Hematocrit 27.0 % (36.0-47.0) Mean Corpuscular Volume 81 fL (79-100) Mean Corpuscular Hemoglobin 28 pg (25-35) Mean Corpuscular Hemoglobin Concent 34 g/dL (31-37) Red Cell Distribution Width 16.8 % (11.5-14.5) Platelet Count 317 x10^3/uL (140-400) Neutrophils (%) (Auto) 63 % (31-73) Lymphocytes (%) (Auto) 25 % (24-48) Monocytes (%) (Auto) 10 % (0-9) Eosinophils (%) (Auto) 1 % (0-3) Basophils (%) (Auto) 1 % (0-3) Neutrophils # (Auto) 3.4 x10^3uL (1.8-7.7) Lymphocytes # (Auto) 1.3 x10^3/uL (1.0-4.8) Monocytes # (Auto) 0.5 x10^3/uL (0.0-1.1) Eosinophils # (Auto) 0.1 x10^3/uL (0.0-0.7) Basophils # (Auto) 0.0 x10^3/uL (0.0-0.2) Sodium Level 139 mmol/L (136-145) Potassium Level 3.4 mmol/L (3.5-5.1) Chloride Level 105 mmol/L (98-107) Carbon Dioxide Level 29 mmol/L (21-32) Anion Gap 5 (6-14) Blood Urea Nitrogen 5 mg/dL (7-20) Creatinine 0.6 mg/dL (0.6-1.0) Estimated GFR (Cockcroft-Gault) 102.3 Glucose Level 66 mg/dL (70-99) Calcium Level 8.7 mg/dL (8.5-10.1) Magnesium Level 1.6 mg/dL (1.8-2.4) Test 10/15/17 20:23 10/16/17 05:29 10/16/17 05:44 10/16/17 06:08 Glucose (Fingerstick) 243 mg/dL (70-99) 38 mg/dL (70-99) 207 mg/dL (70-99) White Blood Count 5.3 x10^3/uL (4.0-11.0) Red Blood Count 3.23 x10^6/uL (3.50-5.40) Hemoglobin 8.9 g/dL (12.0-15.5) Hematocrit 26.4 % (36.0-47.0) Mean Corpuscular Volume 82 fL (79-100) Mean Corpuscular Hemoglobin 28 pg (25-35) Mean Corpuscular Hemoglobin Concent 34 g/dL (31-37) Red Cell Distribution Width 17.1 % (11.5-14.5) Platelet Count 316 x10^3/uL (140-400) Neutrophils (%) (Auto) 72 % (31-73) Lymphocytes (%) (Auto) 18 % (24-48) Monocytes (%) (Auto) 9 % (0-9) Eosinophils (%) (Auto) 1 % (0-3) Basophils (%) (Auto) 0 % (0-3) Neutrophils # (Auto) 3.8 x10^3uL (1.8-7.7) Lymphocytes # (Auto) 0.9 x10^3/uL (1.0-4.8) Monocytes # (Auto) 0.5 x10^3/uL (0.0-1.1) Eosinophils # (Auto) 0.1 x10^3/uL (0.0-0.7) Basophils # (Auto) 0.0 x10^3/uL (0.0-0.2) Erythrocyte Sedimentation Rate 30 (0-25) Sodium Level 142 mmol/L (136-145) Potassium Level 3.5 mmol/L (3.5-5.1) Chloride Level 108 mmol/L (98-107) Carbon Dioxide Level 29 mmol/L (21-32) Anion Gap 5 (6-14) Blood Urea Nitrogen 6 mg/dL (7-20) Creatinine 0.7 mg/dL (0.6-1.0) Estimated GFR (Cockcroft-Gault) 85.6 BUN/Creatinine Ratio 9 (6-20) Glucose Level 39 mg/dL (70-99) Calcium Level 8.5 mg/dL (8.5-10.1) Total Bilirubin 0.2 mg/dL (0.2-1.0) Aspartate Amino Transf (AST/SGOT) 9 U/L (15-37) Alanine Aminotransferase (ALT/SGPT) 12 U/L (14-59) Alkaline Phosphatase 91 U/L (46-116) Total Protein 5.3 g/dL (6.4-8.2) Albumin 2.3 g/dL (3.4-5.0) Albumin/Globulin Ratio 0.8 (1.0-1.7) Amylase Level 40 U/L (25-115) Lipase 198 U/L (73-393) Test 10/16/17 07:35 10/16/17 11:40 Glucose (Fingerstick) 231 mg/dL (70-99) 177 mg/dL (70-99) Laboratory Tests Test 10/15/17 17:02 10/15/17 20:23 10/16/17 05:29 10/16/17 05:44 Glucose (Fingerstick) 100 mg/dL (70-99) 243 mg/dL (70-99) 38 mg/dL (70-99) White Blood Count 5.3 x10^3/uL (4.0-11.0) Red Blood Count 3.23 x10^6/uL (3.50-5.40) Hemoglobin 8.9 g/dL (12.0-15.5) Hematocrit 26.4 % (36.0-47.0) Mean Corpuscular Volume 82 fL (79-100) Mean Corpuscular Hemoglobin 28 pg (25-35) Mean Corpuscular Hemoglobin Concent 34 g/dL (31-37) Red Cell Distribution Width 17.1 % (11.5-14.5) Platelet Count 316 x10^3/uL (140-400) Neutrophils (%) (Auto) 72 % (31-73) Lymphocytes (%) (Auto) 18 % (24-48) Monocytes (%) (Auto) 9 % (0-9) Eosinophils (%) (Auto) 1 % (0-3) Basophils (%) (Auto) 0 % (0-3) Neutrophils # (Auto) 3.8 x10^3uL (1.8-7.7) Lymphocytes # (Auto) 0.9 x10^3/uL (1.0-4.8) Monocytes # (Auto) 0.5 x10^3/uL (0.0-1.1) Eosinophils # (Auto) 0.1 x10^3/uL (0.0-0.7) Basophils # (Auto) 0.0 x10^3/uL (0.0-0.2) Erythrocyte Sedimentation Rate 30 (0-25) Sodium Level 142 mmol/L (136-145) Potassium Level 3.5 mmol/L (3.5-5.1) Chloride Level 108 mmol/L (98-107) Carbon Dioxide Level 29 mmol/L (21-32) Anion Gap 5 (6-14) Blood Urea Nitrogen 6 mg/dL (7-20) Creatinine 0.7 mg/dL (0.6-1.0) Estimated GFR (Cockcroft-Gault) 85.6 BUN/Creatinine Ratio 9 (6-20) Glucose Level 39 mg/dL (70-99) Calcium Level 8.5 mg/dL (8.5-10.1) Total Bilirubin 0.2 mg/dL (0.2-1.0) Aspartate Amino Transf (AST/SGOT) 9 U/L (15-37) Alanine Aminotransferase (ALT/SGPT) 12 U/L (14-59) Alkaline Phosphatase 91 U/L (46-116) Total Protein 5.3 g/dL (6.4-8.2) Albumin 2.3 g/dL (3.4-5.0) Albumin/Globulin Ratio 0.8 (1.0-1.7) Amylase Level 40 U/L (25-115) Lipase 198 U/L (73-393) Test 10/16/17 06:08 10/16/17 07:35 10/16/17 11:40 Glucose (Fingerstick) 207 mg/dL (70-99) 231 mg/dL (70-99) 177 mg/dL (70-99) Microbiology 10/12/17 Urine Culture - Final, Complete 10/12/17 Urine Culture Result 1 (OREN) - Final, Complete Medications Current Medications Fentanyl Citrate (Fentanyl 2ml Vial) 50 mcg PRN Q15MIN PRN IV PAIN GREATER THAN 3/10 Last administered on 10/12/17at 21:47; Start 10/12/17 at 21:00; Stop at 00:00; Status DC Sodium Chloride 1,000 ml @ 1,000 mls/hr Q1H IV Last administered on 10/12/17at 21:47; Start 10/12/17 at 21:30; Stop 10/12/17 at 22:29; Status DC Ondansetron HCl (Zofran) 4 mg 1X ONCE IV Last administered on 10/12/17at 21:46 ; Start 10/12/17 at 21:30; Stop 10/12/17 at 21:31; Status DC Promethazine HCl (Phenergan Im) 25 mg 1X ONCE IM Last administered on at 21:30; Start 10/12/17 at 21:30; Stop 10/12/17 at 21:31; Status DC Ondansetron HCl (Zofran) 4 mg PRN Q8HRS PRN IV NAUSEA/VOMITING 1ST CHOICE; Start 10/12/17 at 23:30; Stop 10/13/17 at 23:29; Status DC Fentanyl Citrate (Fentanyl 2ml Vial) 50 mcg PRN Q3HRS PRN IV SEVERE PAIN Last administered on 10/13/17at 00:57; Start 10/12/17 at 23:30; Stop 10/13/17 at 10:00 ; Status DC Sodium Chloride 1,000 ml @ 100 mls/hr Q10H IV Last administered on 10/13/17at 21:34; Start 10/12/17 at 23:30; Stop 10/13/17 at 23:29; Status DC Dextrose (Dextrose 50%-Water Syringe) 12.5 gm PRN Q15MIN PRN IV SEE COMMENTS Last administered on 10/16/17at 05:50; Start 10/13/17 at 08:15; Stop 10/16/17 at 10:59; Status DC Labetalol HCl (Normodyne Iv Push) 20 mg PRN Q6HRS PRN IVP HYPERTENSION, SEE COMMENTS Last administered on 10/13/17at 08:34; Start 10/13/17 at 08:30 Sodium Chloride 1,000 ml @ 75 mls/hr [id number] IV Last administered on at 01:14; Start 10/13/17 at 12:00; Stop 10/15/17 at 16:25; Status DC Morphine Sulfate (Morphine Sulfate) 2 mg PRN Q2HR PRN IV PAIN Last administered on 10/15/17 12:16; Start 10/13/17 at 12:00; Stop 10/15/17 at 16:21 ; Status DC Lansoprazole (Prevacid) 30 mg DAILYAC FT Last administered on 10/16/17at 05:50; Start 10/13/17 at 16:30 Metoclopramide HCl (Reglan Vial) 10 mg QIDACHS IV Last administered on at 12:43; Start 10/13/17 at 16:30; Stop 10/16/17 at 13:40; Status DC Amitriptyline HCl (Elavil) 20 mg QHS PO Last administered on 10/15/17 21:43; Start 10/14/17 at 21:00 Aspirin (Ecotrin) 81 mg DAILY PO Last administered on 10/16/17 09:21; Start at 09:00 Atorvastatin Calcium (Lipitor) 40 mg QHS PO Last administered on 10/15/17at 21: 43; Start 10/14/17 at 21:00 Citalopram Hydrobromide (CeleXA) 20 mg DAILY PO Last administered on 10/16/17 09:21; Start 10/15/17 at 09:00 Clopidogrel Bisulfate (Plavix) 75 mg DAILYWBKFT PO Last administered on at 09:21; Start 10/15/17 at 08:00 Diltiazem HCl (Cardizem 24hr Cd) 120 mg DAILY PO Last administered on at 08:58; Start 10/15/17 at 09:00; Stop 10/15/17 at 09:29; Status DC Diphenhydramine HCl (Benadryl) 25 mg PRN Q6HRS PRN PO ITCHING; Start 10/14/17 at 20:30 Acetaminophen/ Hydrocodone Bitart (Lortab 5/325) 1 tab PRN Q8HRS PRN PO PAIN; Start 10/14/17 at 20:30; Stop 10/15/17 at 16:22; Status DC Insulin Glargine (Lantus) 25 units QHS SQ Last administered on 10/15/17at 21:49 ; Start 10/14/17 at 21:00; Stop 10/16/17 at 10:58; Status DC Lactobacillus Rhamnosus (Culturelle) 1 cap DAILY PO Last administered on 09:21; Start 10/15/17 at 09:00 Lisinopril (Prinivil) 20 mg DAILY PO Last administered on 10/16/17 09:21; Start 10/15/17 at 09:00 Ondansetron HCl (Zofran Odt) 4 mg PRN Q6HRS PRN PO NAUSEA/VOMITING; Start 10/14 at 20:30 Trazodone HCl (Desyrel) 200 mg QHS PO Last administered on 10/15/17 21:43; Start 10/14/17 at 21:00 Carvedilol (Coreg) 25 mg BIDWMEALS PO Last administered on 10/16/17 09:21; Start 10/14/17 at 21:00 Amylase/Lipase/ Protease (Zenpep 10,000) 1 cap TIDWMEALS PO Last administered on 10/16/17at 12:42; Start 10/15/17 at 08:00 Non-Formulary Medication (Pantoprazole Sodium (Protonix)) 40 mg DAILYAC PO ; Start 10/15/17 at 07:30; Status UNV Zolpidem Tartrate (Ambien) 5 mg QHS PO Last administered on 10/15/17 21:43; Start 10/14/17 at 21:00 Diltiazem HCl (Cardizem 24hr Cd) 240 mg DAILY PO ; Start 10/16/17 at 09:00 Diltiazem HCl (Cardizem 24hr Cd) 120 mg 1X ONCE PO Last administered on 09:53; Start 10/15/17 at 10:00; Stop 10/15/17 at 10:01; Status DC Potassium Chloride (Klor-Con) 20 meq 1X ONCE PO Last administered on 09:52; Start 10/15/17 at 10:00; Stop 10/15/17 at 10:01; Status DC Acetaminophen/ Hydrocodone Bitart (Lortab 5/325) 1 tab PRN Q4HRS PRN PO PAIN Last administered on 10/15/17 21:43; Start 10/15/17 at 16:30 Potassium Chloride/Sodium Chloride 1,000 ml @ 75 mls/hr [id number] IV Last administered on 10/16/17at 06:06; Start 10/15/17 at 18:00 Insulin Glargine (Lantus) 10 units QHS SQ ; Start 10/16/17 at 21:00 Insulin Human Lispro (HumaLOG) 0-5 UNITS TIDWMEALS SQ Last administered on 10/16at 12:49; Start 10/16/17 at 12:00 Dextrose (Dextrose 50%-Water Syringe) 12.5 gm PRN Q15MIN PRN IV SEE COMMENTS; Start 10/16/17 at 11:00 Metoclopramide HCl (Reglan Oral Solution) 10 mg QIDACHS PO ; Start 10/16/17 at 16:30 Active Scripts Active Reglan (Metoclopramide Hcl) 10 Mg Tablet 10 Mg PO QIDACHS PRN Zofran (Ondansetron Hcl) 4 Mg Tablet 1 Tab PO Q6HRS PRN Ambien (Zolpidem Tartrate) 10 Mg Tablet 1 Tab PO QHS Prinivil (Lisinopril) 20 Mg Tablet 20 Mg PO DAILY Plavix (Clopidogrel Bisulfate) 75 Mg Tablet 75 Mg PO DAILYWBKFT Reported Amitriptyline Hcl 10 Mg Tablet 2 Tab PO QHS Cardizem Cd (Diltiazem Hcl) 240 Mg Cap.er.24h 0.5 Cap PO DAILY Benadryl (Diphenhydramine Hcl) 25 Mg Capsule 25 Mg PO Q6HRS PRN Culturelle (Lactobacillus Rhamnosus Gg) 1 Each Cap.sprink 1 Each PO DAILY Lantus Solostar (Insulin Glargine,Hum.rec.anlog) 100 Unit/1 Ml Insuln.pen 25 Unit SQ QHS Hydrocodone-Apap 5-325 (Hydrocodone Bit/Acetaminophen) 1 Each Tablet 1 Tab PO PRN Q8HRS PRN Nadeem Mims 12,000 Units Capsule (Lipase/Protease/Amylase) 1 Each Capsule.dr 1 Each PO TID Citalopram Hbr (Citalopram Hydrobromide) 20 Mg Tablet 1 Tab PO DAILY Carvedilol 25 Mg Tablet 1 Tab PO BID Atorvastatin Calcium 40 Mg Tablet 1 Tab PO QHS Aspirin Ec (Aspirin) 81 Mg Tablet.dr 1 Tab PO DAILY Ondansetron Odt (Ondansetron) 4 Mg Tab.rapdis 1 Tab PO PRN Q6-8HRS Protonix (Pantoprazole Sodium) 20 Mg Tablet.dr 40 Mg PO DAILYAC Metoclopramide Hcl 10 Mg Tablet 10 Mg PO QIDACHS Trazodone Hcl 100 Mg Tablet 2 Tab PO QHS Vitals/I & O Vital Sign - Last 24 Hours 10/15/17 10/15/17 10/15/17 10/15/17 15:00 16:35 16:41 19:00 Temp 98.0 97.5 98.0 97.5 Pulse 97 97 80 Resp 18 18 B/P (MAP) 183/93 (123) 183/93 122/61 (81) Pulse Ox 99 99 97 O2 Delivery Room Air Room Air Room Air 10/15/17 10/15/17 10/15/17 10/15/17 20:45 21:43 22:45 23:00 Temp 97.9 97.9 Pulse 68 Resp 18 B/P (MAP) 114/59 (77) Pulse Ox 97 97 97 O2 Delivery Room Air Room Air Room Air Room Air 10/16/17 10/16/17 10/16/17 10/16/17 03:00 07:00 08:40 09:21 Temp 97.7 97.8 97.7 97.8 Pulse 67 70 70 Resp 18 18 B/P (MAP) 108/57 (74) 125/57 (79) 125/57 Pulse Ox 98 100 O2 Delivery Room Air Room Air Room Air 10/16/17 10/16/17 09:21 11:00 Temp 98.1 98.1 Pulse 70 74 Resp 16 B/P (MAP) 125/57 104/65 (78) Pulse Ox 99 O2 Delivery Room Air Intake and Output 10/15/17 10/15/17 10/16/17 15:01 23:01 07:01 Intake Total 240 ml 1801 ml Balance 240 ml 1801 ml BARRY BUENO MD Oct 16, 2017 14:27
[2017-10-16 15:00] VITALS: BP 140/72
[2017-10-16] MEDS: METOCLOPRAMIDE ORAL SOLN 10 MG/10 ML SOLUTION. PO SCH ×2 (17:00→21:23)
[2017-10-16] MEDS: HYDROcodone/APAP 5/325MG 1 TAB TABLET PO PRN (18:06)
[2017-10-16 19:00] VITALS: BP 110/53
[2017-10-16] MEDS ORDERED: INSULIN GLARGINE 300 UNITS/3 ML INSULN.PEN. SQ SCH (21:00)
[2017-10-16] MEDS: AMITRIPTYLINE HCL 10 MG TABLET. PO SCH (21:23)
[2017-10-16] MEDS: ZOLPIDEM 5 MG TABLET. PO SCH (21:23)
[2017-10-16] MEDS: ATORVASTATIN CALCIUM 40 MG TABLET. PO SCH (21:23)
[2017-10-16] MEDS: traZODone 100 MG TABLET. PO SCH (21:23)
[2017-10-16] MEDS ORDERED: INSULIN LISPRO 300 UNITS/3 ML INSULN.PEN. SQ ONE (21:30)
[2017-10-16 22:47] VITALS: BP 164/88
[2017-10-17 02:46] VITALS: BP 119/64
[2017-10-17] MEDS: METOCLOPRAMIDE ORAL SOLN 10 MG/10 ML SOLUTION. PO SCH ×4 (05:20→21:06)
[2017-10-17] MEDS: LANSOPRAZOLE 30 MG TAB.RAP.DR FT SCH (05:20)
[2017-10-17 05:56] LABS: BASO % 1 % (0-3); EOS # 0.1 x10^3/uL (0.0-0.7); EOS % 1 % (0-3); HEMATOCRIT 28.3 % (36.0-47.0); HEMOGLOBIN 9.5 g/dL (12.0-15.5); LYMPH % 22 % (24-48); MEAN CORPUSCULAR HEMOGLOBIN 28 pg (25-35); MEAN CORPUSCULAR HGB CONC 34 g/dL (31-37); MEAN CORPUSCULAR VOLUME 82 fL (79-100); MONO # 0.4 x10^3/uL (0.0-1.1); MONO % 9 % (0-9); NEUT % 66 % (31-73); PLATELET COUNT 295 x10^3/uL (140-400); RED BLOOD COUNT 3.45 x10^6/uL (3.50-5.40); RED CELL DISTRIBUTION WIDTH 17.1 % (11.5-14.5); WHITE BLOOD COUNT 4.6 x10^3/uL (4.0-11.0)
[2017-10-17 05:58] LABS: CALCIUM 8.6 mg/dL (8.5-10.1); CREATININE 0.8 mg/dL (0.6-1.0); GFR 73.4; POTASSIUM 4.2 mmol/L (3.5-5.1)
[2017-10-17 07:00] VITALS: BP 155/70
[2017-10-17] MEDS: LIPASE/PROTEAS/AMYLAS 10/32/42 CAPSULE.DR. PO SCH ×3 (08:42→17:43)
[2017-10-17] MEDS: CLOPIDOGREL BISULFATE 75 MG TABLET PO SCH (08:42)
[2017-10-17] MEDS: LACTOBACILLUS RHAMNOSUS GG 1 CAPSULE. PO SCH (08:42)
[2017-10-17] MEDS: CITALOPRAM 20 MG TABLET. PO SCH (08:43)
[2017-10-17] MEDS: ASPIRIN ENTERIC COATED 81 MG TABLET.DR. PO SCH (08:43)
[2017-10-17] MEDS: CARVEDILOL 12.5 MG TABLET. PO SCH ×2 (08:43→17:46)
[2017-10-17] MEDS: LISINOPRIL 20 MG TABLET PO SCH (08:43)
[2017-10-17] MEDS: INSULIN LISPRO 300 UNITS/3 ML INSULN.PEN. SQ SCH ×3 (08:44→17:09)
[2017-10-17 10:59] VITALS: BP 156/75
[2017-10-17] MEDS: POTASSIUM CL 40MEQ IN 0.9%NACL 1,000 ML IV SCH (11:15)
--- NOTE | 2017-10-17 11:56 | PDOC ---
Subjective: Subjective: Seen earlier when unable to use [employer]. Hasn't eaten today - has abd pain and nausea. Says stooling. J tube functioning for feeds. Objective: Vital Signs: Vital Signs Date Time Temp Pulse Resp B/P (MAP) Pulse Ox O2 Delivery O2 Flow Rate FiO2 10/17/17 10:59 98.5 95 16 156/75 (102) 100 Room Air 98.5 Labs: Laboratory Tests Test 10/16/17 16:33 10/16/17 20:40 10/17/17 03:29 10/17/17 03:55 Glucose (Fingerstick) 144 mg/dL 309 mg/dL 66 mg/dL 60 mg/dL Test 10/17/17 04:59 10/17/17 05:20 10/17/17 07:10 10/17/17 08:40 Glucose (Fingerstick) 83 mg/dL 133 mg/dL White Blood Count 4.6 x10^3/uL Red Blood Count 3.45 x10^6/uL Hemoglobin 9.5 g/dL Hematocrit 28.3 % Mean Corpuscular Volume 82 fL Mean Corpuscular Hemoglobin 28 pg Mean Corpuscular Hemoglobin Concent 34 g/dL Red Cell Distribution Width 17.1 % Platelet Count 295 x10^3/uL Neutrophils (%) (Auto) 66 % Lymphocytes (%) (Auto) 22 % Monocytes (%) (Auto) 9 % Eosinophils (%) (Auto) 1 % Basophils (%) (Auto) 1 % Neutrophils # (Auto) 3.0 x10^3uL Lymphocytes # (Auto) 1.0 x10^3/uL Monocytes # (Auto) 0.4 x10^3/uL Eosinophils # (Auto) 0.1 x10^3/uL Basophils # (Auto) 0.0 x10^3/uL Sodium Level 140 mmol/L Potassium Level 4.2 mmol/L Chloride Level 106 mmol/L Carbon Dioxide Level 28 mmol/L Anion Gap 6 Blood Urea Nitrogen 10 mg/dL Creatinine 0.8 mg/dL Estimated GFR (Cockcroft-Gault) 73.4 Glucose Level 82 mg/dL Calcium Level 8.6 mg/dL Lactic Acid Level 0.8 mmol/L PE: GEN: NAD LUNGS: CTAB HEART: RRR ABD: soft, periumbilical tenderness, J tube feeds running NEURO/PSYCH: A & O 3 A/P: Chronic abd pain and n/v - worse today Gastroparesis w/ J tube - restarted feeds yesterday, functioning -- Worse today - seemed had planned to eat a lot yesterday evening when we saw ( baked potato w/ cheese, etc). Not sure she grasps the concept of following a gastroparesis diet. Supplement lack of PO intake w/ J tube, continue Reglan and PPI. MAXINE JEONG Oct 17, 2017 11:56
--- NOTE | 2017-10-17 13:33 | PDOC ---
PROGRESS NOTES Chief Complaint Chief Complaint acute on Chronic Pancreatitis CAD, stablem Hx stents breast cancer diabetes 2 hypertension appendectomy J-tube pulmonary embolism cholecystectomy tonsillectomy hypokalemia History of Present Illness History of Present Illness abdominal pain persists try oob to chair may try to DC soon, will try is ambulating, Vitals Vitals Vital Signs Date Time Temp Pulse Resp B/P (MAP) Pulse Ox O2 Delivery O2 Flow Rate FiO2 10/17/17 10:59 98.5 95 16 156/75 (102) 100 Room Air 98.5 Physical Exam General: Alert, Oriented X3 Heart: Regular rate, Normal S1 Lungs: Clear Abdomen: Soft, Other (tender abdomen epigastric area as well as lower abdomen) Extremities: No clubbing, No cyanosis Skin: No rashes, No breakdown Labs LABS Laboratory Tests Test 10/16/17 16:33 10/16/17 20:40 10/17/17 03:29 10/17/17 03:55 Glucose (Fingerstick) 144 mg/dL (70-99) 309 mg/dL (70-99) 66 mg/dL (70-99) 60 mg/dL (70-99) Test 10/17/17 04:59 10/17/17 05:20 10/17/17 07:10 10/17/17 08:40 Glucose (Fingerstick) 83 mg/dL (70-99) 133 mg/dL (70-99) White Blood Count 4.6 x10^3/uL (4.0-11.0) Red Blood Count 3.45 x10^6/uL (3.50-5.40) Hemoglobin 9.5 g/dL (12.0-15.5) Hematocrit 28.3 % (36.0-47.0) Mean Corpuscular Volume 82 fL (79-100) Mean Corpuscular Hemoglobin 28 pg (25-35) Mean Corpuscular Hemoglobin Concent 34 g/dL (31-37) Red Cell Distribution Width 17.1 % (11.5-14.5) Platelet Count 295 x10^3/uL (140-400) Neutrophils (%) (Auto) 66 % (31-73) Lymphocytes (%) (Auto) 22 % (24-48) Monocytes (%) (Auto) 9 % (0-9) Eosinophils (%) (Auto) 1 % (0-3) Basophils (%) (Auto) 1 % (0-3) Neutrophils # (Auto) 3.0 x10^3uL (1.8-7.7) Lymphocytes # (Auto) 1.0 x10^3/uL (1.0-4.8) Monocytes # (Auto) 0.4 x10^3/uL (0.0-1.1) Eosinophils # (Auto) 0.1 x10^3/uL (0.0-0.7) Basophils # (Auto) 0.0 x10^3/uL (0.0-0.2) Sodium Level 140 mmol/L (136-145) Potassium Level 4.2 mmol/L (3.5-5.1) Chloride Level 106 mmol/L (98-107) Carbon Dioxide Level 28 mmol/L (21-32) Anion Gap 6 (6-14) Blood Urea Nitrogen 10 mg/dL (7-20) Creatinine 0.8 mg/dL (0.6-1.0) Estimated GFR (Cockcroft-Gault) 73.4 Glucose Level 82 mg/dL (70-99) Calcium Level 8.6 mg/dL (8.5-10.1) Lactic Acid Level 0.8 mmol/L (0.4-2.0) Test 10/17/17 11:40 Glucose (Fingerstick) 107 mg/dL (70-99) Comment Review of Relevant I have reviewed the following items yanet (where applicable) has been applied. Labs Laboratory Tests Test 10/15/17 17:02 10/15/17 20:23 10/16/17 05:29 10/16/17 05:44 Glucose (Fingerstick) 100 mg/dL (70-99) 243 mg/dL (70-99) 38 mg/dL (70-99) White Blood Count 5.3 x10^3/uL (4.0-11.0) Red Blood Count 3.23 x10^6/uL (3.50-5.40) Hemoglobin 8.9 g/dL (12.0-15.5) Hematocrit 26.4 % (36.0-47.0) Mean Corpuscular Volume 82 fL (79-100) Mean Corpuscular Hemoglobin 28 pg (25-35) Mean Corpuscular Hemoglobin Concent 34 g/dL (31-37) Red Cell Distribution Width 17.1 % (11.5-14.5) Platelet Count 316 x10^3/uL (140-400) Neutrophils (%) (Auto) 72 % (31-73) Lymphocytes (%) (Auto) 18 % (24-48) Monocytes (%) (Auto) 9 % (0-9) Eosinophils (%) (Auto) 1 % (0-3) Basophils (%) (Auto) 0 % (0-3) Neutrophils # (Auto) 3.8 x10^3uL (1.8-7.7) Lymphocytes # (Auto) 0.9 x10^3/uL (1.0-4.8) Monocytes # (Auto) 0.5 x10^3/uL (0.0-1.1) Eosinophils # (Auto) 0.1 x10^3/uL (0.0-0.7) Basophils # (Auto) 0.0 x10^3/uL (0.0-0.2) Erythrocyte Sedimentation Rate 30 (0-25) Sodium Level 142 mmol/L (136-145) Potassium Level 3.5 mmol/L (3.5-5.1) Chloride Level 108 mmol/L (98-107) Carbon Dioxide Level 29 mmol/L (21-32) Anion Gap 5 (6-14) Blood Urea Nitrogen 6 mg/dL (7-20) Creatinine 0.7 mg/dL (0.6-1.0) Estimated GFR (Cockcroft-Gault) 85.6 BUN/Creatinine Ratio 9 (6-20) Glucose Level 39 mg/dL (70-99) Calcium Level 8.5 mg/dL (8.5-10.1) Total Bilirubin 0.2 mg/dL (0.2-1.0) Aspartate Amino Transf (AST/SGOT) 9 U/L (15-37) Alanine Aminotransferase (ALT/SGPT) 12 U/L (14-59) Alkaline Phosphatase 91 U/L (46-116) Total Protein 5.3 g/dL (6.4-8.2) Albumin 2.3 g/dL (3.4-5.0) Albumin/Globulin Ratio 0.8 (1.0-1.7) Amylase Level 40 U/L (25-115) Lipase 198 U/L (73-393) Test 8/20/18 06:08 10/16/17 07:35 10/16/17 11:40 10/16/17 16:33 Glucose (Fingerstick) 207 mg/dL (70-99) 231 mg/dL (70-99) 177 mg/dL (70-99) 144 mg/dL (70-99) Test 10/16/17 20:40 10/17/17 03:29 10/17/17 03:55 10/17/17 04:59 Glucose (Fingerstick) 309 mg/dL (70-99) 66 mg/dL (70-99) 60 mg/dL (70-99) 83 mg/dL (70-99) Test 10/17/17 05:20 10/17/17 07:10 10/17/17 08:40 10/17/17 11:40 White Blood Count 4.6 x10^3/uL (4.0-11.0) Red Blood Count 3.45 x10^6/uL (3.50-5.40) Hemoglobin 9.5 g/dL (12.0-15.5) Hematocrit 28.3 % (36.0-47.0) Mean Corpuscular Volume 82 fL (79-100) Mean Corpuscular Hemoglobin 28 pg (25-35) Mean Corpuscular Hemoglobin Concent 34 g/dL (31-37) Red Cell Distribution Width 17.1 % (11.5-14.5) Platelet Count 295 x10^3/uL (140-400) Neutrophils (%) (Auto) 66 % (31-73) Lymphocytes (%) (Auto) 22 % (24-48) Monocytes (%) (Auto) 9 % (0-9) Eosinophils (%) (Auto) 1 % (0-3) Basophils (%) (Auto) 1 % (0-3) Neutrophils # (Auto) 3.0 x10^3uL (1.8-7.7) Lymphocytes # (Auto) 1.0 x10^3/uL (1.0-4.8) Monocytes # (Auto) 0.4 x10^3/uL (0.0-1.1) Eosinophils # (Auto) 0.1 x10^3/uL (0.0-0.7) Basophils # (Auto) 0.0 x10^3/uL (0.0-0.2) Sodium Level 140 mmol/L (136-145) Potassium Level 4.2 mmol/L (3.5-5.1) Chloride Level 106 mmol/L (98-107) Carbon Dioxide Level 28 mmol/L (21-32) Anion Gap 6 (6-14) Blood Urea Nitrogen 10 mg/dL (7-20) Creatinine 0.8 mg/dL (0.6-1.0) Estimated GFR (Cockcroft-Gault) 73.4 Glucose Level 82 mg/dL (70-99) Calcium Level 8.6 mg/dL (8.5-10.1) Glucose (Fingerstick) 133 mg/dL (70-99) 107 mg/dL (70-99) Lactic Acid Level 0.8 mmol/L (0.4-2.0) Laboratory Tests Test 10/16/17 16:33 10/16/17 20:40 10/17/17 03:29 10/17/17 03:55 Glucose (Fingerstick) 144 mg/dL (70-99) 309 mg/dL (70-99) 66 mg/dL (70-99) 60 mg/dL (70-99) Test 10/17/17 04:59 10/17/17 05:20 10/17/17 07:10 10/17/17 08:40 Glucose (Fingerstick) 83 mg/dL (70-99) 133 mg/dL (70-99) White Blood Count 4.6 x10^3/uL (4.0-11.0) Red Blood Count 3.45 x10^6/uL (3.50-5.40) Hemoglobin 9.5 g/dL (12.0-15.5) Hematocrit 28.3 % (36.0-47.0) Mean Corpuscular Volume 82 fL (79-100) Mean Corpuscular Hemoglobin 28 pg (25-35) Mean Corpuscular Hemoglobin Concent 34 g/dL (31-37) Red Cell Distribution Width 17.1 % (11.5-14.5) Platelet Count 295 x10^3/uL (140-400) Neutrophils (%) (Auto) 66 % (31-73) Lymphocytes (%) (Auto) 22 % (24-48) Monocytes (%) (Auto) 9 % (0-9) Eosinophils (%) (Auto) 1 % (0-3) Basophils (%) (Auto) 1 % (0-3) Neutrophils # (Auto) 3.0 x10^3uL (1.8-7.7) Lymphocytes # (Auto) 1.0 x10^3/uL (1.0-4.8) Monocytes # (Auto) 0.4 x10^3/uL (0.0-1.1) Eosinophils # (Auto) 0.1 x10^3/uL (0.0-0.7) Basophils # (Auto) 0.0 x10^3/uL (0.0-0.2) Sodium Level 140 mmol/L (136-145) Potassium Level 4.2 mmol/L (3.5-5.1) Chloride Level 106 mmol/L (98-107) Carbon Dioxide Level 28 mmol/L (21-32) Anion Gap 6 (6-14) Blood Urea Nitrogen 10 mg/dL (7-20) Creatinine 0.8 mg/dL (0.6-1.0) Estimated GFR (Cockcroft-Gault) 73.4 Glucose Level 82 mg/dL (70-99) Calcium Level 8.6 mg/dL (8.5-10.1) Lactic Acid Level 0.8 mmol/L (0.4-2.0) Test 10/17/17 11:40 Glucose (Fingerstick) 107 mg/dL (70-99) Microbiology 10/12/17 Urine Culture - Final, Complete 10/12/17 Urine Culture Result 1 (OREN) - Final, Complete Medications Current Medications Fentanyl Citrate (Fentanyl 2ml Vial) 50 mcg PRN Q15MIN PRN IV PAIN GREATER THAN 3/10 Last administered on 10/12/17at 21:47; Start 10/12/17 at 21:00; Stop at 00:00; Status DC Sodium Chloride 1,000 ml @ 1,000 mls/hr Q1H IV Last administered on 10/12/17at 21:47; Start 10/12/17 at 21:30; Stop 10/12/17 at 22:29; Status DC Ondansetron HCl (Zofran) 4 mg 1X ONCE IV Last administered on 10/12/17at 21:46 ; Start 10/12/17 at 21:30; Stop 10/12/17 at 21:31; Status DC Promethazine HCl (Phenergan Im) 25 mg 1X ONCE IM Last administered on at 21:30; Start 10/12/17 at 21:30; Stop 10/12/17 at 21:31; Status DC Ondansetron HCl (Zofran) 4 mg PRN Q8HRS PRN IV NAUSEA/VOMITING 1ST CHOICE; Start 10/12/17 at 23:30; Stop 10/13/17 at 23:29; Status DC Fentanyl Citrate (Fentanyl 2ml Vial) 50 mcg PRN Q3HRS PRN IV SEVERE PAIN Last administered on 10/13/17at 00:57; Start 10/12/17 at 23:30; Stop 10/13/17 at 10:00 ; Status DC Sodium Chloride 1,000 ml @ 100 mls/hr Q10H IV Last administered on 10/13/17at 21:34; Start 10/12/17 at 23:30; Stop 10/13/17 at 23:29; Status DC Dextrose (Dextrose 50%-Water Syringe) 12.5 gm PRN Q15MIN PRN IV SEE COMMENTS Last administered on 10/16/17at 05:50; Start 10/13/17 at 08:15; Stop 10/16/17 at 10:59; Status DC Labetalol HCl (Normodyne Iv Push) 20 mg PRN Q6HRS PRN IVP HYPERTENSION, SEE COMMENTS Last administered on 10/13/17at 08:34; Start 10/13/17 at 08:30 Sodium Chloride 1,000 ml @ 75 mls/hr [id number] IV Last administered on at 01:14; Start 10/13/17 at 12:00; Stop 10/15/17 at 16:25; Status DC Morphine Sulfate (Morphine Sulfate) 2 mg PRN Q2HR PRN IV PAIN Last administered on 10/15/17at 12:16; Start 10/13/17 at 12:00; Stop 10/15/17 at 16:21 ; Status DC Lansoprazole (Prevacid) 30 mg DAILYAC FT Last administered on 10/17/17at 05:20; Start 10/13/17 at 16:30; Stop 10/17/17 at 11:56; Status DC Metoclopramide HCl (Reglan Vial) 10 mg QIDACHS IV Last administered on 12:43; Start 10/13/17 at 16:30; Stop 10/16/17 at 13:40; Status DC Amitriptyline HCl (Elavil) 20 mg QHS PO Last administered on 10/16/17 21:23; Start 10/14/17 at 21:00 Aspirin (Ecotrin) 81 mg DAILY PO Last administered on 10/17/17 08:43; Start at 09:00 Atorvastatin Calcium (Lipitor) 40 mg QHS PO Last administered on 10/16/17 21: 23; Start 10/14/17 at 21:00 Citalopram Hydrobromide (CeleXA) 20 mg DAILY PO Last administered on 10/17/17 08:43; Start 10/15/17 at 09:00 Clopidogrel Bisulfate (Plavix) 75 mg DAILYWBKFT PO Last administered on at 08:42; Start 10/15/17 at 08:00 Diltiazem HCl (Cardizem 24hr Cd) 120 mg DAILY PO Last administered on at 08:58; Start 10/15/17 at 09:00; Stop 10/15/17 at 09:29; Status DC Diphenhydramine HCl (Benadryl) 25 mg PRN Q6HRS PRN PO ITCHING; Start 10/14/17 at 20:30 Acetaminophen/ Hydrocodone Bitart (Lortab 5/325) 1 tab PRN Q8HRS PRN PO PAIN; Start 10/14/17 at 20:30; Stop 10/15/17 at 16:22; Status DC Insulin Glargine (Lantus) 25 units QHS SQ Last administered on 10/15/17at 21:49 ; Start 10/14/17 at 21:00; Stop 10/16/17 at 10:58; Status DC Lactobacillus Rhamnosus (Culturelle) 1 cap DAILY PO Last administered on 08:42; Start 10/15/17 at 09:00 Lisinopril (Prinivil) 20 mg DAILY PO Last administered on 10/17/17at 08:43; Start 10/15/17 at 09:00 Ondansetron HCl (Zofran Odt) 4 mg PRN Q6HRS PRN PO NAUSEA/VOMITING; Start 10/14 at 20:30 Trazodone HCl (Desyrel) 200 mg QHS PO Last administered on 10/16/17at 21:23; Start 10/14/17 at 21:00 Carvedilol (Coreg) 25 mg BIDWMEALS PO Last administered on 10/17/17 08:43; Start 10/14/17 at 21:00 Amylase/Lipase/ Protease (Zenpep 10,000) 1 cap TIDWMEALS PO Last administered on 10/17/17 12:27; Start 10/15/17 at 08:00 Non-Formulary Medication (Pantoprazole Sodium (Protonix)) 40 mg DAILYAC PO ; Start 10/15/17 at 07:30; Status UNV Zolpidem Tartrate (Ambien) 5 mg QHS PO Last administered on 10/16/17 21:23; Start 10/14/17 at 21:00 Diltiazem HCl (Cardizem 24hr Cd) 240 mg DAILY PO Last administered on at 08:42; Start 10/16/17 at 09:00 Diltiazem HCl (Cardizem 24hr Cd) 120 mg 1X ONCE PO Last administered on 09:53; Start 10/15/17 at 10:00; Stop 10/15/17 at 10:01; Status DC Potassium Chloride (Klor-Con) 20 meq 1X ONCE PO Last administered on at 09:52; Start 10/15/17 at 10:00; Stop 10/15/17 at 10:01; Status DC Acetaminophen/ Hydrocodone Bitart (Lortab 5/325) 1 tab PRN Q4HRS PRN PO PAIN Last administered on 10/16/17at 18:06; Start 10/15/17 at 16:30 Potassium Chloride/Sodium Chloride 1,000 ml @ 75 mls/hr [id number] IV Last administered on 10/16/17 21:23; Start 10/15/17 at 18:00; Stop 10/17/17 at 11:08 ; Status DC Insulin Glargine (Lantus) 10 units QHS SQ Last administered on 8/20/18at 21:26 ; Start 10/16/17 at 21:00; Stop 10/17/17 at 11:08; Status DC Insulin Human Lispro (HumaLOG) 0-5 UNITS TIDWMEALS SQ Last administered on 10/16at 12:49; Start 10/16/17 at 12:00 Dextrose (Dextrose 50%-Water Syringe) 12.5 gm PRN Q15MIN PRN IV SEE COMMENTS; Start 10/16/17 at 11:00 Metoclopramide HCl (Reglan Oral Solution) 10 mg QIDACHS PO Last administered on 10/17/17at 12:27; Start 10/16/17 at 16:30 Insulin Human Lispro (HumaLOG) 2 units 1X ONCE SQ Last administered on at 21:30; Start 10/16/17 at 21:30; Stop 10/16/17 at 21:31; Status DC Pantoprazole Sodium (Protonix) 40 mg DAILYAC PO ; Start 10/18/17 at 07:30 Active Scripts Active Reglan (Metoclopramide Hcl) 10 Mg Tablet 10 Mg PO QIDACHS PRN Zofran (Ondansetron Hcl) 4 Mg Tablet 1 Tab PO Q6HRS PRN Ambien (Zolpidem Tartrate) 10 Mg Tablet 1 Tab PO QHS Prinivil (Lisinopril) 20 Mg Tablet 20 Mg PO DAILY Plavix (Clopidogrel Bisulfate) 75 Mg Tablet 75 Mg PO DAILYWBKFT Reported Amitriptyline Hcl 10 Mg Tablet 2 Tab PO QHS Cardizem Cd (Diltiazem Hcl) 240 Mg Cap.er.24h 0.5 Cap PO DAILY Benadryl (Diphenhydramine Hcl) 25 Mg Capsule 25 Mg PO Q6HRS PRN Culturelle (Lactobacillus Rhamnosus Gg) 1 Each Cap.sprink 1 Each PO DAILY Lantus Solostar (Insulin Glargine,Hum.rec.anlog) 100 Unit/1 Ml Insuln.pen 25 Unit SQ QHS Hydrocodone-Apap 5-325 (Hydrocodone Bit/Acetaminophen) 1 Each Tablet 1 Tab PO PRN Q8HRS PRN Creon 12,000 Units Capsule (Lipase/Protease/Amylase) 1 Each Capsule.dr 1 Each PO TID Citalopram Hbr (Citalopram Hydrobromide) 20 Mg Tablet 1 Tab PO DAILY Carvedilol 25 Mg Tablet 1 Tab PO BID Atorvastatin Calcium 40 Mg Tablet 1 Tab PO QHS Aspirin Ec (Aspirin) 81 Mg Tablet.dr 1 Tab PO DAILY Ondansetron Odt (Ondansetron) 4 Mg Tab.rapdis 1 Tab PO PRN Q6-8HRS Protonix (Pantoprazole Sodium) 20 Mg Tablet.dr 40 Mg PO DAILYAC Metoclopramide Hcl 10 Mg Tablet 10 Mg PO QIDACHS Trazodone Hcl 100 Mg Tablet 2 Tab PO QHS Vitals/I & O Vital Sign - Last 24 Hours 10/16/17 10/16/17 10/16/17 10/16/17 15:00 17:01 18:06 19:00 Temp 98.1 98.7 98.1 98.7 Pulse 83 83 92 Resp 18 18 B/P (MAP) 140/72 (94) 140/72 110/53 (72) Pulse Ox 99 99 96 O2 Delivery Room Air Room Air Room Air 10/16/17 10/16/17 10/16/17 10/17/17 19:10 20:00 22:47 02:46 Temp 99.3 98.1 99.3 98.1 Pulse 96 86 Resp 18 B/P (MAP) 164/88 (113) 119/64 (82) Pulse Ox 99 99 96 O2 Delivery Room Air Room Air Room Air Room Air 10/17/17 10/17/17 10/17/17 10/17/17 07:00 08:42 08:43 08:43 Temp 98.6 98.6 Pulse 95 95 95 95 Resp 16 B/P (MAP) 155/70 (98) 155/70 155/70 155/70 Pulse Ox 99 O2 Delivery Room Air 10/17/17 10:59 Temp 98.5 98.5 Pulse 95 Resp 16 B/P (MAP) 156/75 (102) Pulse Ox 100 O2 Delivery Room Air Intake and Output 10/16/17 10/16/17 10/17/17 15:00 23:00 07:00 Output Total 0 ml Balance 0 ml BARRY BUENO MD Oct 17, 2017 13:33
[2017-10-17 14:44] VITALS: BP 114/66
[2017-10-17 19:00] VITALS: BP 123/69
[2017-10-17] MEDS: ATORVASTATIN CALCIUM 40 MG TABLET. PO SCH (21:03)
[2017-10-17] MEDS: HYDROcodone/APAP 5/325MG 1 TAB TABLET PO PRN (21:03)
[2017-10-17] MEDS: ZOLPIDEM 5 MG TABLET. PO SCH (21:03)
[2017-10-17] MEDS: AMITRIPTYLINE HCL 10 MG TABLET. PO SCH (21:03)
[2017-10-17] MEDS: traZODone 100 MG TABLET. PO SCH (21:03)
[2017-10-17 23:00] VITALS: BP 126/62
[2017-10-18 03:00] VITALS: BP 119/60
[2017-10-18] MEDS: METOCLOPRAMIDE ORAL SOLN 10 MG/10 ML SOLUTION. PO SCH ×2 (05:51→12:08)
[2017-10-18 06:50] LABS: CALCIUM 8.5 mg/dL (8.5-10.1); CREATININE 0.9 mg/dL (0.6-1.0); GFR 64.1
[2017-10-18 07:00] VITALS: BP 142/69
[2017-10-18 07:22] LABS: BASO % 1 % (0-3); EOS # 0.1 x10^3/uL (0.0-0.7); EOS % 1 % (0-3); HEMATOCRIT 25.1 % (36.0-47.0); HEMOGLOBIN 8.5 g/dL (12.0-15.5); LYMPH # 1.3 x10^3/uL (1.0-4.8); LYMPH % 29 % (24-48); MEAN CORPUSCULAR HEMOGLOBIN 28 pg (25-35); MEAN CORPUSCULAR HGB CONC 34 g/dL (31-37); MEAN CORPUSCULAR VOLUME 82 fL (79-100); MONO # 0.5 x10^3/uL (0.0-1.1); MONO % 12 % (0-9); NEUT # 2.4 x10^3uL (1.8-7.7); NEUT % 57 % (31-73); PLATELET COUNT 266 x10^3/uL (140-400); RED BLOOD COUNT 3.05 x10^6/uL (3.50-5.40); RED CELL DISTRIBUTION WIDTH 17.2 % (11.5-14.5); WHITE BLOOD COUNT 4.3 x10^3/uL (4.0-11.0)
[2017-10-18] MEDS ORDERED: PANTOPRAZOLE 40 MG TABLET.DR. PO SCH (07:30)
[2017-10-18] MEDS: HYDROcodone/APAP 5/325MG 1 TAB TABLET PO PRN (09:02)
[2017-10-18] MEDS: CLOPIDOGREL BISULFATE 75 MG TABLET PO SCH (09:02)
[2017-10-18] MEDS: ASPIRIN ENTERIC COATED 81 MG TABLET.DR. PO SCH (09:02)
[2017-10-18] MEDS: LACTOBACILLUS RHAMNOSUS GG 1 CAPSULE. PO SCH (09:02)
[2017-10-18] MEDS: LIPASE/PROTEAS/AMYLAS 10/32/42 CAPSULE.DR. PO SCH ×2 (09:02→12:08)
[2017-10-18] MEDS: CITALOPRAM 20 MG TABLET. PO SCH (09:03)
[2017-10-18] MEDS: LISINOPRIL 20 MG TABLET PO SCH (09:05)
[2017-10-18] MEDS: CARVEDILOL 12.5 MG TABLET. PO SCH (09:06)
[2017-10-18] MEDS: INSULIN LISPRO 300 UNITS/3 ML INSULN.PEN. SQ SCH ×2 (09:12→12:15)
[2017-10-18 11:00] VITALS: BP 121/55
--- NOTE | 2017-10-18 11:48 | PDOC ---
Subjective: Subjective: Better today. Tolerating PO w/o n/v. Abd pain stable. Stooled yesterday. J tube functioning. Objective: Vital Signs: Vital Signs Date Time Temp Pulse Resp B/P (MAP) Pulse Ox O2 Delivery O2 Flow Rate FiO2 10/18/17 10:02 Room Air 10/18/17 09:06 83 142/69 10/18/17 07:00 97.9 16 97 97.9 Labs: Laboratory Tests Test 10/17/17 16:37 10/17/17 20:07 10/18/17 00:06 10/18/17 03:34 Glucose (Fingerstick) 167 mg/dL (70-99) 252 mg/dL (70-99) 207 mg/dL (70-99) 190 mg/dL (70-99) Test 10/18/17 08:20 10/18/17 10:53 Glucose (Fingerstick) 206 mg/dL (70-99) 203 mg/dL (70-99) PE: GEN: NAD, J tube feed in process LUNGS: CTAB HEART: RRR ABD: soft, BS+ NEURO/PSYCH: A & O 3 A/P: Chronic abd pain and nausea - stable Gastroparesis w/ J tube -- Better. Look to DC? MAXINE JEONG Oct 18, 2017 11:48
[2017-10-18] MEDS ORDERED: HYDR-2758 PO (13:09)
[2017-10-18] MEDS ORDERED: INSU100I13 SQ (13:09)
[2017-10-18 15:00] VITALS: BP 96/50
[2017-10-18] MEDS ORDERED: HEPARIN PF 500 UNIT/5 ML DISP.SYRIN. IV ONE (15:00)
== END 2017-10-18 16:30 | disposition home or self-care (01) | DRG 438 ==
LOC: ER 18:25 → 4 NORTH 23:00
PROVIDERS: ADMIT Family Medicine; ATTEND Family Medicine
DX: K85.90 Acute pancreatitis without necrosis or infection, unspecified (principal); I26.99 Other pulmonary embolism without acute cor pulmonale; E87.1 Hypo-osmolality and hyponatremia; N39.0 Urinary tract infection, site not specified; D64.9 Anemia, unspecified; E11.43 Type 2 diabetes mellitus with diabetic autonomic (poly)neuropathy; E11.65 Type 2 diabetes mellitus with hyperglycemia; E78.5 Hyperlipidemia, unspecified; E87.6 Hypokalemia; F32.9 Major depressive disorder, single episode, unspecified; G89.29 Other chronic pain; I10 Essential (primary) hypertension; C50.919 Malignant neoplasm of unspecified site of unspecified female breast; I25.10 Atherosclerotic heart disease of native coronary artery without angina pectoris; K21.9 Gastro-esophageal reflux disease without esophagitis; K31.84 Gastroparesis; K57.30 Diverticulosis of large intestine without perforation or abscess without bleeding; Z51.5 Encounter for palliative care; K86.1 Other chronic pancreatitis; Z83.3 Family history of diabetes mellitus; Z85.3 Personal history of malignant neoplasm of breast; Z86.711 Personal history of pulmonary embolism; Z87.11 Personal history of peptic ulcer disease; Z90.11 Acquired absence of right breast and nipple; Z95.5 Presence of coronary angioplasty implant and graft; Z98.82 Breast implant status; Z90.49 Acquired absence of other specified parts of digestive tract; Z86.73 Personal history of transient ischemic attack (TIA), and cerebral infarction without residual deficits; Z79.899 Other long term (current) drug therapy; Z93.4 Other artificial openings of gastrointestinal tract status
CPT/HCPCS: 36415; 74176; 80048; 80053; 80307; 81001; 82150; 82962; 83605; 83690; 83735; 85025; 85651; 87086; 93005; 96361; 96372; 96374; 96375; G0480; J1815; J2270; J2405; J2550; J2765; J3010; J3480; J3490; J7030; J7042; J8597; 99285-25; G0479

== ENCOUNTER 2017-10-28 11:19 | Emergency (ER) | payer SELFPAY ==
[~2017-10-28] VITALS: Ht 157.5 cm; Wt 51.7 kg
[~2017-10-28 11:19] MED LIST changes: +DILT240C2 PO; +DIPH25CA58 PO; +LACT1CAP19 PO
[2017-10-28] MEDS ORDERED: IV NORMAL SALINE 1000ML BAG 1,000 ML IV ONE (12:00)
[2017-10-28] MEDS ORDERED: fentaNYL PF VIAL 100 MCG/2 ML VIAL IV ONE ×2 (12:15→15:15)
--- NOTE | 2017-10-28 12:34 | EKG ---
[facility] [address] [place] [address] Test Date: 2017-10-28 Test Time: 12:02:37 Pat Name: MAXINE MILLER Department: Room: Gender: [employer]: JUAN : 1960 Requested By: PEPE MEADOWS Order Number: [id number] Reading MD: Alfred Wallace MD Measurements Intervals Victor Rate: 128 P: -9 KS: 122 QRS: -13 QRSD: 76 T: 66 QT: 294 QTc: 432 Interpretive Statements SINUS TACHYCARDIA Electronically Signed On 10-31-2017 12:01:53 CDT by Alfred Wallace MD
--- NOTE | 2017-10-28 12:49 | PHYS DOC ---
Past Medical History Past Medical History: CAD, Cancer, Diabetes-Type II, Hypertension, CT, Other Additional Past Medical Histor: PE,BREAST CA,GASTROPARESIS Past Surgical History: Angioplasty, Appendectomy, Cholecystectomy, , Tonsillectomy, Other Additional Past Surgical Histo: Right Masectomy, CARDIAC STENTS,PAC,FEEDING TUBE Alcohol Use: None Drug Use: None Adult General Chief Complaint Chief Complaint: LOWER BACK PAIN OR INJURY HPI HPI Patient is a 57 year old female who presents with back pain. The patient states that she fell 2 days ago twice due to dizziness. She denies shortness of breath, chest pain or headache. She denies any other injury. The patient states that she does not have a history of dizziness and has no idea what caused the condition. She denies beginning any new medications. She denies changes in diet or recreational drug use. The patient was hospitalized here 2 weeks ago with pancreatitis. Review of Systems Review of Systems Constitutional: Denies fever or chills [] Eyes: Denies change in visual acuity, redness, or eye pain [] HENT: Denies nasal congestion or sore throat [] Respiratory: Denies cough or shortness of breath [] Cardiovascular: No additional information not addressed in HPI [] GI: Denies abdominal pain, nausea, vomiting, bloody stools or diarrhea [] : Denies dysuria or hematuria [] Musculoskeletal: Denies back pain or joint pain [] Integument: Denies rash or skin lesions [] Neurologic: See history of present illness Endocrine: Denies polyuria or polydipsia [] All other systems were reviewed and found to be within normal limits, except as documented in this note. Current Medications Current Medications Current Medications Medications (Trade) Dose Ordered Sig/Kali Start Time Stop Time Status Last Admin Dose Admin Fentanyl Citrate (Fentanyl 2ml Vial) 50 mcg 1X ONCE 10/28/17 15:15 10/28/17 15:16 DC 10/28/17 15:42 50 MCG Heparin Sodium (Porcine) (Hep Lock Adult) 500 unit 1X ONCE 10/28/17 15:45 10/28/17 15:46 DC 10/28/17 16:07 500 UNIT Info (CONTRAST GIVEN -- Rx MONITORING) 1 each PRN DAILY PRN 10/28/17 14:15 10/30/17 14:14 Insulin Human Regular (HumuLIN R VIAL) 10 unit 1X ONCE 10/28/17 14:15 10/28/17 14:16 DC 10/28/17 14:23 10 UNIT Iohexol (Omnipaque 300 Mg/ml) 60 ml 1X ONCE 10/28/17 14:15 10/28/17 14:16 DC 10/28/17 14:13 60 ML Sodium Chloride 1,000 ml @ 1,000 mls/hr 1X ONCE 10/28/17 12:00 10/28/17 12:59 DC 10/28/17 13:28 1,000 MLS/HR Allergies Allergies Allergies Coded Allergies Type Severity Reaction Last Updated Verified No Known Drug Allergies 10/05/17 No Physical Exam Physical Exam Constitutional: Well developed, well nourished, no acute distress, non-toxic appearance. [] HENT: Normocephalic, atraumatic, bilateral external ears normal, oropharynx moist, no oral exudates, nose normal. [] Eyes: PERRLA, EOMI, conjunctiva normal, no discharge. [] Neck: Normal range of motion, no tenderness, supple, no stridor. [] Cardiovascular:Heart rate regular rhythm, no murmur [] Lungs & Thorax: Bilateral breath sounds clear to auscultation [] Abdomen: Bowel sounds normal, soft, no tenderness, no masses, no pulsatile masses. [] Skin: Warm, dry, no erythema, no rash. [] Back: No tenderness, no CVA tenderness. [] Extremities: No tenderness, no cyanosis, no clubbing, ROM intact, no edema. [] Neurologic: Alert and oriented X 3, normal motor function, normal sensory function, no focal deficits noted. [] Psychologic: Affect normal, judgement normal, mood normal. [] Current Patient Data Vital Signs Vital Signs Date Time Temp Pulse Resp B/P (MAP) Pulse Ox O2 Delivery O2 Flow Rate FiO2 10/28/17 15:42 18 100 Room Air 10/28/17 13:15 108 154/82 (106) 10/28/17 11:52 98.2 98.2 Lab Values Laboratory Tests Test 10/28/17 12:38 White Blood Count 5.1 x10^3/uL (4.0-11.0) Red Blood Count 2.96 x10^6/uL (3.50-5.40) L Hemoglobin 8.3 g/dL (12.0-15.5) L Hematocrit 24.0 % (36.0-47.0) L Mean Corpuscular Volume 81 fL (79-100) Mean Corpuscular Hemoglobin 28 pg (25-35) Mean Corpuscular Hemoglobin Concent 35 g/dL (31-37) Red Cell Distribution Width 15.8 % (11.5-14.5) H Platelet Count 335 x10^3/uL (140-400) Neutrophils (%) (Auto) 73 % (31-73) Lymphocytes (%) (Auto) 16 % (24-48) L Monocytes (%) (Auto) 10 % (0-9) H Eosinophils (%) (Auto) 1 % (0-3) Basophils (%) (Auto) 1 % (0-3) Neutrophils # (Auto) 3.7 x10^3uL (1.8-7.7) Lymphocytes # (Auto) 0.8 x10^3/uL (1.0-4.8) L Monocytes # (Auto) 0.5 x10^3/uL (0.0-1.1) Eosinophils # (Auto) 0.0 x10^3/uL (0.0-0.7) Basophils # (Auto) 0.0 x10^3/uL (0.0-0.2) D-Dimer (Mera) 0.57 ug/mlFEU (0.00-0.50) H Sodium Level 131 mmol/L (136-145) L Potassium Level 3.6 mmol/L (3.5-5.1) Chloride Level 96 mmol/L (98-107) L Carbon Dioxide Level 26 mmol/L (21-32) Anion Gap 9 (6-14) Blood Urea Nitrogen 14 mg/dL (7-20) Creatinine 1.1 mg/dL (0.6-1.0) H Estimated GFR (Cockcroft-Gault) 50.8 BUN/Creatinine Ratio 13 (6-20) Glucose Level 399 mg/dL (70-99) H Calcium Level 8.8 mg/dL (8.5-10.1) Total Bilirubin 0.2 mg/dL (0.2-1.0) Aspartate Amino Transferase (AST) 10 U/L (15-37) L Alanine Aminotransferase (ALT) 10 U/L (14-59) L Alkaline Phosphatase 113 U/L (46-116) Creatine Kinase 27 U/L (26-192) Creatine Kinase MB (Mass) 0.9 ng/mL (0.0-3.6) Creatine Kinase MB Relative Index % (0-4) Troponin I Quantitative < 0.017 ng/mL (0.000-0.055) Total Protein 6.3 g/dL (6.4-8.2) L Albumin 2.7 g/dL (3.4-5.0) L Albumin/Globulin Ratio 0.8 (1.0-1.7) L Amylase Level 31 U/L (25-115) Lipase 218 U/L (73-393) Laboratory Tests 10/28/17 12:38 Laboratory Tests 10/28/17 12:38 EKG EKG [] Radiology/Procedures Radiology/Procedures [] PATIENT: MAXINE MILLER ACCOUNT: [id number] : 1960 LOCATION: ER AGE: 57 SEX: F EXAM STATUS: REG ER ORD. PHYSICIAN: PEPE MEADOWS APRN REASON: dizzy PROCEDURE: CT HEAD WO CONTRAST CT HEAD WO CONTRAST Clinical indications: DIZZY FELL TWICE, HX OF CVA, Comparison: November 23, 2012. Technique: Noncontrast axial cross sectional scanning of the head was performed. PQRS compliance Statement One or more of the following individualized dose reduction techniques were utilized for this study: 1. Automated exposure control 2. Adjustment of the mA and/or kV according to patient size 3. Use of iterative reconstruction technique Findings: No acute intracranial hemorrhage or midline shift or mass-effect or hydrocephalus or extra-axial fluid collection is seen. Mild bilateral periventricular white matter hypodensity is seen consistent with chronic small vessel ischemic disease in this age group. No sulci effacement is evident.. No skull fracture or pneumocephalus is seen. No opacification of the mastoid sinuses or the paranasal sinuses is seen. The maxillary sinuses are not completely seen in this study. Impression: No acute intracranial hemorrhage is seen. Mild chronic small vessel ischemic disease of the periventricular white matter. Electronically signed by: Noy Andino MD (10/28/2017 12:58 PM) [facility] DICTATED and SIGNED BY: NOY ANDINO MD DATE: 10/28/17 1253 PATIENT: MAXINE MILLER ACCOUNT: [id number] : 1960 LOCATION: ER AGE: 57 SEX: F EXAM STATUS: REG ER ORD. PHYSICIAN: PEPE MEADOWS APRN REASON: pain following fall PROCEDURE: LUMBAR SPINE 2-3V Indications: Back pain after a fall 2 days ago. Three-view lumbar spine series: No compression fracture or discitis or osteolytic process is evident. No anterolisthesis is evident. The transverse processes are intact. Three-view thoracic spine series: No compression fracture or discitis or osteolytic process is evident. IMPRESSION: No acute compression fracture. Electronically signed by: Noy Andino MD (10/28/2017 1:30 PM) [facility] DICTATED and SIGNED BY: NOY ANDINO MD DATE: 10/28/171326 PATIENT: MAXINE MILLER ACCOUNT: [id number] : 1960 LOCATION: ER AGE: 57 SEX: F EXAM STATUS: REG ER ORD. PHYSICIAN: PEPE MEADOWS APRN REASON: pain following fall PROCEDURE: THORACIC SPINE 3V Indications: Back pain after a fall 2 days ago. Three-view lumbar spine series: No compression fracture or discitis or osteolytic process is evident. No anterolisthesis is evident. The transverse processes are intact. Three-view thoracic spine series: No compression fracture or discitis or osteolytic process is evident. IMPRESSION: No acute compression fracture. Electronically signed by: Noy Andino MD (10/28/2017 1:30 PM) [facility] DICTATED and SIGNED BY: NOY ANDINO MD DATE: 10/28/171326 PATIENT: MAXINE MILLER ACCOUNT: [id number] : 1960 LOCATION: ER AGE: 57 SEX: F EXAM STATUS: REG ER ORD. PHYSICIAN: PEPE MEADOWS APRN REASON: elevated d dimer PROCEDURE: CT ANGIOGRAPHY CHEST CTA OF THE CHEST WITH AND WITHOUT CONTRAST Clinical indications: Chest pain and shortness of breath. History of pulmonary embolism. Technique: Noncontrast axial localizer was performed. After IV infusion of 60 cc of Isovue-370, helical CT scanning of the chest was performed using the CT pulmonary embolism protocol. A coronal MIP reconstruction was generated. PQRS compliance Statement One or more of the following individualized dose reduction techniques were utilized for this study: 1. Automated exposure control 2. Adjustment of the mA and/or kV according to patient size 3. Use of iterative reconstruction technique Comparison: Chest CTA performed on August 27, 2014. Findings: No pulmonary embolism is evident. No thoracic aortic dissection or focal aneurysmal dilatation is seen. The heart size is mildly enlarged. No pericardial effusion is seen. No enlarged thoracic lymphadenopathy is evident. No pleural effusion or pneumothorax is seen. Again seen is a posterior right lung base nodule measuring 6 mm in size. This is stable consistent with a benign finding. There is mild dependent atelectasis of both lung smith. The proximal bronchial tree is patent. No lung consolidation or lung mass is evident. No osteolytic process is evident. No adrenal mass is seen. Right breast prosthesis is present. IMPRESSION: No pulmonary embolism. Mild dependent atelectasis bilaterally. No lung consolidation is seen. Mild cardiomegaly. Electronically signed by: Noy Anidno MD (10/28/2017 2:59 PM) [facility] DICTATED and SIGNED BY: NOY ANDINO MD DATE: 10/28/17 1447 Course & Med Decision Making Course & Med Decision Making Pertinent Labs and Imaging studies reviewed. (See chart for details) The patient was given a saline bolus and 10 of regular insulin in the emergency department. There were no acute findings to explain the patient's dizziness. There were no acute fractures. We will treat her pain. The patient was given fentanyl in the emergency department for her pain. Dragon Disclaimer Dragon Disclaimer This electronic medical record was generated, in whole or in part, using a voice recognition dictation system. Departure Departure Impression: Primary Impression: Back pain Additional Impressions: Dizziness Fall from standing Disposition: HOME, SELF-CARE Condition: STABLE Referrals: NO PCP (PCP) Patient Instructions: Back Pain, Adult, Dizziness Additional Instructions: Take the medication as directed. Do not drive or operate heavy machinery while taking this medication. Follow-up with your primary care provider for reevaluation within 3 days. If worsening call 911 or return to the emergency department. Scripts Tramadol Hcl (TRAMADOL HCL) 50 Mg Tablet 50 MG PO Q6HRS PRN for PAIN, #10 TAB Prov: PEPE MEADOWS APRN 10/28/17 Problem Qualifiers PEPE MEADOWS APRN Oct 28, 2017 12:49
[2017-10-28 12:57] LABS: BASO % 1 % (0-3); EOS % 1 % (0-3); HEMOGLOBIN 8.3 g/dL (12.0-15.5); LYMPH # 0.8 x10^3/uL (1.0-4.8); LYMPH % 16 % (24-48); MEAN CORPUSCULAR HEMOGLOBIN 28 pg (25-35); MEAN CORPUSCULAR HGB CONC 35 g/dL (31-37); MEAN CORPUSCULAR VOLUME 81 fL (79-100); MONO # 0.5 x10^3/uL (0.0-1.1); MONO % 10 % (0-9); NEUT # 3.7 x10^3uL (1.8-7.7); NEUT % 73 % (31-73); PLATELET COUNT 335 x10^3/uL (140-400); RED BLOOD COUNT 2.96 x10^6/uL (3.50-5.40); RED CELL DISTRIBUTION WIDTH 15.8 % (11.5-14.5); WHITE BLOOD COUNT 5.1 x10^3/uL (4.0-11.0)
--- NOTE | 2017-10-28 13:01 | RAD ---
CT HEAD WO CONTRAST Clinical indications: DIZZY FELL TWICE, HX OF CVA, Comparison: November 23, 2012. Technique: Noncontrast axial cross sectional scanning of the head was performed. PQRS compliance Statement One or more of the following individualized dose reduction techniques were utilized for this study: 1. Automated exposure control 2. Adjustment of the mA and/or kV according to patient size 3. Use of iterative reconstruction technique Findings: No acute intracranial hemorrhage or midline shift or mass-effect or hydrocephalus or extra-axial fluid collection is seen. Mild bilateral periventricular white matter hypodensity is seen consistent with chronic small vessel ischemic disease in this age group. No sulci effacement is evident.. No skull fracture or pneumocephalus is seen. No opacification of the mastoid sinuses or the paranasal sinuses is seen. The maxillary sinuses are not completely seen in this study. Impression: No acute intracranial hemorrhage is seen. Mild chronic small vessel ischemic disease of the periventricular white matter. Electronically signed by: Emil Andino MD (10/28/2017 12:58 PM) [facility]
[2017-10-28 13:06] LABS: CALCIUM 8.8 mg/dL (8.5-10.1); CREATININE 1.1 mg/dL (0.6-1.0); GFR 50.8; POTASSIUM 3.6 mmol/L (3.5-5.1)
[2017-10-28 13:07] LABS: AMYLASE 31 U/L (25-115); LIPASE 218 U/L (73-393)
[2017-10-28 13:12] LABS: ALBUMIN 2.7 g/dL (3.4-5.0); ALBUMIN/GLOBULIN RATIO 0.8 (1.0-1.7); TOTAL BILIRUBIN 0.2 mg/dL (0.2-1.0); TOTAL PROTEIN 6.3 g/dL (6.4-8.2)
[2017-10-28 13:20] LABS: CREATINE KINASE 27 U/L (26-192)
--- NOTE | 2017-10-28 13:34 | RAD ---
Indications: Back pain after a fall 2 days ago. Three-view lumbar spine series: No compression fracture or discitis or osteolytic process is evident. No anterolisthesis is evident. The transverse processes are intact. Three-view thoracic spine series: No compression fracture or discitis or osteolytic process is evident. IMPRESSION: No acute compression fracture. Electronically signed by: Emil Andino MD (10/28/2017 1:30 PM) [facility]
--- NOTE | 2017-10-28 13:34 | RAD ---
Indications: Back pain after a fall 2 days ago. Three-view lumbar spine series: No compression fracture or discitis or osteolytic process is evident. No anterolisthesis is evident. The transverse processes are intact. Three-view thoracic spine series: No compression fracture or discitis or osteolytic process is evident. IMPRESSION: No acute compression fracture. Electronically signed by: Emil Andino MD (10/28/2017 1:30 PM) [facility]
[2017-10-28] MEDS ORDERED: CONTRAST GIVEN. MC PRN (14:15)
[2017-10-28] MEDS ORDERED: IOHEXOL 300 MG/ML 100ML VIAL. IV ONE (14:15)
[2017-10-28] MEDS ORDERED: INSULIN REGULAR 100 UNIT/ML 3ML VIAL. IV ONE (14:15)
--- NOTE | 2017-10-28 15:02 | RAD ---
CTA OF THE CHEST WITH AND WITHOUT CONTRAST Clinical indications: Chest pain and shortness of breath. History of pulmonary embolism. Technique: Noncontrast axial localizer was performed. After IV infusion of 60 cc of Isovue-370, helical CT scanning of the chest was performed using the CT pulmonary embolism protocol. A coronal MIP reconstruction was generated. PQRS compliance Statement One or more of the following individualized dose reduction techniques were utilized for this study: 1. Automated exposure control 2. Adjustment of the mA and/or kV according to patient size 3. Use of iterative reconstruction technique Comparison: Chest CTA performed on August 27, 2014. Findings: No pulmonary embolism is evident. No thoracic aortic dissection or focal aneurysmal dilatation is seen. The heart size is mildly enlarged. No pericardial effusion is seen. No enlarged thoracic lymphadenopathy is evident. No pleural effusion or pneumothorax is seen. Again seen is a posterior right lung base nodule measuring 6 mm in size. This is stable consistent with a benign finding. There is mild dependent atelectasis of both lung smith. The proximal bronchial tree is patent. No lung consolidation or lung mass is evident. No osteolytic process is evident. No adrenal mass is seen. Right breast prosthesis is present. IMPRESSION: No pulmonary embolism. Mild dependent atelectasis bilaterally. No lung consolidation is seen. Mild cardiomegaly. Electronically signed by: Emil Andino MD (10/28/2017 2:59 PM) [facility]
[2017-10-28] MEDS ORDERED: TRAM50TA PO (15:37)
[2017-10-28] MEDS ORDERED: HEPARIN PF 500 UNIT/5 ML DISP.SYRIN. IV ONE (15:45)
[2017-10-28 15:48] VITALS: BP 149/80
== END 2017-10-28 16:25 | disposition home or self-care (01) ==
LOC: ER 11:19
DX: M54.9 Dorsalgia, unspecified (principal); R42 Dizziness and giddiness; E11.9 Type 2 diabetes mellitus without complications; I10 Essential (primary) hypertension; I25.2 Old myocardial infarction; I25.10 Atherosclerotic heart disease of native coronary artery without angina pectoris; Z90.49 Acquired absence of other specified parts of digestive tract; Z90.89 Acquired absence of other organs; Z90.10 Acquired absence of unspecified breast and nipple; Z98.890 Other specified postprocedural states; W18.30XA Fall on same level, unspecified, initial encounter; Y93.89 Activity, other specified; Y92.89 Other specified places as the place of occurrence of the external cause; Y99.8 Other external cause status
CPT/HCPCS: 36415; 70450; 71275; 72072; 72100; 80053; 82150; 82553; 83690; 84484; 85025; 85379; 93005; 96361; 96374; 96375; 96376; 99285; J1815; J3010; J7030; Q9967